=== PATIENT | male | born 1940 | race Caucasian/White ===

== ENCOUNTER 2017-10-18 08:52 | Inpatient (IN) | payer OTHER, SELFPAY ==
[2017-10-09 08:48] VITALS: BMI 21.1
[2017-10-18] VITALS (14 sets, daily range): BP systolic 97–129; BP diastolic 59–78; PULSE 69–97; RESP 14–18; TEMP 36.3–37.7; O2SAT 95–99; BMI 19.1
--- NOTE | 2017-10-18 | DI.RAD.S_ITS ---
PROCEDURE: XR PELVIS 1-2V INDICATIONS: POST OPERATIVE RIGHT HIP TECHNIQUE: 1 view of the lower pelvis acquired. COMPARISON: [facility] [place], CR, XR PELVIS WITH LATERAL HIP RIGHT, 10/09/2017, 15:13. FINDINGS: Bones: Patient is status post right hip arthroplasty, with hardware components in expected positions. The hip joint appears congruent. The visualized bony structures appear intact. Soft tissues: Overlying postoperative changes are noted. No suspicious soft tissue densities. IMPRESSION: Right hip prosthesis in anatomic alignment. Dictated by: Jc Vázquez M.D. on 10/18/2017 at 12:37 Approved by: Jc Vázquez M.D. on 10/18/2017 at 12:38
--- NOTE | 2017-10-18 09:28 | SUR.PREOP ---
IV start by Joel milligan RN
[2017-10-18] MEDS: LACTATED RINGERS 1,000 ML 42 ML IV (09:39)
--- NOTE | 2017-10-18 10:00 | PM.PREOP ---
Pre-operative Note Interval Note Pre-op Check: History & Physical Reviewed by Physician and Changes
[2017-10-18] MEDS: CEFAZOLIN 1 GM/50 ML FROZ.PIGGY IV (10:19)
[2017-10-18] MEDS: CEFAZOLIN 1 GM VIAL IV (10:23)
--- NOTE | 2017-10-18 11:00 | SUR.OPER ---
Lateral on padded OR bed. Gel axillary roll. Arms secured on padded armboard with pillow supporting top arm. Padded hip positioner braces x4 - anterior and posterior chest and pelvis. Additional gel pad used anterior pelvis. Gel pad under bottom leg from knee to foot and secured with tape over sheet.
[2017-10-18] MEDS: BUPIVACAINE 0.25% W/ EPI 50 ML VIAL INJ (11:14)
[2017-10-18] MEDS: BUPIVACAINE LIPOSOME 266 MG/20 ML VIAL SUBCUT (11:15)
--- NOTE | 2017-10-18 12:02 | P.OP_ITS ---
Operative Date/Time/Diagnoses - Date of procedure: 10/18/17 Time of procedure: 11:57 Pre-op diagnosis: Right hip osteoarthritis Post-op diagnosis: same Procedure & Clinicians Procedure: Right total hip arthroplasty (CPT code 98774 with speech correction assistant) Same procedure as scheduled: Yes Indications: Patient is an 77-year-old male with severe right hip DJD. The patient has pain with activities and at rest, limited ambulation and activity tolerance, difficulties with ADLs, and failure of conservative treatment. We have discussed the nature of condition, treatment options, risks and benefits, and patient elects to proceed with total hip arthroplasty and gives informed consent. Surgeon: Giovanny Henderson Link Wire Fabric Machine Tender: Sulma Humphries Anesthesia Type: General and Spinal Operative Notes Closure Type: primary Implants & Drains: Acetabulum: Victor [employer]hew R3 acetabular component size 52 mm Femoral component: Victor [employer]hew Synergy stem size 16 with standard offset Femoral head: 36 mm + 0 cobalt chrome Estimated Blood Loss (mL): 100 Blood products transfused: none Procedure in detail: After satisfaction induction of anesthetic, and administration of IV antibiotics, the patient was positioned in the lateral decubitus position with all bony prominences well padded and pelvic position secured using a hip gps navigation installer positioning device. Right hip and lower extremity prepped and draped in the usual sterile fashion, 1st dose of intravenous tranexamic acid was administered, then a longitudinal incision was created centered over the greater trochanter and carried sharply through the skin and subcutaneous tissues down to the fascia adelina which was divided longitudinally and retracted with a Charnley retractor. External rotators visualize, cut, tagged, and retracted posteriorly, then the capsule was cut in a T-type fashion with the corners tagged and retracted. Hip was dislocated and femoral neck cut made according to preoperative templating. Acetabular retractors then placed, and the acetabular labrum and osteophytes were excised. The acetabulum was then sequentially reamed to 51 mm with an excellent circumferential ream and fit with the trial. The trial component was removed and a permanent size 52 mm Victor and Nephew R3 acetabular component was selected, positioned, and impacted with satisfactory position and fixation achieved. Permanent liner was then inserted with the elevated lip directed posteriorly. Soft tissue then removed off the lateral femoral neck in the lateral neck was entered using a box osteotome. T-handled reamers placed down the canal followed by sequential broaching to 16 with the final broach left in place for trial reduction which demonstrated excellent leg length, range of motion, and stability characteristics with a 36 mm +0 trial ball. The trial and broach were removed, and a permanent size 16 Victor and Nephew Synergy stem was selected and inserted with excellent position and fixation achieved. Another trial reduction yielded the above characteristics so the trial ball was exchanged for a permanent 36 mm +0 cobalt chrome ball. The hip was irrigated and reduced and excellent leg length range of motion and stability characteristics were achieved and maintained. Periarticular tissues were infiltrated with Exparel. The hip was copiously irrigated, and the capsule repaired with #2 Ethibond, and the piriformis was repaired back to the greater trochanter with the same. Fascia adelina closed with interrupted #1 Ethibond sutures, and the subcutaneous tissues were closed in 2 layers of 0 Vicryl and 2 0 Vicryl. Skin was closed with lexi and sterile dressings applied. Second dose of tranexamic acid was administered intravenously, and the anesthetic was terminated. Complications: none Condition: stable Disposition: PACU Plan for aftercare: Patient will be admitted to the acute care foster, and anticipate discharge on postop day 2 or 3 with follow-up in office in 10-14 days. Outpatient physical therapy will be arranged and patient will continue to observe posterior hip precautions. Patient will continue use of postoperative Lovenox for 10 days postop.
[2017-10-18] MEDS: fentaNYL 100 MCG/2 ML INJ IV (12:08)
[2017-10-18] MEDS: HYDROMORPHONE 0.5 MG INJ IV (12:25)
[2017-10-18] MEDS: LACTATED RINGERS 1,000 ML 100 ML IV (15:59)
--- NOTE | 2017-10-18 16:04 | RT ---
PT SEEN POST-OP TOTAL HIP, PT ALSO USES MDI'S AT HOME, MDI ALBUTEROL X2 WHIFFS PRN @ HOME, DPI, ADVAIR X1 WHIFF Q-DAY DPI. c SPRIVIA X1 WHIFF Q-DAY. WILL LEAVE A NOTE FOR ORDER OF THESE INHALERS.
[2017-10-18] MEDS: HYDROCODONE/ACET 5/325 TABLET 2 TAB PO ×2 (16:58→21:34)
[2017-10-18] MEDS: FLUTICASONE/SALMETEROL 500/50 14 PUFF DISKUS INH (17:19)
[2017-10-18] MEDS: CEFAZOLIN 2 GM/100 ML FROZ.PIGGY IV (18:53)
[2017-10-18] MEDS: DOCUSATE 100 MG CAPSULE PO (20:18)
[2017-10-18] MEDS: HYDROMORPHONE 0.5 MG INJ 1 MG IV (21:35)
[2017-10-19] VITALS (11 sets, daily range): BP systolic 99–133; BP diastolic 58–76; PULSE 74–105; RESP 12–19; TEMP 36.6–38.2; O2SAT 93–97; BMI 19.1
[2017-10-19] MEDS: HYDROCODONE/ACET 5/325 TABLET 2 TAB PO ×2 (01:29→05:45)
--- NOTE | 2017-10-19 02:23 | PC.NURSE ---
C/O insomnia & anxiety, states I take Lorazepam 0.5 mg. as needed twice a day @ home. No order in his MAR. Dr. Victor notified via pager, awaiting call back.
[2017-10-19] MEDS: CEFAZOLIN 2 GM/100 ML FROZ.PIGGY IV (03:00)
[2017-10-19] MEDS: LACTATED RINGERS 1,000 ML 100 ML IV (03:00)
[2017-10-19] MEDS: LORazepam 0.5 MG TABLET PO (03:15)
[2017-10-19] MEDS: HYDROMORPHONE 0.5 MG INJ 1 MG IV ×2 (04:53→08:09)
[2017-10-19 06:17] LABS: Hematocrit 35.5 % (41-53); Hemoglobin 12.2 g/dL (13.5-17.5)
[2017-10-19] MEDS: hydrOXYzine pamoate 25 MG CAPSULE PO ×4 (06:34→20:20)
[2017-10-19] MEDS: DOCUSATE 100 MG CAPSULE PO ×2 (08:09→20:20)
[2017-10-19] MEDS: FLUTICASONE/SALMETEROL 500/50 14 PUFF DISKUS INH (08:32)
[2017-10-19] MEDS: TIOTROPIUM BROMIDE 18 MCG INHALER INH (08:32)
--- NOTE | 2017-10-19 09:31 | P.PN_ITS ---
Subjective Interval history: Patient was seen postop day 1 status post right posterior JEY. Patient is doing well however he has had difficulties with oxycodone in the past and has been in pain management previously. The only thing that has worked for him so far is IV Dilaudid. He is anxious to work with physical therapy. Date Patient Seen: 10/19/17 Time Patient Seen: 09:00 Exam Vital Signs (past 8 hours): Vital Signs - 8 hr 3 10/19/17 03:06 10/19/17 04:23 10/19/17 08:33 Temperature 99.0 F Pulse Rate 76 74 84 Respiratory Rate 18 12 Blood Pressure 113/58 L 108/64 Pulse Oximetry 96 94 Pulse Oximetry 94 Fraction of Inspired Oxygen 21 Oxygen Delivery Method Room Air Oxygen Flow Rate 0 Narrative Exam Narrative: Patient is well-developed well-nourished in no acute distress. Patient alert oriented x3. Examination of the right lower extremity shows that he is neurovascularly intact with no signs of erythema edema. Dressing is clean dry and intact over the incision. Patient has full range of motion at the ankle and is able to fire quadriceps muscles. Calf is soft and compressible. Objective Labs Result Diagrams: 10/19/17 05:55 Labs: Laboratory Results - last 24 hr 10/19/17 05:55 Hgb 12.2 L Hct 35.5 L Assessment & Plan Post-op (1) Osteoarthritis of right hip: Current Visit: Yes Status: Acute Postoperative Procedures Operation Date: 10/18/17 09:45 Actual Procedures Side Surgeon p Total Hip Arthroplasty Right Giovanny Henderson MD Patient's medications were changed from oxycodone to Dilaudid is he has not had good success with oxycodone in the past. He will require physical therapy and continue DVT prophylaxis. Discharge home possible tomorrow. Postoperative day: 1 Postoperative plan: routine post-op care, see orders and ambulate Time Spent With Patient less than 15 minutes Quality VTE Deep Vein Thrombosis/Pulmonary Embolism Present on Admission: No
[2017-10-19] MEDS: ENOXAPARIN 40 MG/0.4 ML SYRINGE SUBCUT (10:03)
[2017-10-19] MEDS: HYDROMORPHONE 2 MG TABLET PO ×3 (10:05→19:32)
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
--- NOTE | 2017-10-19 12:13 | CM.DPC ---
Addendum entered by Varsha Hernandez 10/19/17 12:38: SW requested OT eval for DCP and Auth needs. Original Note: Patient's discharge goals remain home with supportive family. Patient declines PT recommendation for SNF. Patient agreeable to allow SW to initiate SNF auth if patient decides to accept PT recommendation. SNF auth faxed to [place] this date. Patient eligible for SNF coverage effective Saturday 10/21.
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
--- NOTE | 2017-10-19 15:59 | OT.IP.TRT ---
Current Diagnoses Unilateral primary osteoarthritis, right hip (10/18/17) Surgery Performed Operation Date: 10/18/17 09:45 Actual Procedures p Total Hip Arthroplasty(Right) - Giovanny Henderson MD Occupational Therapy Treatment Note M2 OT-IP Current Condition Start: 10/19/17 15:49 Freq: Status: Active Protocol: Document 10/19/17 15:50 ADH (Rec: 10/19/17 15:59 ADH [id number]) Occupational Therapy Current Condition Current Condition Treatment Diagnosis RTHA Diagnosis Onset Date 10/18/17 Post Operative Precautions Posterior Hip Precautions No Hip Flexion > 90 degrees No Hip Internal Rotation No Hip Adduction Other Precautions falls Weight Bearing Status Weight Bearing Status Weight Bear as Tolerated M3 OT- IP Subjective and Pain Start: 10/19/17 15:49 Freq: Status: Active Protocol: Document 10/19/17 15:50 ADH (Rec: 10/19/17 15:59 ADH [email or web address]) OT- Subjective Occupational Therapy Visit Type Type Initial Evaluation Visit Start Time 03:02 Visit Stop Time 03:52 Total Visit Minutes 50 Notes Pt agreeable to OT eval, premedicated Occupational Therapy Visit Comments Patient/Caregiver Goals to d/c home OT Pain Assessment Pain When Pain Assessed During Mobility Pain Present Pain Present Pain Reported Location Bilateral Neck Pain Behaviors Calling Out Facial Grimacing Guarding Holding Area Moaning Wincing Management Techniques Apply Cold Distraction Elevation Modification of Treatment Re-positioning Timing of Activity with Medications M6 OT- IP Functional Cognition Start: 10/19/17 15:49 Freq: Status: Active Protocol: Document 10/19/17 15:50 ADH (Rec: 10/19/17 15:59 ADH [email or web address]) Cognitive Factors Limiting Selfcare Function Cognitive Ability Level of Alertness Drowsy Lethargic Patient Orientation Name Date Year Situation Attention Span Ability Unable to Focus Unable to Sustain Attention Ability to Follow Commands Able to Follow One Step Commands Safety Awareness Decreased Recall of Precautions Decreased Ability to Apply Precautions Problem Solving Ability Needs Assist to Identify Solutions Cognitive Comments Cognitive Assessment Comments Pt recalled 0/3 precautions, needed total A to adhere to precautions during transfers OT- Vision and Hearing OT- Vision Assessment Visual Acuity Glasses All The Time M7 OT- IP Mobility and Balance Start: 10/19/17 15:49 Freq: Status: Active Protocol: Document 10/19/17 15:50 ADH (Rec: 10/19/17 15:59 ADH [email or web address]) OT- Bed Mobility Assessment Rolling Level of Assistance Moderate Assistance Supine to Sit Supine to Sit Assist Maximum Assistance Sit to Supine Sit to Supine Assist Maximum Assistance Scooting Scooting to Edge of Bed Maximum Assistance OT-Transfer Assessment Sit to and From Stand Sit to and from Stand Moderate Assistance 2 Person Assistance Transfers Transfer Ability Maximum Assistance 2 Person Assistance Technique Transfer Destination Chair Transfer Technique Stand Step Pivot Devices Transfer Assistive Devices Gait Belt Front Wheeled Walker Comments Mobility Comments Pt with previous contracture of R ankle into plantar flexion, unable to weight bear on R leg d/t pain and fear OT- Gait Assessment Gait Gait Assistance Required: Maximum Assistance 2 Person Assist Distance (Feet) (feet) 10 Comments Gait Ability Comments Able to bear some weight onto R leg, not much OT- Balance Assessment Sitting Balance and Reactions Static Sitting Balance Ability Good Dynamic Sitting Balance Ability Fair Standing Balance and Reactions Static Standing Balance Ability Fair Dynamic Standing Balance Ability Fair M9 OT- IP Assessment and Plan Start: 10/19/17 15:49 Freq: Status: Active Protocol: Document 10/19/17 15:50 ADH (Rec: 10/19/17 15:59 ADH [email or web address]) OT Summary Assessment and Plan Potential Rehabilitation Potential Good Analytic Complexity at Evaluation Low Summary OT Impairments Pain Range of Motion Strength Balance Coordination Functional Cognition Functional Mobility Assessment Summary Pt with difficulty following 1 step cues despite tactile support. Pt with eyes closed throughout, needing cues to open 100% of time. Pt reports not drowsy, but 'eyes keep shutting on me'. Pt's decreased cognition and alertness likely d/t medication management. Despite premedication, pt cont to have low tolerance for any perceived movement or contact with RLE, often grimacing or wincing before contact is made . Pt was guarded throughout, which may have exacerbated his pain perception. Pt is far below baseline functional mobility, and below previous PT session. Pt is not appropriate to d/c home without increased support, which spouse is unable to provide. Pt will benefit from skilled OT services before d/c to SNF Goals Toileting Goal Contact Guard Assistance Toilet Transfer Goal Contact Guard Assistance Frequency of Treatment Frequency Of Treatment Once a Day Treatment Plan OT Treatment Plan ADL Training Functional Mobility Patient/Family Education Discharge Planning
[2017-10-19] MEDS: HYDROMORPHONE 4 MG TABLET PO ×2 (16:00→22:28)
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
[2017-10-20] VITALS (9 sets, daily range): BP systolic 106–158; BP diastolic 55–78; PULSE 76–107; RESP 15–18; TEMP 35.5–37.4; O2SAT 92–99
[2017-10-20] MEDS: LORazepam 0.5 MG TABLET PO (00:10)
--- NOTE | 2017-10-20 02:08 | PC.NURSE ---
Checked pt. to medicate him with 4 mg. Dilaudid PO, but he's sound asleep. Medicated with 0.5 mg. of PO Ativan @ 0010, will monitor.
[2017-10-20] MEDS: HYDROMORPHONE 2 MG TABLET PO ×6 (03:43→22:57)
[2017-10-20] MEDS: DOCUSATE 100 MG CAPSULE PO (08:13)
[2017-10-20] MEDS: ENOXAPARIN 40 MG/0.4 ML SYRINGE SUBCUT (09:08)
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
[2017-10-20] MEDS: FLUTICASONE/SALMETEROL 500/50 14 PUFF DISKUS INH ×2 (09:31→19:03)
[2017-10-20] MEDS: TIOTROPIUM BROMIDE 18 MCG INHALER INH (09:31)
--- NOTE | 2017-10-20 09:54 | PM.PNPO.1 ---
Subjective Date Patient Seen: 10/20/17 Time Patient Seen: 09:54 Interval history: Pt is status post right total hip arthroplasty by Dr. Henderson. Postop day 2. Patient had a lot of issues with pain control yesterday and was switched to Dilaudid 2 mg which is controlling his pain today. He is not mobilize much with physical therapy at all. He also has issues at home where his is sick and cannot take care of him but he refuses to go to a residential facility for further rehab and therapy. He will need to be in the hospital until probably Sunday before being discharged home. Exam Vital Signs (past 8 hours): Vital Signs - 8 hr 10/20/17 06:33 10/20/17 08:00 10/20/17 09:32 Temperature 98.6 F 97.3 F L Pulse Rate 89 94 H 88 Respiratory Rate 16 18 18 Blood Pressure 154/75 H 130/78 H Pulse Oximetry 99 97 94 Pulse Oximetry 94 Fraction of Inspired Oxygen 21 Oxygen Delivery Method Room Air Oxygen Flow Rate 0 Narrative Exam Narrative: Patient in bed. Appears comfortable. Alert and orient x3. Right hip dressing clean and dry. Bilateral calf soft and nontender. Good strength in right ankle. Neurovascular status intact. There is previous scarring from the right patella area all the way down to the right ankle. Objective Labs Result Diagrams: 10/19/17 05:55 Assessment & Plan Post-op (1) Osteoarthritis of right hip: Problem details: Patient is status post right total hip replacement. Postop day 2. Patient is slow to ambulate due to pain control issues postop day 1. Patient will mobilize with physical therapy today. DVT prophylaxis with Lovenox and SCDs. Anticipate discharge home with home health PT on Sunday. Current Visit: Yes Status: Acute Postoperative Procedures Operation Date: 10/18/17 09:45 Actual Procedures Side Surgeon p Total Hip Arthroplasty Right Giovanny Henderson MD Time Spent With Patient less than 15 minutes Quality VTE Deep Vein Thrombosis/Pulmonary Embolism Present on Admission: No
--- NOTE | 2017-10-20 10:02 | P.PN_ITS ---
Subjective Date Patient Seen: 10/20/17 Time Patient Seen: 09:54 Interval history: Pt is status post right total hip arthroplasty by Dr. Henderson. Postop day 2. Patient had a lot of issues with pain control yesterday and was switched to Dilaudid 2 mg which is controlling his pain today. He is not mobilize much with physical therapy at all. He also has issues at home where his is sick and cannot take care of him but he refuses to go to a retirement facility for further rehab and therapy. He will need to be in the hospital until probably Sunday before being discharged home. Exam Vital Signs (past 8 hours): Vital Signs - 8 hr 3 10/20/17 06:33 10/20/17 08:00 10/20/17 09:32 Temperature 98.6 F 97.3 F L Pulse Rate 89 94 H 88 Respiratory Rate 16 18 18 Blood Pressure 154/75 H 130/78 H Pulse Oximetry 99 97 94 Pulse Oximetry 94 Fraction of Inspired Oxygen 21 Oxygen Delivery Method Room Air Oxygen Flow Rate 0 Narrative Exam Narrative: Patient in bed. Appears comfortable. Alert and orient x3. Right hip dressing clean and dry. Bilateral calf soft and nontender. Good strength in right ankle. Neurovascular status intact. There is previous scarring from the right patella area all the way down to the right ankle. Objective Labs Result Diagrams: 10/19/17 05:55 Assessment & Plan Post-op (1) Osteoarthritis of right hip: Problem details: Patient is status post right total hip replacement. Postop day 2. Patient is slow to ambulate due to pain control issues postop day 1. Patient will mobilize with physical therapy today. DVT prophylaxis with Lovenox and SCDs. Anticipate discharge home with home health PT on Sunday. Current Visit: Yes Status: Acute Postoperative Procedures Operation Date: 10/18/17 09:45 Actual Procedures Side Surgeon p Total Hip Arthroplasty Right Giovanny Henderson MD Time Spent With Patient less than 15 minutes Quality VTE Deep Vein Thrombosis/Pulmonary Embolism Present on Admission: No
[2017-10-20] MEDS: MAGNESIUM HYDROXIDE 30 ML UDC PO (10:13)
--- NOTE | 2017-10-20 12:15 | PT.IPTN ---
Current Diagnoses Unilateral primary osteoarthritis, right hip (10/18/17) Surgery Performed Operation Date: 10/18/17 09:45 Actual Procedures p Total Hip Arthroplasty(Right) - Giovanny Henderson MD Physical Therapy Treatment Note M2 PT-IP Current Condition Start: 10/19/17 11:34 Freq: NEEDED Status: Active Protocol: Document 10/19/17 11:34 AB (Rec: 10/19/17 11:49 AB [id number]) Physical Therapy Current Condition Current Condition Evaluation Date 10/19/17 Treatment Diagnosis s/p R JEY; difficulty in walking Onset Date 10/18/17 Post Operative Precautions Posterior Hip Precautions No Hip Flexion > 90 degrees No Hip Internal Rotation No Hip Adduction Other Precautions falls Weight Bearing Status Weight Bearing Status Weight Bear as Tolerated M3 PT-IP Subjective Start: 10/19/17 11:34 Freq: NEEDED Status: Active Protocol: Document 10/20/17 12:03 AB (Rec: 10/20/17 12:15 AB [id number]) Subjective Physical Therapy Visit Type Type Treatment Note Visit Start Time 11:19 Visit Stop Time 12:04 Total Visit Minutes 35 Number of ENGINEERING SURVEYOR Visits 0 Physical Therapy Visit Comments Patient Comments pt requested to use the toilet Therapy Pain Assessment Pain When Pain Assessed At Rest Pain Present Pain Present Pain Reported Location Bilateral Neck Intensity 4 Scale Used Numeric (1 - 10) Pain Management Techniques Timing of Activity with Medications M4 PT-IP Mobility and Gait Start: 10/19/17 11:34 Freq: NEEDED Status: Active Protocol: Document 10/20/17 12:03 AB (Rec: 10/20/17 12:15 AB [id number]) PT-Bed Mobility Assessment Supine to Sit Supine to Sit Minimal Assistance Moderate Assistance Scooting Scooting to Edge of Bed Minimal Assistance PT-Transfer Assessment Sit to and From Stand Sit to and from Stand Maximum Assistance Equipment Transfer Assistive Device Gait Belt Front Wheeled Walker Orthotic/Prosthetic Devices or Brace: No Transfers Transfer Destination Chair Bedside Commode Transfer Technique Stand Step Pivot Transfer Ability Level of Assist Maximum Assistance Comments Mobility Comments pt required 3 attempts for sit to stand before being able to complete with max cues. required RLE stabilization as RLE tends to rotate inwards. pt transferred to bedside commode using fWW max A. came back to assist pt with NAC present. pt completed sit to stand from bedside commode max A and max cues and was able to maintain standing mod A using FWW while NAC assisted with hygiene care. pt transferred to chair from bedside commode taking ~ 4 steps using FWW max A and cues . assisted pt with descent to chair mod A and max cues. positioned pt on chair. left pt with NAC. M5 PT-IP Objective Assessments Start: 10/19/17 11:34 Freq: NEEDED Status: Active Protocol: Document 10/19/17 11:34 AB (Rec: 10/19/17 11:49 AB [id number]) Orientation Orientation/Cognition Level of Alertness Confusional State Orientation Name Situation Safety Awareness Decreased Safety Awareness Memory Description Short Term Impaired Nursing Home Impaired Strength Lower Extremity Strength Assessment Bilaterally Impaired M6 PT-IP Treatment Start: 10/19/17 11:34 Freq: NEEDED Status: Active Protocol: Document 10/20/17 12:03 AB (Rec: 10/20/17 12:15 AB [id number]) Physical Therapy Treatment Education Post-Op Education Precautions Weight Bearing Status Post-Op Packet Safety Other Treatments Other Treatment Performed reviewed R posterior hip precautions and pt continues to require cues to recall M7 PT-IP Assessment and Plan Start: 10/19/17 11:34 Freq: NEEDED Status: Active Protocol: Document 10/20/17 12:03 AB (Rec: 10/20/17 12:15 AB [id number]) PT Summary Assessment and Plan Potential Rehabilitation Potential Fair Summary Impairments Pain ROM Strength Balance Coordination Sensation Cognition Bed Mobility Transfers Gait Activity Tolerance Progress Towards Goals Slow Progress due to Medical Issues Assessment Summary pt progressing slowly but continues to require max A with mobility and max cues for all tasks. pt will require SNF rehab to improve function and mobility. Pt's spouse will not be able to assist pt at home. Goals Bed Mobility Goal Contact Guard Assistance Transfer Goal Contact Guard Assistance Gait Goal Contact Guard Assistance Gait Distance 100 Other Goals up/down 2 steps without rails Days to Meet Goals 3 Frequency of Treatment Frequency Of Treatment Twice a Day Treatment Plan Physical Therapy Treatment Plan Bed Mobility Training Transfer Training Gait Training Therapeutic Exercise Balance Retraining Post Op Education Discharge Planning Hot or Cold Pack Neuromuscular Re-ed Coordination Retraining Manual Therapy Recommendations To Nursing Amount of Assist Needed 1 Person Assist 2 Person Assist Discharge Recommendations PT Discharge Recommendations SNF Rehab Equipment Needed for Home Before FWW: pt will see if he can Discharge borrow/rent one
--- NOTE | 2017-10-20 14:13 | CM.DPC ---
Addendum entered by Leonor Perdomo LPN 10/20/17 15:39: clinical is faxed. Will need to send F/F paperwork, final HH orders and H&P tomorrow. Will follow up. Original Note: Addendum entered by Leoonr Perdomo LPN 10/20/17 15:11: [facility] had not called back so called [facility] and spoke with Belem. She confirms they can see pt on Sunday if he d/c's Sunday. Initial clinical faxed to [facility] per her request: [phone] Will follow with further paperwork tomorrow. Pt is updated. Original Note: DCP: case received, EMR reviewed and met this morning with pt and ortho SERENA Blackmon. Pt states firmly that he does not wish a snf rehab stay and does plan to go home. He would very much like HH PT/OT. Agency choice list: provided: [facility]: choice if can go out day after d/c. (d/c expected Sunday). referral to [facility]/. will await callback. Face/Face: started: Dr. Henderson. OT/PT orders will be obtained. SERENA Blackomn is very much in favor of this plan. Spoke with pt's Velma cell: [phone] at her request and after receiving pt's ok) and she , too, is very agreeable. She says her did go to snf rehab when had his L hip 4 years ago and was miserable. P: home, likely Sunday, OT/PT. PT's friend Esa will pick him up and he will arrange this.
--- NOTE | 2017-10-20 14:27 | OT.IP.TRT ---
Current Diagnoses Unilateral primary osteoarthritis, right hip (10/18/17) Surgery Performed Operation Date: 10/18/17 09:45 Actual Procedures p Total Hip Arthroplasty(Right) - Giovanny Henderson MD Occupational Therapy Treatment Note M2 OT-IP Current Condition Start: 10/19/17 15:49 Freq: Status: Active Protocol: Document 10/19/17 15:50 ADH (Rec: 10/19/17 15:59 ADH [email or web address]) Occupational Therapy Current Condition Current Condition Treatment Diagnosis RTHA Diagnosis Onset Date 10/18/17 Post Operative Precautions Posterior Hip Precautions No Hip Flexion > 90 degrees No Hip Internal Rotation No Hip Adduction Other Precautions falls Weight Bearing Status Weight Bearing Status Weight Bear as Tolerated M3 OT- IP Subjective and Pain Start: 10/19/17 15:49 Freq: Status: Active Protocol: Document 10/20/17 14:24 ADH (Rec: 10/20/17 14:27 ADH [email or web address]) OT- Subjective Occupational Therapy Visit Type Type Treatment Note Visit Start Time 01:58 Visit Stop Time 02:23 Total Visit Minutes 25 Notes Pt agreeable to OT services with encouragement OT Pain Assessment Pain When Pain Assessed At Rest Pain Present Pain Present Pain Reported Location Bilateral Neck Intensity 5 Scale Used Numeric (1 - 10) Management Techniques Distraction Elevation Modification of Treatment Re-positioning M4 OT- IP ADL's Start: 10/19/17 15:49 Freq: Status: Active Protocol: Document 10/20/17 14:24 ADH (Rec: 10/20/17 14:27 ADH [email or web address]) OT ADL-Dressing General Eval Lower Body Dressing Ability Standby Assistance Comments OT Dressing Comments Pt demo'd sock donning with sock aide on non operated leg, verbal cues only. M6 OT- IP Functional Cognition Start: 10/19/17 15:49 Freq: Status: Active Protocol: Document 10/19/17 15:50 ADH (Rec: 10/19/17 15:59 ADH [email or web address]) Cognitive Factors Limiting Selfcare Function Cognitive Ability Level of Alertness Drowsy Lethargic Patient Orientation Name Date Year Situation Attention Span Ability Unable to Focus Unable to Sustain Attention Ability to Follow Commands Able to Follow One Step Commands Safety Awareness Decreased Recall of Precautions Decreased Ability to Apply Precautions Problem Solving Ability Needs Assist to Identify Solutions Cognitive Comments Cognitive Assessment Comments Pt recalled 0/3 precautions, needed total A to adhere to precautions during transfers OT- Vision and Hearing OT- Vision Assessment Visual Acuity Glasses All The Time M7 OT- IP Mobility and Balance Start: 10/19/17 15:49 Freq: Status: Active Protocol: Document 10/20/17 14:24 ADH (Rec: 10/20/17 14:27 ADH [email or web address]) OT-Transfer Assessment Sit to and From Stand Sit to and from Stand Minimal Assistance Transfers Transfer Ability Minimal Assistance Technique Transfer Destination Bedside Commode Transfer Technique Stand Step Pivot Devices Transfer Assistive Devices Gait Belt Front Wheeled Walker Comments Mobility Comments Pt with improved sit/stand from chairs with arms x 2, incl BSC and FWW, min A only. Improved pain management this session. improved cognition and mobility and alertness. M9 OT- IP Assessment and Plan Start: 10/19/17 15:49 Freq: Status: Active Protocol: Document 10/20/17 14:24 ADH (Rec: 10/20/17 14:27 ADH [email or web address]) OT Summary Assessment and Plan Summary OT Impairments Pain Strength Balance Progress Towards Goals Progressing Toward Goals Assessment Summary Cont to make good progress toward goals. Frequency of Treatment Frequency Of Treatment Once a Day Treatment Plan OT Treatment Plan ADL Training Functional Mobility Discharge Recommendations OT Discharge Recommendations SNF Rehab Other Discharge Recommendations Cont to recc SNF d/t increased needs over baseline and slow progress.
--- NOTE | 2017-10-20 15:50 | PT.IPTN ---
Current Diagnoses Unilateral primary osteoarthritis, right hip (10/18/17) Surgery Performed Operation Date: 10/18/17 09:45 Actual Procedures p Total Hip Arthroplasty(Right) - Giovanny Henderson MD Physical Therapy Treatment Note M2 PT-IP Current Condition Start: 10/19/17 11:34 Freq: NEEDED Status: Active Protocol: Document 10/19/17 11:34 AB (Rec: 10/19/17 11:49 AB [id number]) Physical Therapy Current Condition Current Condition Evaluation Date 10/19/17 Treatment Diagnosis s/p R JEY; difficulty in walking Onset Date 10/18/17 Post Operative Precautions Posterior Hip Precautions No Hip Flexion > 90 degrees No Hip Internal Rotation No Hip Adduction Other Precautions falls Weight Bearing Status Weight Bearing Status Weight Bear as Tolerated M3 PT-IP Subjective Start: 10/19/17 11:34 Freq: NEEDED Status: Active Protocol: Document 10/20/17 15:44 AB (Rec: 10/20/17 15:49 AB [id number]) Subjective Physical Therapy Visit Type Type Treatment Note Visit Start Time 14:33 Visit Stop Time 14:54 Total Visit Minutes 21 Number of MANAGER POKER Visits 0 Physical Therapy Visit Comments Patient Comments pt requested to go back to bed Therapy Pain Assessment Pain When Pain Assessed At Rest Pain Present Pain Present Pain Reported Location Bilateral Neck Scale Used pain level not stated Pain Management Techniques Timing of Activity with Medications M4 PT-IP Mobility and Gait Start: 10/19/17 11:34 Freq: NEEDED Status: Active Protocol: Document 10/20/17 15:44 AB (Rec: 10/20/17 15:49 AB [id number]) PT-Bed Mobility Assessment Sit to Supine Sit to Supine Maximum Assistance PT-Transfer Assessment Sit to and From Stand Sit to and from Stand Maximum Assistance Equipment Transfer Assistive Device Gait Belt Front Wheeled Walker Transfers Transfer Destination Bed Comments Mobility Comments pt requires cues and stabilization of RLE for sit to stand. Gait Assessment Gait Gait Assistance Required: Maximum Assistance Distance (Feet) (feet) 12 Assistive Devices Assistive Device Gait Belt Front Wheeled Walker Orthotic/Prosthetic Devices or Brace: No Gait Deviations General Gait Pattern Antalgic Decreased Stride Length Decreased Feet Clearance Step-to Gait Factors Limiting Gait Function Factors Limiting Gait Function Decreased Activity Tolerance Decreased Strength Limited Range of Motion Pain Poor Balance Poor Safety Awareness Comments Gait Comments pt with R foot drop affecting ambulation. M5 PT-IP Objective Assessments Start: 10/19/17 11:34 Freq: NEEDED Status: Active Protocol: Document 10/19/17 11:34 AB (Rec: 10/19/17 11:49 AB [id number]) Orientation Orientation/Cognition Level of Alertness Confusional State Orientation Name Situation Safety Awareness Decreased Safety Awareness Memory Description Short Term Impaired Hall Cleaner Impaired Strength Lower Extremity Strength Assessment Bilaterally Impaired M6 PT-IP Treatment Start: 10/19/17 11:34 Freq: NEEDED Status: Active Protocol: Document 10/20/17 12:03 AB (Rec: 10/20/17 12:15 AB [id number]) Physical Therapy Treatment Education Post-Op Education Precautions Weight Bearing Status Post-Op Packet Safety Other Treatments Other Treatment Performed reviewed R posterior hip precautions and pt continues to require cues to recall M7 PT-IP Assessment and Plan Start: 10/19/17 11:34 Freq: NEEDED Status: Active Protocol: Document 10/20/17 15:44 AB (Rec: 10/20/17 15:49 AB [id number]) PT Summary Assessment and Plan Potential Rehabilitation Potential Fair Summary Impairments Pain ROM Strength Balance Sensation Cognition Bed Mobility Transfers Gait Activity Tolerance Progress Towards Goals Slow Progress due to Medical Issues Assessment Summary pt continues to require max A with mobility and presents with unsteady gait requiring max A and max cues for all tasks for techniques and hip precautions. pt will require SNF rehab to improve strength and function prior to d/c home . Goals Bed Mobility Goal Contact Guard Assistance Transfer Goal Contact Guard Assistance Gait Goal Contact Guard Assistance Gait Distance 100 Other Goals up/down 2 steps without rails Days to Meet Goals 3 Frequency of Treatment Frequency Of Treatment Twice a Day Treatment Plan Physical Therapy Treatment Plan Bed Mobility Training Transfer Training Gait Training Therapeutic Exercise Balance Retraining Post Op Education Discharge Planning Hot or Cold Pack Neuromuscular Re-ed Coordination Retraining Manual Therapy Recommendations To Nursing Amount of Assist Needed 1 Person Assist 2 Person Assist Discharge Recommendations PT Discharge Recommendations SNF Rehab Equipment Needed for Home Before FWW: pt will see if he can Discharge borrow/rent one
[2017-10-21] VITALS (7 sets, daily range): BP systolic 108–131; BP diastolic 61–71; PULSE 68–93; RESP 12–18; TEMP 36.9–37.4; O2SAT 93–96
[2017-10-21] MEDS: HYDROMORPHONE 2 MG TABLET PO ×5 (01:57→19:32)
[2017-10-21] MEDS: LORazepam 0.5 MG TABLET PO ×2 (03:10→22:14)
[2017-10-21] MEDS: ALBUTEROL HFA 60 PUFF/8 GM INH INH ×2 (03:15→18:26)
--- NOTE | 2017-10-21 03:23 | PC.NURSE ---
Woke up to used the urinal & not able to go back to sleep. Requested & administered 0.5 mg. of Lorazepam PO. Will monitor.
[2017-10-21] MEDS: TIOTROPIUM BROMIDE 18 MCG INHALER INH (07:14)
[2017-10-21] MEDS: FLUTICASONE/SALMETEROL 500/50 14 PUFF DISKUS INH ×2 (07:14→18:35)
[2017-10-21] MEDS: ENOXAPARIN 40 MG/0.4 ML SYRINGE SUBCUT (08:14)
[2017-10-21] MEDS: HYDROCODONE/ACET 5/325 TABLET 2 TAB PO ×2 (08:21→15:51)
--- NOTE | 2017-10-21 09:41 | PC.NURSE ---
Pt alert and oriented, sitting up in bed, reports pain severe enough to require another dose of dilaudid which was given just 2 hours ago (Q3h prn). Given one vicodin and then dilaudid 2mg PO given after 3.5 hours after first dose of dilaudid. Reports good pain control at this time. Re discharge plans, states does not feel ready to go today because of mobility and pain and spouse is unable to care for pt at home. Thinks Sunday will be good for him, however.
--- NOTE | 2017-10-21 11:49 | CM.DPC ---
DCP: continued: Conferred with PT Juan C in [facility] team rounds re d/c dispo options and then met with pt and Juan C just after he completed his morning PT tx. Both pt and Aniceto gave glowing reports of his progress since yesterday.Pt walked length of the cm and back and his plan for home with support of home health is looking very appropriate. Pt will continue to work with therapists and plans home tomorrow. [facility] is faxed Face/Face and HH orders ([facility] via [facility]). Pt says either his friend Esa or his son in law will pick him up. He is arranging this. DCP team will update [facility] with d/c summary etc at d/c.
--- NOTE | 2017-10-21 12:07 | PT.IPTN ---
Current Diagnoses Unilateral primary osteoarthritis, right hip (10/18/17) Surgery Performed Operation Date: 10/18/17 09:45 Actual Procedures p Total Hip Arthroplasty(Right) - Giovanny Henderson MD Physical Therapy Treatment Note M2 PT-IP Current Condition Start: 10/19/17 11:34 Freq: NEEDED Status: Active Protocol: Document 10/21/17 10:55 RCC (Rec: 10/21/17 12:07 RCC [id number]) Physical Therapy Current Condition Current Condition Evaluation Date 10/19/17 Treatment Diagnosis s/p R JEY; difficulty in walking Onset Date 10/18/17 Post Operative Precautions Posterior Hip Precautions No Hip Flexion > 90 degrees No Hip Internal Rotation No Hip Adduction Other Precautions falls Weight Bearing Status Weight Bearing Status Weight Bear as Tolerated M3 PT-IP Subjective Start: 10/19/17 11:34 Freq: NEEDED Status: Active Protocol: Document 10/21/17 10:55 RCC (Rec: 10/21/17 12:07 RCC [id number]) Subjective Physical Therapy Visit Type Type Treatment Note Visit Start Time 10:25 Visit Stop Time 10:55 Total Visit Minutes 30 Number of DIGITAL MUSIC INSTRUCTOR Visits 0 Physical Therapy Visit Comments Patient Comments Pt reports he had a fairly good night, he wants to be able to d/c tomorrow home. Therapy Pain Assessment Pain Present Pain Present Denied Pain M4 PT-IP Mobility and Gait Start: 10/19/17 11:34 Freq: NEEDED Status: Active Protocol: Document 10/21/17 10:55 RCC (Rec: 10/21/17 12:07 RCC [id number]) PT-Bed Mobility Assessment Supine to Sit Supine to Sit Minimal Assistance 1 Person Assistance Scooting Scooting to Edge of Bed Independent PT-Transfer Assessment Sit to and From Stand Sit to and from Stand Minimal Assistance 1 Person Assistance Equipment Transfer Assistive Device Gait Belt Front Wheeled Walker Transfers Transfer Destination Chair Transfer Technique Stand Step Pivot Transfer Ability Level of Assist Contact Guard Assistance 1 Person Assistance Comments Mobility Comments Increased hip and knee flexion , ankle PF with toes/forefoot @ IC and throughout WB d/t prior injuries to RLE. Gait Assessment Gait Gait Assistance Required: Contact Guard Assist Distance (Feet) (feet) 75 Able to Maintain Weight Bearing Status Yes During Gait Assistive Devices Assistive Device Gait Belt Front Wheeled Walker Gait Deviations General Gait Pattern Decreased Stride Length Decreased Feet Clearance Step-to Gait Factors Limiting Gait Function Factors Limiting Gait Function Decreased Activity Tolerance Decreased Strength Incoordination Limited Range of Motion Poor Balance Comments Gait Comments Increased hip and knee flexion , ankle PF with toes/forefoot @ IC and throughout WB d/t prior injuries to RLE. PT-Balance Assessment Sitting Balance and Reactions Static Sitting Balance Ability Good Dynamic Sitting Balance Ability Good Standing Balance and Reactions Static Standing Balance Ability Fair Dynamic Standing Balance Ability Fair Device Used FWW M5 PT-IP Objective Assessments Start: 10/19/17 11:34 Freq: NEEDED Status: Active Protocol: Document 10/19/17 11:34 AB (Rec: 10/19/17 11:49 AB [id number]) Orientation Orientation/Cognition Level of Alertness Confusional State Orientation Name Situation Safety Awareness Decreased Safety Awareness Memory Description Short Term Impaired Fdc Impaired Strength Lower Extremity Strength Assessment Bilaterally Impaired M6 PT-IP Treatment Start: 10/19/17 11:34 Freq: NEEDED Status: Active Protocol: Document 10/21/17 10:55 RCC (Rec: 10/21/17 12:07 RCC [id number]) Physical Therapy Treatment Exercises Exercises Short Arc Quads Education Post-Op Education Precautions Weight Bearing Status Post-Op Packet Safety Other Treatments Other Treatment Performed SAQ 90-45 deg seated in chair M7 PT-IP Assessment and Plan Start: 10/19/17 11:34 Freq: NEEDED Status: Active Protocol: Document 10/21/17 10:55 RCC (Rec: 10/21/17 12:07 RCC [id number]) PT Summary Assessment and Plan Summary Impairments ROM Strength Balance Bed Mobility Transfers Gait Activity Tolerance Progress Towards Goals Progressing Toward Goals Assessment Summary POD #3 R JEY. Pt able to improve gait to 75 ft with FWW and only requiring CGA for gait. Pt does require RLE management to get OOB and with sit to stand, but is demonstrating improvements with activity tolerance. Pt is not yet cleared to d/c this date, and likely a better candidate for at least one more night stay to continue to progress and promote a safe d /c home. Goals Bed Mobility Goal Contact Guard Assistance Transfer Goal Contact Guard Assistance Gait Goal Contact Guard Assistance Gait Distance 100 Other Goals up/down 2 steps without rails Days to Meet Goals 3 Frequency of Treatment Frequency Of Treatment Twice a Day Treatment Plan Physical Therapy Treatment Plan Bed Mobility Training Transfer Training Gait Training Therapeutic Exercise Balance Retraining Post Op Education Discharge Planning Hot or Cold Pack Neuromuscular Re-ed Coordination Retraining Manual Therapy Other Recommendations and Next Treatment gait, trial stairs Focus Recommendations To Nursing Amount of Assist Needed 1 Person Assist 2 Person Assist Discharge Recommendations PT Discharge Recommendations Home with Assistance Home Health Equipment Needed for Home Before FWW: pt will see if he can Discharge borrow/rent one
--- NOTE | 2017-10-21 12:12 | P.PN_ITS ---
Exam Vital Signs (past 8 hours): Vital Signs - 8 hr 3 10/21/17 06:53 10/21/17 07:15 10/21/17 08:15 Temperature 98.5 F 99.0 F Pulse Rate 85 68 88 Respiratory Rate 16 12 18 Blood Pressure 115/66 114/71 Pulse Oximetry 93 96 93 Pulse Oximetry 93 Fraction of Inspired Oxygen 21 Oxygen Delivery Method Room Air Oxygen Flow Rate 0 Objective Labs Result Diagrams: 10/19/17 05:55 Assessment & Plan Plan: Plan: Patient is admitted after surgery. Patient has been stable and progressing with physical therapy. Patient is neurovascularly intact on exam. Patient has no signs or symptoms of DVT. Patient's dressing is clean dry and intact. He may need SNF placement due to difficulty with PT and mobility training. Will re-assess tomorrow. Quality VTE Deep Vein Thrombosis/Pulmonary Embolism Present on Admission: No
--- NOTE | 2017-10-21 13:53 | PT.IPTN ---
Current Diagnoses Unilateral primary osteoarthritis, right hip (10/18/17) Surgery Performed Operation Date: 10/18/17 09:45 Actual Procedures p Total Hip Arthroplasty(Right) - Giovanny Henderson MD Physical Therapy Treatment Note M2 PT-IP Current Condition Start: 10/19/17 11:34 Freq: NEEDED Status: Active Protocol: Document 10/21/17 13:24 RCC (Rec: 10/21/17 13:53 [facility] [id number]) Physical Therapy Current Condition Current Condition Evaluation Date 10/19/17 Treatment Diagnosis s/p R JEY; difficulty in walking Onset Date 10/18/17 Post Operative Precautions Posterior Hip Precautions No Hip Flexion > 90 degrees No Hip Internal Rotation No Hip Adduction Other Precautions falls Weight Bearing Status Weight Bearing Status Weight Bear as Tolerated M3 PT-IP Subjective Start: 10/19/17 11:34 Freq: NEEDED Status: Active Protocol: Document 10/21/17 13:24 [facility] (Rec: 10/21/17 13:53 [facility] [id number]) Subjective Physical Therapy Visit Type Type Treatment Note Visit Start Time 13:00 Visit Stop Time 13:24 Total Visit Minutes 24 Number of BUSINESS FUNCTIONAL ANALYST Visits 0 Physical Therapy Visit Comments Patient Comments Pt reports he would rather attempt stairs tomorrow, but willing to walk. Therapy Pain Assessment Pain Present Pain Present Pain Reported Location Bilateral Neck Intensity 3 Scale Used Numeric (1 - 10) Description Aching Pain Management Techniques Modification of Treatment M4 PT-IP Mobility and Gait Start: 10/19/17 11:34 Freq: NEEDED Status: Active Protocol: Document 10/21/17 13:24 [facility] (Rec: 10/21/17 13:53 [facility] [id number]) PT-Transfer Assessment Sit to and From Stand Sit to and from Stand Contact Guard Assistance Equipment Transfer Assistive Device Gait Belt Front Wheeled Walker Transfers Transfer Destination Chair Transfer Technique Stand Step Pivot Transfer Ability Level of Assist Contact Guard Assistance Comments Mobility Comments Increased hip and knee flexion , ankle PF with toes/forefoot @ IC and throughout WB d/t prior injuries to RLE. Gait Assessment Gait Gait Assistance Required: Contact Guard Assist Distance (Feet) (feet) 120 Assistive Devices Assistive Device Gait Belt Front Wheeled Walker Gait Deviations General Gait Pattern Antalgic Decreased Stride Length Decreased Feet Clearance Factors Limiting Gait Function Factors Limiting Gait Function Decreased Activity Tolerance Decreased Strength Pain Poor Balance Comments Gait Comments Increased hip and knee flexion , ankle PF with toes/forefoot @ IC and throughout WB d/t prior injuries to RLE. Final 15 ft of gait increasing in antalgic intensity. Stair Climbing Assessment Comments Stair Climbing Comments pt respectfully declined stair training this date. PT-Balance Assessment Sitting Balance and Reactions Static Sitting Balance Ability Normal Dynamic Sitting Balance Ability Normal Standing Balance and Reactions Static Standing Balance Ability Good Dynamic Standing Balance Ability Fair Device Used FWW M5 PT-IP Objective Assessments Start: 10/19/17 11:34 Freq: NEEDED Status: Active Protocol: Document 10/19/17 11:34 AB (Rec: 10/19/17 11:49 AB [id number]) Orientation Orientation/Cognition Level of Alertness Confusional State Orientation Name Situation Safety Awareness Decreased Safety Awareness Memory Description Short Term Impaired Sales Contractor Impaired Strength Lower Extremity Strength Assessment Bilaterally Impaired M6 PT-IP Treatment Start: 10/19/17 11:34 Freq: NEEDED Status: Active Protocol: Document 10/21/17 13:24 RCC (Rec: 10/21/17 13:53 RCC [id number]) Physical Therapy Treatment Education Post-Op Education Precautions Safety M7 PT-IP Assessment and Plan Start: 10/19/17 11:34 Freq: NEEDED Status: Active Protocol: Document 10/21/17 13:24 RCC (Rec: 10/21/17 13:53 [facility] [id number]) PT Summary Assessment and Plan Summary Progress Towards Goals Progressing Toward Goals Assessment Summary POD #3 R JEY. Pt able to increase his gait distance, with increased pain on final 15 ft of gait. He demonstrates knee and hip flexion to advance his R foot due to foot drop. He is at risk for falls , but is improving with his mobility, and potentially could d/c home if he is able to manage stairs safely. Goals Bed Mobility Goal Contact Guard Assistance Transfer Goal Contact Guard Assistance Gait Goal Contact Guard Assistance Gait Distance 100 Other Goals up/down 2 steps without rails Days to Meet Goals 3 Frequency of Treatment Frequency Of Treatment Twice a Day Treatment Plan Physical Therapy Treatment Plan Bed Mobility Training Transfer Training Gait Training Therapeutic Exercise Balance Retraining Post Op Education Discharge Planning Hot or Cold Pack Neuromuscular Re-ed Coordination Retraining Manual Therapy Other Recommendations and Next Treatment gait, trial stairs Focus Recommendations To Nursing Amount of Assist Needed 1 Person Assist Discharge Recommendations PT Discharge Recommendations Home with Assistance Home Health Equipment Needed for Home Before FWW: pt will see if he can Discharge borrow/rent one
[2017-10-22] MEDS: HYDROMORPHONE 2 MG TABLET PO ×2 (00:39→06:40)
[2017-10-22 03:03] VITALS: TEMP 37.1
[2017-10-22] MEDS: ACETAMINOPHEN 325 MG TABLET 650 MG PO (03:20)
[2017-10-22 04:54] VITALS: BP 104/61; PULSE 74; RESP 17; TEMP 36.3; O2SAT 95
[2017-10-22] MEDS: TIOTROPIUM BROMIDE 18 MCG INHALER INH (07:39)
[2017-10-22] MEDS: FLUTICASONE/SALMETEROL 500/50 14 PUFF DISKUS INH (07:39)
[2017-10-22 07:40] VITALS: PULSE 82; RESP 14; O2SAT 94
[2017-10-22 07:54] VITALS: PULSE 82; RESP 14; O2SAT 94
[2017-10-22 08:00] VITALS: BP 107/71; PULSE 79; RESP 16; TEMP 36.7; O2SAT 93
[2017-10-22] MEDS: HYDROCODONE/ACET 5/325 TABLET 2 TAB PO ×2 (08:35→12:32)
[2017-10-22] MEDS: ENOXAPARIN 40 MG/0.4 ML SYRINGE SUBCUT (08:35)
--- NOTE | 2017-10-22 09:43 | OT.IP.TRT ---
Current Diagnoses Unilateral primary osteoarthritis, right hip (10/18/17) Surgery Performed Operation Date: 10/18/17 09:45 Actual Procedures p Total Hip Arthroplasty(Right) - Giovanny Henderson MD Occupational Therapy Treatment Note M2 OT-IP Current Condition Start: 10/19/17 15:49 Freq: Status: Active Protocol: Document 10/19/17 15:50 [facility] (Rec: 10/19/17 15:59 [facility] [id number]) Occupational Therapy Current Condition Current Condition Treatment Diagnosis RTHA Diagnosis Onset Date 10/18/17 Post Operative Precautions Posterior Hip Precautions No Hip Flexion > 90 degrees No Hip Internal Rotation No Hip Adduction Other Precautions falls Weight Bearing Status Weight Bearing Status Weight Bear as Tolerated M3 OT- IP Subjective and Pain Start: 10/19/17 15:49 Freq: Status: Active Protocol: Document 10/22/17 09:35 [facility] (Rec: 10/22/17 09:43 [facility] [id number]) OT- Subjective Occupational Therapy Visit Type Type Treatment Note Visit Start Time 09:15 Visit Stop Time 09:35 Total Visit Minutes 20 Notes Pt agreeable to see OT, but not wanting to shower at this time. OT Pain Assessment Pain When Pain Assessed At Rest Pain Present Pain Present Denied Pain M4 OT- IP ADL's Start: 10/19/17 15:49 Freq: Status: Active Protocol: Document 10/22/17 09:35 [facility] (Rec: 10/22/17 09:43 [facility] [id number]) OT ADL-Dressing General Eval Upper Body Dressing Ability Standby Assistance Lower Body Dressing Ability Minimal Assistance Areas Needing Assistance Socks Assistive Devices Dressing Assistive Devices Varnish Melter Sock Aid Comments OT Dressing Comments Pt needing assist to straighten sock out after donning with sock aid. OT ADL-Toileting Comments OT Toileting Comments Educated to use urinal at home if needed and to stand for pericare needs, otherwise pt's able to assist. M6 OT- IP Functional Cognition Start: 10/19/17 15:49 Freq: Status: Active Protocol: Document 10/22/17 09:35 [facility] (Rec: 10/22/17 09:43 [facility] [id number]) Cognitive Factors Limiting Selfcare Function Cognitive Ability Level of Alertness Alert Patient Orientation Name Date Year Situation Attention Span Ability Capable of Focused Attention Capable of Sustained Attention Ability to Follow Commands Able to Follow Multi-Step Commands Safety Awareness Decreased Recall of Precautions Decreased Ability to Apply Precautions Problem Solving Ability Needs Assist to Identify Solutions M7 OT- IP Mobility and Balance Start: 10/19/17 15:49 Freq: Status: Active Protocol: Document 10/22/17 09:35 [facility] (Rec: 10/22/17 09:43 [facility] [id number]) OT- Bed Mobility Assessment Supine to Sit Supine to Sit Assist Standby Assistance Scooting Scooting to Edge of Bed Standby Assistance OT-Transfer Assessment Sit to and From Stand Sit to and from Stand Standby Assistance Transfers Transfer Ability Standby Assistance Technique Transfer Destination Chair Devices Transfer Assistive Devices Gait Belt Front Wheeled Walker Comments Mobility Comments Overall much improved and now sba and VC for safety especially to incorporate hip precautions during needs. OT- Gait Assessment Comments Gait Ability Comments Pt tends to abducted right leg out and not put too much wieght through right leg. OT- Balance Assessment Sitting Balance and Reactions Static Sitting Balance Ability Good Dynamic Sitting Balance Ability Good Standing Balance and Reactions Static Standing Balance Ability Fair Dynamic Standing Balance Ability Poor M9 OT- IP Assessment and Plan Start: 10/19/17 15:49 Freq: Status: Active Protocol: Document 10/22/17 09:35 [facility] (Rec: 10/22/17 09:43 [facility] [id number]) OT Summary Assessment and Plan Summary Progress Towards Goals Progressing Toward Goals Safe For Discharge Assessment Summary Pt will need assist home and especially reminders for hip precautions. Frequency of Treatment Frequency Of Treatment Once a Day Treatment Plan OT Treatment Plan ADL Training Functional Mobility Discharge Recommendations OT Discharge Recommendations Home with Assistance Home Health
--- NOTE | 2017-10-22 10:30 | CM.DPC ---
Discharge Plan cont'd, and D/C today: Met with patient who was working w/P.T. on stairs. States he is doing well and looking forward to going home today. He said amaury and ETELVINA are coming to pick him up at 11am, and he hopes all will be in order for his d/c at that time. Assured him that attending floor RN will go over d/c paperwork and Rx with him prior to leaving. Confirmed with him that [facility] will be providing PT and OT services after d/c and that this appears to be all set up. Then called his spouse Velma Rodriguez at home to review plan for pt to d/c home and have HH. She verified that HH is to start tomorrow, they have made an appt to come out, but Velma was unable to reach [facility] to ensure that HH is covered by them. She stated they cannot be reached over the holiday, and SN stated that likely if HH has already set up appt with them, they have verified insurance coverage prior to accepting pt; she can re-check with them. She requested [facility] phone #, and went to get paper/pen, and had a fall doing this. She stated, ???I fall all the time, but this time I hit my head really hard.??? This RN strongly encouraged her to call 911, but she declined. Assured her I would leave [facility] phone # with her spouse to take home. Then quickly informed the patient that his had fallen at home, and strongly suggested he call for help for her, 911 would be best. He had cell phone in hand and was quickly mobilizing to call for assistance for her, stating she is ???very stubborn??? about not wanting intervention, but he would try. Contacted: [place] at [facility]. She is not at office today, but will check on appts for this patient first thing in the morning on , stating that if they have already received appt and SOC call, that all is likely ready to go, but she will check. (F2F and HH order faxed to them previously; will be faxed again as f/u, along with discharge summary today). Plan: Home today at 11am with family, with HH to start tomorrow. Shana Puente RN
--- NOTE | 2017-10-22 10:56 | PC.NURSE ---
Dressing to right hip CDI
--- NOTE | 2017-10-22 11:00 | PC.NURSE ---
Addendum entered by Malgorzata Sterling R.N. 10/22/17 12:52: Pt has been taken by wheelchair to ER entrance with family. All paperwork and scripts given to pt. Original Note: Pt is preparing for dc home today. Was able to demonstrate excellent ability to give himself the lovenox shot. Waiting for surgeon to complete dc process. Family member will come in to take pt home.
--- NOTE | 2017-10-22 11:27 | PT.IPTN ---
Current Diagnoses Unilateral primary osteoarthritis, right hip (10/18/17) Surgery Performed Operation Date: 10/18/17 09:45 Actual Procedures p Total Hip Arthroplasty(Right) - Giovanny Henderson MD Physical Therapy Treatment Note M2 PT-IP Current Condition Start: 10/19/17 11:34 Freq: NEEDED Status: Active Protocol: Document 10/21/17 13:24 RCC (Rec: 10/21/17 13:53 RCC [id number]) Physical Therapy Current Condition Current Condition Evaluation Date 10/19/17 Treatment Diagnosis s/p R JEY; difficulty in walking Onset Date 10/18/17 Post Operative Precautions Posterior Hip Precautions No Hip Flexion > 90 degrees No Hip Internal Rotation No Hip Adduction Other Precautions falls Weight Bearing Status Weight Bearing Status Weight Bear as Tolerated M3 PT-IP Subjective Start: 10/19/17 11:34 Freq: NEEDED Status: Active Protocol: Document 10/22/17 09:40 CLB (Rec: 10/22/17 11:26 CLB [email or web address]) Subjective Physical Therapy Visit Type Type Treatment Note Visit Start Time 09:40 Visit Stop Time 10:20 Total Visit Minutes 40 Number of MILLER SUPERVISOR Visits 1 Physical Therapy Visit Comments Patient Comments Pt feeling ready to go home, he wants to go for a walk and is ready for stair training. Therapy Pain Assessment Pain Present Pain Present Denied Pain M4 PT-IP Mobility and Gait Start: 10/19/17 11:34 Freq: NEEDED Status: Active Protocol: Document 10/22/17 09:40 CLB (Rec: 10/22/17 11:26 CLB [email or web address]) PT-Transfer Assessment Sit to and From Stand Sit to and from Stand Contact Guard Assistance Equipment Transfer Assistive Device Gait Belt Front Wheeled Walker Transfers Transfer Destination Chair Transfer Technique after walk Transfer Ability Level of Assist Contact Guard Assistance Comments Mobility Comments Increased hip and knee flexion , ankle PF with toes/forefoot @ IC and throughout WB d/t prior injuries to RLE. Gait Assessment Gait Gait Assistance Required: Contact Guard Assist Distance (Feet) (feet) 120 Able to Maintain Weight Bearing Status Yes During Gait Assistive Devices Assistive Device Gait Belt Front Wheeled Walker Gait Deviations General Gait Pattern Antalgic Decreased Stride Length Decreased Feet Clearance Factors Limiting Gait Function Factors Limiting Gait Function Decreased Activity Tolerance Decreased Strength Poor Balance Comments Gait Comments Pt ambulated well with shoes on using UE strength on walker . Pt needed cues as to not walk to close to front of walker but overall has good safety awareness. He was able to put more weight on LE after a few ft. Stair Climbing Assessment Evaluation Level of Assist On Stairs Contact Guard Assistance Devices Stair Climbing Assistive Devices Front Wheel Walker Technique/Endurance Stair Climbing Direction Ascend and Descend Stair Climbing Technique Step to Step Number of Steps Climbed 3 Query Text: Stair Climbing Set # Repetitions (reps) 3 Comments Stair Climbing Comments Pt trialed three step stairs as well as platform step forward and backwards due to two steps entering hallway inside home w/o rails. 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 M7 PT-IP Assessment and Plan Start: 10/19/17 11:34 Freq: NEEDED Status: Active Protocol: Document 10/22/17 09:40 CLB (Rec: 10/22/17 11:26 CLB [email or web address]) PT Summary Assessment and Plan Summary Impairments ROM Strength Balance Bed Mobility Transfers Gait Activity Tolerance Progress Towards Goals Progressing Toward Goals Assessment Summary Pt ambulating with good safety awareness, CGA for sit-stand and successfully trialed stairs. Goals Bed Mobility Goal Contact Guard Assistance Transfer Goal Contact Guard Assistance Gait Goal Contact Guard Assistance Gait Distance 100 Other Goals up/down 2 steps without rails Frequency of Treatment Frequency Of Treatment Twice a Day Treatment Plan Physical Therapy Treatment Plan Bed Mobility Training Transfer Training Gait Training Therapeutic Exercise Balance Retraining Post Op Education Discharge Planning Hot or Cold Pack Neuromuscular Re-ed Coordination Retraining Manual Therapy Other Recommendations and Next Treatment Pt to d/c home with assist as Focus well at OT and PT Recommendations To Nursing Amount of Assist Needed 1 Person Assist Discharge Recommendations PT Discharge Recommendations Home with Assistance Home Health Equipment Needed for Home Before Pt stated his has one he Discharge can use and he has his mothers FWW also
--- NOTE | 2017-10-22 12:01 | P.PN_ITS ---
Exam Vital Signs (past 8 hours): Vital Signs - 8 hr 3 10/22/17 04:54 10/22/17 07:40 10/22/17 07:54 Temperature 97.3 F L Pulse Rate 74 82 82 Respiratory Rate 17 14 14 Blood Pressure 104/61 Pulse Oximetry 95 94 94 3 10/22/17 08:00 Temperature 98.1 F Pulse Rate 79 Respiratory Rate 16 Blood Pressure 107/71 Pulse Oximetry 93 Pulse Oximetry 93 Fraction of Inspired Oxygen 21 Oxygen Delivery Method Room Air Oxygen Flow Rate 0 Objective Labs Result Diagrams: 10/19/17 05:55 Assessment & Plan Plan: Plan: Patient is admitted after surgery. Patient has been stable and progressing with physical therapy. Patient is neurovascularly intact on exam. Patient has no signs or symptoms of DVT. Patient's dressing is clean dry and intact. Patient will be discharged today with home health. Quality VTE Deep Vein Thrombosis/Pulmonary Embolism Present on Admission: No
--- NOTE | 2017-11-01 14:21 | PM.DS.1 ---
History of Present Illness Chief complaint: [place] [id number] Discharge Providers Date of admission: 10/18/17 08:52 Consults: 10/17/17 14:56 Consult to Discharge Planning Routine Comment: 10/18/17 13:33 Consult to Respiratory Therapy Evaluate & Treat Comment: COPD pt has questions regarding inhaler use Physician Instructions: Evaluate and treat 10/18/17 14:32 Consult to Discharge Planning Routine Comment: Consult to Physical Therapy Evaluate & Treat Comment: Physician Instructions: victor m protocol 10/19/17 12:38 Consult to Occupational Therapy Evaluate & Treat Comment: Physician Instructions: Evaluate and treat 10/20/17 14:27 Consult to Home Health Routine Comment: Reason For Exam: home health 0T/PT at d/c. ok'd by Dr. Henderson Discharge provider: Fabrizio Rock PA-C Summary Discharge Diagnosis: Status post right total hip arthroplasty Hospital Course: Patient admitted to the hospital for right total hip arthroplasty. Patient consented to the same. Patient taken to the operating room underwent right total hip arthroplasty. Patient back in the room recovering well and are in stable condition. Patient general spinal anesthesia. Hospital stay was uneventful and was discharged home. Exam Vital Signs (past 8 hours): Pulse Oximetry 93 Fraction of Inspired Oxygen 21 Oxygen Delivery Method Room Air Oxygen Flow Rate 0 Objective Labs Result Diagrams: 10/19/17 05:55 Discharge Plan Discharge Plan Patient Disposition: Home Health Service Discharge comment: Keep dressing clean dry intact Hip precaution Follow up in 2 weeks Discharge Med Rec/Prescriptions Prescriptions: New hydrocodone-acetaminophen 5-325 mg tablet 2 tab PO Q4-6H PRN (Reason: pain) Qty: 60 RF: 0 Continue prednisone 20 mg Tablet 20 mg PO DAILY RF: 0 calcium carbonate [Calcium 600] 600 mg calcium (1,500 mg) Tablet 1,200 mg PO BID RF: 0 lorazepam 0.5 mg Tablet 0.5 mg PO BID PRN (Reason: Anxiety/depression) RF: 0 montelukast 10 mg Tablet 10 mg PO BEDTIME RF: 0 fluticasone 50 mcg/actuation [place],Suspension 1 - 2 spray INTRANASAL DAILY PRN (Reason: Nasal Congestion) RF: 0 cholecalciferol (vitamin D3) [Vitamin D3] 5,000 unit Tablet 5,000 unit PO BID RF: 0 venlafaxine 150 mg Capsule,Extended Release 24hr 150 mg PO DAILY RF: 0 tamsulosin 0.4 mg Capsule,Extended Release 24hr 0.4 mg PO BEDTIME RF: 0 albuterol sulfate [Ventolin HFA] 90 mcg/actuation Hfa Aerosol Inhaler 2 puff INHALATION Q4-6H PRN (Reason: copd) RF: 0 fluticasone-salmeterol [Advair Diskus] 500-50 mcg/dose Blister With Device 1 inh INHALATION BID RF: 0 oxycodone 15 mg PO Q4H RF: 0 Spiriva with HandiHaler 2 puff Inhalation QAM RF: 0 Provider Discharge Instructions Diet: Regular Wound Care Report to your healthcare provider any signs of infection, such as:: chills, fever, night sweats, increased pain and unusual drainage Visit Report/Discharge Packet Instructions: DI for Hip Replacement, How to Prevent Falls, Hydrocodone Combination Products, Enoxaparin Injection Visit Report Forms: Stroke Signs & Symptoms Discharge Data Attending Provider: Giovanny Henderson Admit Date/Time: 10/18/17 08:52 Discharges patient from system. Discharge Date/Time: 10/22/17 12:53 Quality VTE Deep Vein Thrombosis/Pulmonary Embolism Present on Admission: No
== END 2017-10-22 12:53 | disposition home health service (06) | DRG 470 ==
PROVIDERS: Admitting Provider Orthopaedic Surgery; Visit Provider Orthopaedic Surgery
PROC: 0SR90JZ Replacement of Right Hip Joint with Synthetic Substitute, Open Approach (ICD-10-PCS; CPT 27130; principal; 2017-10-18 09:45)
DX: M16.11 Unilateral primary osteoarthritis, right hip (principal); Z96.642 Presence of left artificial hip joint; Z87.891 Personal history of nicotine dependence
CPT/HCPCS: 36415; 72170; 85014; 85018; 94640; 94760; 94762; 97110; 97116; 97162; 97165; 97530; 97535; C1776; C9290; J0690; J1170; J1650; J2250; J2274; J2405; J2704; J3010

== ENCOUNTER → 2021-02-12 09:38 | Outpatient (CLI) | payer OTHER, SELFPAY ==
[2017-10-18 11:07] VITALS: BMI 19.1
--- NOTE | 2021-02-12 09:41 | DI.MRI.S_ITS ---
PROCEDURE: MR LUMBAR SPINE WO CON INDICATIONS: Chronic progressive low back pain TECHNIQUE: Noncontrast sagittal T1 spin echo and T2 fast echo, sagittal STIR, axial T1 and T2 fast spin echo through the lumbar spine. In cases with scoliosis, additional coronal T2 fast spin echo may be performed. COMPARISON: [facility], MR, MR LUMBAR SPINE WO CON, 04/27/2016, 17:10. [facility], CR, XR LUMBAR SPINE WITH FLEXION EXTENSION 5 VIEWS, 12/14/2020, 14:47. FINDINGS: Image quality: Excellent. Alignment and Curvature: There is trace retrolisthesis. Bone Marrow: Marrow is of normal overall signal. No acute vertebral body compression fractures. Spinal Cord: Conus medullaris terminates at the T12 level. Visualized cord demonstrates normal signal and size. Paraspinous Soft Tissues: No paravertebral masses. There is a focus increased T2 signal within the right iliac bone seen on the last axial image, series 5, image 37. It is not included within the field of view on sagittal images. Discs: Pyxz-[id number]-[id number] desiccation is present throughout the lumbar spine. L1-L2: No disc bulge or spinal stenosis. Minimal left foraminal narrowing, slightly progressive. Facet and ligamentum flavum hypertrophy are present. L2-L3: Minimal disc bulge without spinal stenosis or foraminal narrowing. Facet and ligamentum flavum hypertrophy are present. Minimal epidural lipomatosis. Minimal interval progression. L3-L4: Minimal disc bulge without spinal stenosis. Minimal left and moderate right foraminal narrowing with facet and ligamentum flavum hypertrophy. No interval change. L4-L5: Mild disc bulge with mild spinal stenosis. Moderate to severe left and moderate right foraminal narrowing with facet and ligamentum flavum hypertrophy. Mild interval progression of facet and ligamentum flavum hypertrophy. As previously noted, there is prominent degenerative signal change in cystic formation involving the L4 and L5 spinous processes. L5-S1: Minimal disc bulge without spinal stenosis. [id number]-bk-[id number] bilateral foraminal narrowing, slightly progressive compared to prior exam. IMPRESSION: 1. Multilevel degenerative changes with areas of minimal interval progression as above. 2. 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 Dictated by: Milly Kowalski M.D. on 02/14/2021 at 9:14 Approved by: Milly Kowalski M.D. on 02/14/2021 at 9:23
== END ==
PROVIDERS: PCP Nurse Practitioner Family; Referring Provider Physical Medicine & Rehabilitation; Visit Provider Physical Medicine & Rehabilitation
DX: M47.816 Spondylosis without myelopathy or radiculopathy, lumbar region (principal); M43.16 Spondylolisthesis, lumbar region
CPT/HCPCS: 72148

== ENCOUNTER 2021-03-03 13:58 | Outpatient (CLI) | payer OTHER, SELFPAY ==
[2021-02-23 13:55] VITALS: BMI 19.1
[2021-03-03] VITALS (9 sets, daily range): BP systolic 147–184; BP diastolic 78–105; PULSE 71–79; RESP 15–20; TEMP 36.2; O2SAT 94–97
--- NOTE | 2021-03-03 14:00 | DI.RAD.S_ITS ---
PROCEDURE: PAIN L/S FACET INJ/BLK 1ST VANESA COMPARISON: [facility], CR, XR LUMBAR SPINE WITH FLEXION EXTENSION 5 VIEWS, 12/14/2020, 14:47. INDICATIONS: SPONDYLOSIS FINDINGS: Fluoroscopic spot filming was performed to verify placement of spinal needles on both sides at the L4, L5, and S1 levels, as labeled on the films. Appropriate location of the needle tips was confirmed by injection of iodinated contrast. IMPRESSION: Intraprocedural examination within normal limits. Dictated by: Esteban Langley M.D. on 03/03/2021 at 16:40 Approved by: Esteban Langley M.D. on 03/03/2021 at 16:40
[2021-03-03] MEDS: MIDAZOLAM 5 MG/5 ML VIAL IV (15:05)
[2021-03-03] MEDS: fentaNYL 100 MCG/2 ML INJ 50 MCG IV (15:05)
[2021-03-03] MEDS: BUPIVACAINE 0.5% (PF) VIAL 5 ML INJ (15:11)
[2021-03-03] MEDS: IOPAMIDOL 15 ML VIAL 3 ML INJ (15:11)
[2021-03-03] MEDS: LIDOCAINE 1% 20 ML 10 ML INJ (15:12)
--- NOTE | 2021-03-03 15:30 | PM.PROC.IR.1 ---
Date/Time/Diagnoses Date of procedure: 03/03/21 Time of procedure: 15:30 Pre-procedure diagnosis: 1. FACET ARTHROPATHY Post-procedure diagnosis: same Procedure Notes Procedure: 1. BILATERAL- L4, L5 and S1 DIAGNOSTIC MB BLOCKS with LA Anesthetic Indications: Tima is referred by ONEIL Milan for treatment of Bilateral Axial LBP. Physician: Nomi Arcos Total Fluoroscopy time (seconds): 9 Total sedation minutes: 18 Complications: none Procedure in detail & Post-procedure care: DESCRIPTION OF PROCEDURE Fluoroscopically guided, contrast-controlled bilateral L4, L5 and S1 medial branch blocks with 0.5cc of 0.5% Marcaine. Following review of allergy and review of potential side effects and complications, including, but not necessarily limited to, infection, allergic reaction, local tissue breakdown, nerve injury, paralysis, stroke and possible , the patient indicated that the patient understood and agreed to proceed. An informed consent document was signed by the patient, witnessed by a nurse, and placed in the patient's chart. After review of previous anaesthesic history and IV conscious sedation the patient was deemed safe to proceed with today's procedure with IV conscious sedation as ASA class II designation. Safety time-out was performed to confirm patient ID, procedure to be performed and site of procedure. IV sedation was accomplished with a combination of 2mg of Versed and 50mcg of Fentanyl was administered by the RN after DO order, titrated to patient comfort during the course of the procedure while the patient remained responsive to all verbal commands In the prone position, following sterile prep and drape of the lumbar region, the right L4, L5 and S1 anatomical location of the medial branch of the dorsal ramus was identified fluoroscopically. Subsequently an anesthetic skin wheal using 1% lidocaine solution was initiated at each of the anatomical spots. Subsequently then a 22-gauge 3.5-inch spinal needle was atraumatically introduced and advanced under fluoroscopic guidance at each of the corresponding sites at the right L4, L5 and S1 MB. After negative aspiration, 0.2cc of Isovue 200 was injected, confirming placement without vascular or intrathecal uptake. Subsequently then 0.5cc of 0.5% Marcaine solution was injected at each of the corresponding sites at the right L4, L5 and S1 medial branch locations. The identical procedure was replicated on the left. The patient tolerated the procedure well without signs or symptoms of complications prior to transfer to the recovery area continued monitoring without incident. Post-procedure, the patient was monitored initiating provocative activities to measure the amount of relief from block of the facetogenic pain. The patient reported a VAS of 7 prior to the procedure and a post-procedure VAS of 1. It has been a pleasure to assist in the diagnostic and therapeutic care of your patient. POST OP INSTRUCTIONS The patient was provided with a Pain Log to complete over the next several hours and subsequent days prior to the patient's follow up with the ordering physician. If the patient has show design supervisor relief to the solution applied, then they may be a candidate for medial branch rhizotomy. The patient is aware, was provided, once again, with a Pain Log and will follow up with the referring physician for review and clinical correlation
== END 2021-03-03 15:44 | disposition home or self-care (01) ==
PROVIDERS: PCP Nurse Practitioner Family; Referring Provider Physical Medicine & Rehabilitation; Visit Provider Physical Medicine & Rehabilitation
DX: M47.816 Spondylosis without myelopathy or radiculopathy, lumbar region (principal); M47.817 Spondylosis without myelopathy or radiculopathy, lumbosacral region; M54.59 Other low back pain
CPT/HCPCS: 64493; 64494; 99152; J2250; J3010

== ENCOUNTER → 2021-04-04 11:46 | Outpatient (CLI) | payer OTHER, SELFPAY ==
[2021-02-23 13:55] VITALS: BMI 19.1
[2021-04-04 13:16] LABS: COVID19 -Nasal RAPID Negative (Negative)
== END ==
PROVIDERS: PCP Nurse Practitioner Family; Referring Provider Physical Medicine & Rehabilitation; Visit Provider Physical Medicine & Rehabilitation
DX: Z20.822 Contact with and (suspected) exposure to COVID-19 (principal)
CPT/HCPCS: 87635; C9803

== ENCOUNTER 2021-04-05 12:21 | Outpatient (CLI) | payer OTHER, SELFPAY ==
[2021-02-23 13:55] VITALS: BMI 19.1
[2021-04-05] VITALS (8 sets, daily range): BP systolic 120–158; BP diastolic 75–98; PULSE 75–83; RESP 14–22; TEMP 36.1; O2SAT 94–97
--- NOTE | 2021-04-05 12:22 | DI.RAD.S_ITS ---
PROCEDURE: PAIN L/S FACET INJ/BLK 1ST VANESA COMPARISON: [facility], , PAIN L/S FACET INJ/BLK 1ST VANESA, 03/03/2021, 15:11. INDICATIONS: SPONDYLOSIS FINDINGS: Fluoroscopic spot filming was performed to verify placement of spinal needles on both sides at the L4, L5, and S1 levels, as labeled on the films. Appropriate location of the needle tips was confirmed by injection of iodinated contrast. IMPRESSION: Intraprocedural examination within normal limits. Dictated by: Esteban Langley M.D. on 04/05/2021 at 13:37 Approved by: Esteban Langley M.D. on 04/05/2021 at 13:38
[2021-04-05] MEDS: MIDAZOLAM 5 MG/5 ML VIAL IV (13:46)
[2021-04-05] MEDS: fentaNYL 100 MCG/2 ML INJ 50 MCG IV (13:46)
[2021-04-05] MEDS: IOPAMIDOL 15 ML VIAL 3 ML INJ (13:53)
[2021-04-05] MEDS: LIDOCAINE 1% 20 ML 10 ML INJ (13:54)
[2021-04-05] MEDS: BUPIVACAINE 0.5% (PF) VIAL 5 ML INJ (13:54)
--- NOTE | 2021-04-05 14:07 | PM.PROC.IR.1 ---
Date/Time/Diagnoses Date of procedure: 04/05/21 Time of procedure: 14:07 Pre-procedure diagnosis: 1. FACET ARTHROPATHY Post-procedure diagnosis: same Procedure Notes Procedure: 1. BILATERAL- L4, L5 and S1 DIAGNOSTIC MB BLOCKS with LA Anesthetic Indications: Tima is referred by ONEIL Milan for treatment of Bilateral Axial LBP. Physician: Nomi Arcos Total Fluoroscopy time (seconds): 17 Total sedation minutes: 16 Complications: none Procedure in detail & Post-procedure care: DESCRIPTION OF PROCEDURE Fluoroscopically guided, contrast-controlled bilateral L4, L5 and S1 medial branch blocks with 0.5cc of 0.5% Marcaine. Following review of allergy and review of potential side effects and complications, including, but not necessarily limited to, infection, allergic reaction, local tissue breakdown, nerve injury, paralysis, stroke and possible , the patient indicated that the patient understood and agreed to proceed. An informed consent document was signed by the patient, witnessed by a nurse, and placed in the patient's chart. After review of previous anaesthesic history and IV conscious sedation the patient was deemed safe to proceed with today's procedure with IV conscious sedation as ASA class II designation. Safety time-out was performed to confirm patient ID, procedure to be performed and site of procedure. IV sedation was accomplished with a combination of 2mg of Versed and 50mcg of Fentanyl was administered by the RN after DO order, titrated to patient comfort during the course of the procedure while the patient remained responsive to all verbal commands In the prone position, following sterile prep and drape of the lumbar region, the right L4, L5 and S1 anatomical location of the medial branch of the dorsal ramus was identified fluoroscopically. Subsequently an anesthetic skin wheal using 1% lidocaine solution was initiated at each of the anatomical spots. Subsequently then a 25-gauge 3.5-inch spinal needle was atraumatically introduced and advanced under fluoroscopic guidance at each of the corresponding sites at the right L4, L5 and S1 MB. After negative aspiration, 0.2cc of Isovue 200 was injected, confirming placement without vascular or intrathecal uptake. Subsequently then 0.5cc of 0.5% Marcaine solution was injected at each of the corresponding sites at the right L4, L5 and S1 medial branch locations. The identical procedure was replicated on the left. The patient tolerated the procedure well without signs or symptoms of complications prior to transfer to the recovery area continued monitoring without incident. Post-procedure, the patient was monitored initiating provocative activities to measure the amount of relief from block of the facetogenic pain. The patient reported a VAS of 7 prior to the procedure and a post-procedure VAS of 1. It has been a pleasure to assist in the diagnostic and therapeutic care of your patient. POST OP INSTRUCTIONS The patient was provided with a Pain Log to complete over the next several hours and subsequent days prior to the patient's follow up with the ordering physician. If the patient has sales donor recruitment representative relief to the solution applied, then they may be a candidate for medial branch rhizotomy. The patient is aware, was provided, once again, with a Pain Log and will follow up with the referring physician for review and clinical correlation
== END 2021-04-05 14:23 | disposition home or self-care (01) ==
LOC: RAD 12:21
PROVIDERS: PCP Nurse Practitioner Family; Referring Provider Physical Medicine & Rehabilitation; Visit Provider Physical Medicine & Rehabilitation
DX: M47.816 Spondylosis without myelopathy or radiculopathy, lumbar region (principal); M54.59 Other low back pain; M47.817 Spondylosis without myelopathy or radiculopathy, lumbosacral region
CPT/HCPCS: 64493; 64494; 99152; J2250; J3010

== ENCOUNTER 2021-06-09 10:26 | Outpatient (CLI) | payer OTHER, SELFPAY ==
[2021-02-23 13:55] VITALS: BMI 19.1
[2021-06-09] VITALS (13 sets, daily range): BP systolic 119–186; BP diastolic 71–94; PULSE 71–80; RESP 12–20; TEMP 36.1; O2SAT 95–97
--- NOTE | 2021-06-09 10:30 | DI.RAD.S_ITS ---
PROCEDURE: PAIN L/S MED/LAT N RFA BILAT INDICATIONS: SPONDYLOSIS COMPARISON: [facility], , PAIN L/S FACET INJ/BLK 1ST VANESA, 04/05/2021, 14:48. FINDINGS: Fluoroscopic spot filming was performed to verify placement of spinal needles on both sides at the L4, L5, and S1 levels, as labeled on the films. IMPRESSION: Intraprocedural examination within normal limits. Dictated by: Esteban Langley M.D. on 06/09/2021 at 11:19 Approved by: Esteban Langley M.D. on 06/09/2021 at 11:20
[2021-06-09] MEDS: fentaNYL 100 MCG/2 ML INJ 50 MCG IV (11:08)
[2021-06-09] MEDS: LIDOCAINE 1% 20 ML INJ (11:13)
[2021-06-09] MEDS: BUPIVACAINE 0.5% (PF) VIAL 5 ML INJ (11:13)
[2021-06-09] MEDS: MIDAZOLAM 5 MG/5 ML VIAL IV (11:23)
--- NOTE | 2021-06-09 11:52 | P.PCN_ITS ---
Date/Time/Diagnoses Date of procedure: 06/09/21 Time of procedure: 11:52 Pre-procedure diagnosis: 1. RECALCITRANT FACET ARTHROPATHY Post-procedure diagnosis: same Procedure Notes Procedure: 1. BILATERAL L4 AND L5 MEDIAL BRANCH RADIOFREQUENCY NEUROTOMY AND S1 DORSAL RAMUS BRANCH RADIOFREQUENCY NEUROTOMY Indications: Tima is referred by ONEIL Milan for treatment of facet arthropathy. Physician: Nomi Arcos Total Fluoroscopy time (seconds): 19 Total sedation minutes: 34 Complications: none Procedure in detail & Post-procedure care: DESCRIPTION OF PROCEDURE Bilateral L4 and L5 medial branch radiofrequency neurotomy and bilateral S1 dorsal ramus radiofrequency neurotomy under fluoroscopy with conscious sedation. The patient is well known to this clinic having undergone previous facet injections with good but temporary relief. The patient has experienced appropriate, concordant relief with previous facet and median branch blocks but the patient's pain has been recalcitrant to further conservative measures. Therefore, based upon the patient's relief and persistent symptoms, the patient is considered an appropriate candidate for facet rhizotomy. All of the patient's questions regarding the risks versus benefits of the procedure, including, but not limited to, bleeding, infection, temporary as well as lasting nerve injury, paralysis, stroke, and , as well treatment alternatives were answered to satisfaction. After obtaining informed consent, denial of pertinent drug allergies, as well as being made aware of the potential risks of bleeding, infection, spinal cord trauma, paralysis, temporary and permanent nerve damage, seizure, stroke, and possible , the patient was brought to the fluoroscopy suite and positioned prone on the fluoroscopy table. The lumbar region was prepped with Betadine and covered with a fenestrated drape in the usual sterile fashion. Appropriate monitors applied including pulse oximeter, pulse, and blood pressure for regular monitoring throughout the procedure. After review of previous anaesthesic history and IV conscious sedation the patient was deemed safe to proceed with today's procedure with IV conscious sedation as ASA class II designation. Safety time-out was performed to confirm patient ID, procedure to be performed and site of procedure. IV sedation was accomplished with a combination of 3mg of Versed and 50mcg of Fentanyl administered by the RN after DO order, titrated to patient comfort during the course of the procedure while the patient remained responsive to all verbal commands. After local infiltration using 1% lidocaine, under fluoroscopic guidance, a 10- cm RF insulated needle with a 10-mm active tip was positioned parallel to the junction of the right sacral ala and the superior articulating process where the S1 dorsal ramus resides. Needle placement was confirmed with motor stimulation of .5v on the right which produced local stimulation without radicular component. The stimulation was then increased to 2v with, once again, only local multifidus stimulation without radicular component. The needle was then removed and the identical procedure was performed along the length of the right L5 medial branch with motor stimulation at .7v on the right. The identical procedure was once again performed along the length of the right L4 medial branch with motor stimulation of .5v on the right. The medial branches were then anesthetised with 0.5% Marcaine. This was then followed by two discreet lesions performed at 80 degrees Celsius for 90 seconds each. The identical procedure was repeated on the left. The patient tolerated the procedure well without signs or symptoms of complications prior to transfer to the recovery area continued monitoring without incident. The patient was then transferred to the recovery area where they were observed for an appropriate period of time after the injection. The patient reported a VAS score of 9 prior to the procedure and a post-procedure VAS of 0. POST OP INSTRUCTIONS The patient was provided a Pain Log to continue to record the patient's response to the target-specific procedure prior to the patient's follow-up visit with the referring physician. Additionally, specific post-injection care instructions and a contact number to our office were provided if concerns arise regarding possible complications associated with the procedure are suspected.
== END 2021-06-09 12:09 | disposition home or self-care (01) ==
LOC: RAD 10:29
PROVIDERS: PCP Nurse Practitioner Family; Referring Provider Physical Medicine & Rehabilitation; Visit Provider Physical Medicine & Rehabilitation
DX: M47.816 Spondylosis without myelopathy or radiculopathy, lumbar region (principal); M47.817 Spondylosis without myelopathy or radiculopathy, lumbosacral region
CPT/HCPCS: 64635; 64636; 99152; 99153; J2250; J3010

== ENCOUNTER → 2021-08-29 14:26 | Outpatient (CLI) | payer OTHER, SELFPAY ==
[2021-02-23 13:55] VITALS: BMI 19.1
[2021-08-29 16:03] LABS: COVID19 -Nasal RAPID Negative (Negative)
== END ==
PROVIDERS: PCP Nurse Practitioner Family; Visit Provider Physical Medicine & Rehabilitation
DX: Z20.822 Contact with and (suspected) exposure to COVID-19 (principal)
CPT/HCPCS: 87635; C9803

== ENCOUNTER 2021-09-01 07:40 | Outpatient (CLI) | payer OTHER, SELFPAY ==
[2021-02-23 13:55] VITALS: BMI 19.1
[2021-09-01] VITALS (8 sets, daily range): BP systolic 106–148; BP diastolic 53–124; PULSE 85–99; RESP 14–26; TEMP 36.3; O2SAT 93–98
--- NOTE | 2021-09-01 07:45 | DI.RAD.S_ITS ---
PROCEDURE: PAIN L/S TRANSFORAM INJECT VANESA COMPARISON: [facility], XA, PAIN L/S FACET INJ/BLK 1ST VANESA, 04/05/2021, 14:48. [facility], XA, PAIN L/S MED/LAT N RFA BILAT, 06/09/2021, 12:13. INDICATIONS: SPONDYLOSIS FINDINGS: Fluoroscopic spot filming was performed to verify placement of spinal needles on both sides at the L4-L5 level, as labeled on the films. Appropriate location of the needle tips was confirmed by injection of iodinated contrast. IMPRESSION: Intraprocedural examination demonstrating appropriate positions of the needles. Dictated by: Esteban Langley M.D. on 09/01/2021 at 8:48 Approved by: Esteban Langley M.D. on 09/01/2021 at 8:49
[2021-09-01] MEDS: MIDAZOLAM 2 MG/2 ML VIAL (08:20)
[2021-09-01] MEDS: BUPIVACAINE 0.25% (PF) VIAL 30 ML (08:27)
[2021-09-01] MEDS: BETAMETHASONE 30 MG/5 ML MDV (08:28)
[2021-09-01] MEDS: IOPAMIDOL 15 ML VIAL 3 ML INJ (08:28)
[2021-09-01] MEDS: DEXAMETHASONE 10 MG/ML VIAL 20 MG INJ (08:29)
--- NOTE | 2021-09-01 08:44 | PM.PROC.IR.1 ---
Date/Time/Diagnoses Date of procedure: 09/01/21 Time of procedure: 08:44 Pre-procedure diagnosis: 1. FORAMINAL STENOSIS WITH LE SYMPTOMS Procedure Notes Procedure: 1. FLUOROSCOPICALLY GUIDED CONTRAST CONTROLLED TRANSFORAMINAL EPIDURAL STEROID INJECTION - BILATERAL L4/5 TFESI Indications: Tima is referred by Kayli RIGGS for treatment of Foraminal Stenosis with bilateral LE Symptoms Physician: Nomi Arcos Total Fluoroscopy time (seconds): 17 Total sedation minutes: 18 Complications: none Procedure in detail & Post-procedure care: FINDINGS Foraminal Nerve Root Compression secondary to disc disease and facet hypertrophy DESCRIPTION OF PROCEDURE Following review of allergy and review of potential side effects and complications, including, but not necessarily limited to, infection, allergic reaction, local tissue breakdown, stroke, temporary or permanent nerve injury, paralysis, and possible , the patient indicated that the patient understood and agreed to proceed. An informed consent document was signed by the patient, witnessed by a nurse, and placed in the patient's chart. Additionally, other treatment options including medications, modalities, and physical therapy were reviewed with the patient. After review of previous anaesthesic history and IV conscious sedation the patient was deemed safe to proceed with today?s procedure with IV conscious sedation as ASA class II designation. Safety time-out was performed to confirm patient ID, procedure to be performed and site of procedure. IV sedation was accomplished with a combination of 2mg of Versed was administered by the RN after DO order, titrated to patient comfort during the course of the procedure while the patient remained responsive to all verbal commands In the prone position following sterile prep and drape of the lumbar region, the right L4/5 posterior neuroforamen was identified fluoroscopically. The skin was anesthetized via a 25-gauge 1.5-inch needle with 1% lidocaine solution. At this point, a 25-gauge 3.5-inch spinal needle was atraumatically introduced and advanced under fluoroscopic guidance through the posterior right L4/5 neuroforamen to approximately the anterior aspect of the canal. Depth was confirmed on lateral view. Following negative aspiration, injection of approximately 1.5cc of Isovue 200 under live fluoroscopy in the AP view confirmed excellent flow along the nerve root, into the epidural space without vascular or intrathecal uptake observed Radiological data, including multiple fluoroscopic views of the lumbosacral spine, reveal a spinal needle at the right L4/5 posterior neuroforamen. Subsequent views show flow of contrast material flowing superiorly and inferiorly along the nerve root confirming epidural flow. Subsequently, a test dose of 1.5cc of 1% lidocaine solution was administered and patient was observed for two minutes for signs or symptoms of complications, including abdominal pain, shortness of breath, bilateral upper or lower extremity weakness, nausea and vomiting, prior to steroid injection. At this point, a total of 3cc or 20mg of dexamethasone and 6mg betamethasone was injected without incident. Attention was then refocused to the left L4/5 level where the identical procedure was replicated. The procedure tolerated the procedure well without signs or symptoms of complications prior to transfer to the recovery area continued monitoring without incident. The patient was then transferred to the recovery area where they were observed for an appropriate time after the injection. The patient reported a VAS score of 7 prior to the procedure and a post-procedure VAS of 0. POST OP INSTRUCTIONS The patient was provided a Pain Log to continue to record their response to the target-specific procedure prior to follow-up visit with their referring physician. Additionally, specific post-injection care instructions and a contact number to our office were provided if concerns arise regarding possible complications associated with the procedure are suspected.
== END 2021-09-01 09:10 | disposition home or self-care (01) ==
LOC: RAD 07:42
PROVIDERS: PCP Nurse Practitioner Family; Referring Provider Physical Medicine & Rehabilitation; Visit Provider Physical Medicine & Rehabilitation
DX: M48.061 Spinal stenosis, lumbar region without neurogenic claudication (principal); M51.16 Intervertebral disc disorders with radiculopathy, lumbar region
CPT/HCPCS: 64483; 99152; J0702; J1100; J2250; J3010

== ENCOUNTER 2022-07-17 10:47 | Inpatient (IN) | payer OTHER, SELFPAY ==
[2021-02-23 13:55] VITALS: BMI 19.1
[2022-07-13 10:47] VITALS: BMI 27.1
[2022-07-17] VITALS (10 sets, daily range): BP systolic 90–166; BP diastolic 59–97; PULSE 84–97; RESP 15–20; TEMP 36.1–36.8; O2SAT 91–97; BMI 26.1
[2022-07-17 11:34] LABS: COVID19 -Nasal RAPID Negative (Negative)
[2022-07-17] MEDS: ONDANSETRON 4 MG/2 ML INJ IV (11:44)
[2022-07-17] MEDS: LACTATED RINGERS 1,000 ML 42 ML IV ×2 (11:45→13:18)
--- NOTE | 2022-07-17 12:32 | PM.PREOP ---
Pre-operative Note COVID-19 COVID-19 status: Negative Result date/Date tested (Pos, Neg/Pending): 07/16/22 Criteria for continued procedure: Expected advancement of disease process, Possibility delay results in more complex future surgery or treatment, Increased loss of function, Continuing or worsening of significant or severe pain, Deterioration of the patient's condition or overall health and Delay expected to result in less-positive ultimate med/surg outcome Interval Note History & Physical reviewed/Exam performed by Physician: Yes Changes to H&P: No
[2022-07-17] MEDS: CEFAZOLIN 2 GM/100 ML PREMIX 100 ML IV ×2 (12:50→20:29)
--- NOTE | 2022-07-17 13:06 | SUR.OPER ---
Prone on spine table, head in foam head support, padded chest and pelvic supports, gel pad at knees, lower legs supported by pillows; nipples, genitalia and toes free of pressure, arms secured on foam padded arm boards at <90 degrees abduction. Tape over blanket at thigh secured to table. Pt positioned per direction and supervision of Dr Day.
[2022-07-17] MEDS: BUPIVACAINE LIPOSOME 266 MG/20 ML VIAL INJ (13:11)
[2022-07-17] MEDS: BUPIVACAINE 0.5% W/ EPI (PF) 30 ML VIAL INJ (13:11)
--- NOTE | 2022-07-17 14:51 | DI.RAD.S_ITS ---
PROCEDURE: XR LUMBAR SPINE 2-3V INDICATIONS: L4-5 TLIF TECHNIQUE: 2 views of the lumbar spine were acquired. COMPARISON: None. FINDINGS: Bones: Posterior and interbody surgical fusion at L4-5, without hardware complication. Soft tissues: Overlying bowel gas pattern is normal. IMPRESSION: Posterior and interbody surgical fusion at L4-5, without hardware complication. Dictated by: Bhanu Bradley M.D. on 07/17/2022 at 15:23 Approved by: Bhanu Bradley M.D. on 07/17/2022 at 15:24
--- NOTE | 2022-07-17 15:01 | P.OP_ITS ---
Operative Date/Time/Diagnoses Date of procedure: 07/17/22 Time of procedure: 12:45 Pre-op diagnosis: 1. L4-5 spinal stenosis 2. L4-5 spondylosis with radiculopathy Post-op diagnosis: same Procedure & Clinicians Procedure: 1. L4-5 Postero-lateral and posterior interbody fusion 2. L4-5 interbody cage placement. 3. L4-5 decompressive laminectomy with bilateral facetecomies 4. L4-5 Posterior non-segmental instrumentation 5. [place] of bone marrow from iliac crest 6. Utilization of microsurgical technique and operating microscope Same procedure as scheduled: Yes Indications: Patient has been having chronic back pain and worsening lumbar radiculopathy. Patient failed multiple conservative management with worsening pain weakness and numbness in his lower extremity. Patient has been having difficulty performing activity of daily living. After discussing risks benefits of treatment options, patient elected proceed with surgery. Surgeon: Jaden Day Director Of Event Management: Pamela Collazo Click Yes if Unassisted: No Anesthesia Type: General Operative Notes Closure Type: primary Specimen(s): none sent Prosthetic devices, grafts, tissues, transplants, or devices: Globus revolve screws, Rise cage Estimated Blood Loss (mL): 50 Blood products transfused: none Procedure in detail: Patient was seen in the preoperative area. Risks and benefits of the surgery was discussed with the patient. Informed consent was obtained from the patient and placed in the chart. Surgical site was marked. Patient was taken to the operative room. General anesthesia was administered. Prophylactic antibiotic was given to the patient less than 30 min before the incision was made. Patient was placed into a prone position on the Patrick table. Patient's back was then prepped and draped in the sterile fashion. Time-out was performed at this time. Using AP and lateral C-arm imaging the interval between L4-5 was identified and marked on patient's back. A 2 inch incision 2 in from midline was made on the left side first. The fascia was incised in line with skin incision. Globus MARS retractors was placed inside the incision and docked onto the L4-5 lamina. Using microsurgical technique and operating microscope, a L4 laminectomy and L4- 5 facetectomy was performed using a Kerrison rongeur. The disc space at L4-5 was identified. And a total diskectomy was performed at L4-5 level. The endplates were decorticated using a rasp and shaver. The total diskectomy and decortication was performed at L4-5 level in order to to accomplish a L4-5 fusion. The local bone from the laminectomy and facetectomy was saved for local bone grafting. After the total diskectomy and decortication was completed, Trifecta bone graft material was combined with local bone that was harvested earlier. At this time, a separate skin is incision was made over the iliac crest. A Jamshidi needle was inserted into the iliac crest through a separate skin incision. 5 cc of bone marrow aspiration was obtained through the separate skin incision using a Jamshidi needle from the iliac crest. The bone marrow aspiration was combined with local bone and the Trifecta bone grafting material. The bone grafting material was placed into the L4-5 interbody space along with a expandable cage. The cage was expanded to its maximum height using the torque limiting screwdriver. At this time a mirror image incision was made on the right side. The fascia was incised in line with the skin incision. Globus MARS retractor was inserted and docked onto the L4-5 posterolateral gutter. Using the power drill, posterior- lateral decortication was performed at L4-5 level until bleeding cortical bone was identified. The remaining bone grafting material was placed into the L4-5 posterior lateral gutter he order to accomplish posterolateral fusion at the L4- 5 level. Using the double C-arm technique, pedicle screws were placed into the L4-5 pedicles bilaterally. This was done by placing the Jamshidi needle into the pedicles, then placing the guidewires over the Jamshidi needle, and finally placing the cannulated screws over the guidewires bilaterally. After the pedicle screws were placed, 2 titanium rods was locked into the heads of the pedicle screws using locking caps and torque limiting screwdriver. After all the hardware was placed, and confirmed with AP and lateral C-arm imaging, the wound was then irrigated with sterile normal saline and packed with Ray-Mello gauze for 3 min to accomplish hemostasis. After the gauze was removed the deep fascia was closed with #1 Vicryl suture. The subcutaneous layer was closed with 2-0 Vicryl. The skin was closed with skin lexi. Patient tolerated the procedure well. There were no complications. Complications: none Post-operative Condition: stable Disposition: PACU Plan for aftercare: Admit to inpatient hospital
[2022-07-17] MEDS: OXYCODONE IR 5 MG TABLET PO (15:26)
[2022-07-17] MEDS: ACETAMINOPHEN 325 MG TABLET PO (15:26)
[2022-07-17] MEDS: SODIUM CHLORIDE 0.9% 1,000 ML 100 ML IV (16:40)
[2022-07-17] MEDS: HYDROMORPHONE 0.5 MG INJ IV ×3 (16:41→23:20)
[2022-07-17] MEDS: hydrOXYzine pamoate 25 MG CAPSULE PO ×2 (18:01→23:20)
[2022-07-17] MEDS: OXYCODONE IR 10 MG TABLET PO (18:02)
--- NOTE | 2022-07-17 19:30 | PC.NURSE ---
Pt arrived from PACU at 1555 this afternoon, A&OX4, 1 LNC. Productive cough, coughing up thick sputum. He reports pain to back 6-7/10 this evening. SBP slightly elevated this evening. Pt denies n/v but declined to eat dinner this evening. IVF, NS running at 100ml/hr. Pt is able to void this evenin 500cc clear yellow urine. Educated on log rolling. SCD's on, bed alarm on, call light in reach, continuous monitoring.
[2022-07-17] MEDS: ATORVASTATIN 20 MG TABLET PO (20:29)
[2022-07-17] MEDS: TAMSULOSIN 0.4 MG CAPSULE 0.8 MG PO (20:29)
[2022-07-17] MEDS: DOCUSATE 100 MG CAPSULE PO (20:29)
[2022-07-17] MEDS: SENNOSIDES 8.6 MG TABLET 17.2 MG PO (20:30)
[2022-07-17] MEDS: MONTELUKAST 10 MG TABLET PO (20:30)
[2022-07-18] VITALS (8 sets, daily range): BP systolic 110–161; BP diastolic 73–87; PULSE 67–94; RESP 15–18; TEMP 36.5–37.3; O2SAT 93–97
[2022-07-18] MEDS: SODIUM CHLORIDE 0.9% 1,000 ML 100 ML IV (03:06)
[2022-07-18] MEDS: OXYCODONE IR 10 MG TABLET PO ×4 (03:06→18:12)
[2022-07-18] MEDS: hydrOXYzine pamoate 25 MG CAPSULE PO ×3 (03:06→17:20)
[2022-07-18 04:55] LABS: Hematocrit 36.3 % (41-53); Hemoglobin 12.3 g/dL (13.5-17.5)
[2022-07-18] MEDS: CEFAZOLIN 2 GM/100 ML PREMIX 100 ML IV (05:13)
[2022-07-18] MEDS: HYDROMORPHONE 0.5 MG INJ IV ×4 (05:26→17:20)
--- NOTE | 2022-07-18 07:45 | PM.PNPO.1 ---
Subjective Subjective Date Patient Seen: 07/18/22 Time Patient Seen: 07:45 Interval history: Pain is been moderate to severe. Denies fever or chills. No nausea or vomiting. Exam Vital Signs (past 8 hours): - 07/18/22 00:27 07/18/22 04:00 Temperature 97.7 F 97.9 F Pulse Rate 82 82 Respiratory Rate 17 16 Blood Pressure 161/86 H 157/85 H Pulse Oximetry 96 97 Oxygen Flow Rate 2.5 2.5 Oxygen Delivery Method Nasal Cannula Oxygen Flow Rate 2.5 Narrative Exam Narrative: 82-year-old male resting comfortably in bed in no apparent distress. Patient is on 2.5 L oxygen per nasal cannula Const General: cooperative and comfortable Nutritional Appearance: average body habitus Orientation: alert Resp Effort & Inspection: normal respiratory effort and able to speak in complete sentences Objective Labs 07/18/22 04:37 Labs: Laboratory Results - last 24 hr 07/17/22 07/18/22 11:04 04:37 Hgb 12.3 L Hct 36.3 L SARS-CoV-2 (PCR) Negative [facility] Medical History Allergic rhinosinusitis Anxiety Arthritis Asbestos exposure Burn Centrilobular emphysema Chronic pain syndrome COPD (chronic obstructive pulmonary disease) Depression Easy bruisability Facet arthropathy, lumbar Hyperlipidemia Lower urinary tract symptoms (LUTS) Lumbar radiculopathy Persistent asthma Rhinosinusitis Spondylolisthesis at L4-L5 level Surgical History History of carpal tunnel surgery of left wrist History of carpal tunnel surgery of right wrist History of tonsillectomy and adenoidectomy History 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 History of vasectomy Hx of nasal sinusotomy Social History household members: spouse Smoking Status: Former smoker alcohol intake: never Assessment & Plan Post-op Postoperative Procedures: Procedures Operation Date: 04/26/22 12:45 <No data on this case meets the specified criteria> Operation Date: 07/17/22 12:45 Actual Procedure Side Surgeon p L4-5 TLIF Not Applicable Jaden Day MD Postoperative day: 1 Postoperative status: doing well and marginal pain control Postoperative status narrative: Stable status post lumbar fusion Postoperative plan: routine post-op care Postoperative plan narrative: Weightbearing as tolerated, limit bending, lifting, twisting Multimodal pain management Discontinue Avina catheter Disposition likely home today or tomorrow depending on his ability to ambulate with physical therapy and when he safe for home environment. Quality VTE Deep Vein Thrombosis/Pulmonary Embolism Present on Admission: No
[2022-07-18] MEDS: FLUoxetine 20 MG CAPSULE PO (09:10)
[2022-07-18] MEDS: DOCUSATE 100 MG CAPSULE PO ×2 (09:10→20:48)
--- NOTE | 2022-07-18 09:10 | PT.IIE ---
Current Diagnoses Spondylolisthesis, lumbar region (07/17/22) Spinal stenosis, lumbar region with neurogenic claudication (07/17/22) Surgery Performed Operation Date: 04/26/22 12:45 <No data on this case meets the specified criteria> Operation Date: 07/17/22 12:45 Actual Procedures p L4-5 TLIF(Not Applicable) - Jaden Day MD Surgical History (Last Reviewed 07/18/22 @ 07:46 by Fabrizio Rock PA-C) History of carpal tunnel surgery of left wrist History of carpal tunnel surgery of right wrist History of tonsillectomy and adenoidectomy History 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 History of vasectomy Hx of nasal sinusotomy Medical History (Last Reviewed 07/18/22 @ 07:46 by Fabrizio Rock PA-C) Allergic rhinosinusitis Anxiety Arthritis Asbestos exposure Burn Centrilobular emphysema Chronic pain syndrome COPD (chronic obstructive pulmonary disease) Depression Easy bruisability Facet arthropathy, lumbar Hyperlipidemia Lower urinary tract symptoms (LUTS) Lumbar radiculopathy Persistent asthma Rhinosinusitis Spondylolisthesis at L4-L5 level Physical Therapy Inpatient Evaluation/Re-Eval M1 PT/OT-IP Prior Functional Status Start: 07/18/22 12:30 Freq: NEEDED Status: Active Protocol: Document 07/18/22 09:10 AB (Rec: 07/18/22 12:45 AB [id number]) Medical Review Prior Functional Status Medical History Reviewed Yes Communication able to make needs known Mobility and Gait pt stated that he is modified independent with all mobilities and ambulation without AD but tends to furniture cruise Social History Household Members spouse Living Arrangements House Number of Floors (Floors) One Floor Number of Stairs To Enter/Railing? not steps to enter but has 2 steps without rails to get to the living room and 2 steps without rails to the kithen Home Environment Standard Height Toilet,Walk in Shower Home Equipment Front Wheel Walker,Four Wheel Walker,Power Wheelchair/ Scooter Additional Social History Comment spouse has medicall issues and will not be able to assist pt pt has an adjustable bed and usually has his be up to ~ 30 deg M2 PT-IP Current Condition Start: 07/18/22 12:30 Freq: NEEDED Status: Active Protocol: Document 07/18/22 09:10 AB (Rec: 07/18/22 12:45 AB [id number]) Physical Therapy Current Condition Current Condition Evaluation Date 07/18/22 Treatment Diagnosis s/p L4-5 TLIF; difficulty in walking Onset Date 07/17/22 M3 PT-IP Subjective Start: 07/18/22 12:30 Freq: NEEDED Status: Active Protocol: Document 07/18/22 09:10 AB (Rec: 07/18/22 12:45 AB [id number]) Subjective Physical Therapy Visit Type Type Initial Evaluation Visit Start Time 09:10 Visit Stop Time 09:52 Total Visit Minutes 42 Number of BOARDING KENNEL OR CATTERY OPERATOR Visits 0 Therapy Pain Assessment Pain When Pain Assessed At Rest Pain Present Pain Present Pain Reported Location low back, right leg Intensity 8 Scale Used Numeric (0 - 10) Pain Management Techniques Distraction,Modification of Treatment,Re-positioning, Timing of Activity with Medications M4 PT-IP Mobility and Gait Start: 07/18/22 12:30 Freq: NEEDED Status: Active Protocol: Document 07/18/22 09:10 AB (Rec: 07/18/22 12:45 AB [id number]) PT-Bed Mobility Assessment Rolling Type of Rolling Log Rolling Supine to Sit Supine to Sit Minimal Assistance,Moderate Assistance,Head of Bed Elevated PT-Transfer Assessment Sit to and From Stand Sit to and from Stand Moderate Assistance,Maximum Assistance,1 Person Assistance ,Use of Upper Extremities Equipment Transfer Assistive Device Gait Belt,Front Wheeled Walker Orthotic/Prosthetic Devices or Brace: No Transfers Transfer Destination Chair Transfer Technique ambulated Transfer Ability Level of Assist Moderate Assistance,Maximum Assistance,1 Person Assistance ,Use of Upper Extremities Comments Mobility Comments educated on back precautions and log roll bed mobility. pt unable to recall back precautions. completed log rol supine to sit min to mod A and max cues. able to sit on EOB CGA. completed sit to stand mod to max A and max cues. needed 2 attempts to complete. ambulated in room using FWW ~ 20 ft mod to max A and max cues. presents with unsteady gait with decrease LE elevation and heavy UE use on FWW. pt agreed to sit on the chair. positioned on the chair. call light and table placed within reach. Gait Assessment Gait Gait Assistance Required: Moderate Assistance Distance (Feet) 20 Able to Maintain Weight Bearing Status Yes During Gait Assistive Devices Assistive Device Gait Belt,Front Wheeled Walker Orthotic/Prosthetic Devices or Brace: No Gait Deviations General Gait Pattern Decreased Stride Length, Decreased Feet Clearance,Step- to Gait Factors Limiting Gait Function Factors Limiting Gait Function Decreased Activity Tolerance, Decreased Strength,Limited Range of Motion,Pain,Poor Balance,Poor Safety Awareness PT-Balance Assessment Sitting Balance and Reactions Static Sitting Balance Ability Good Dynamic Sitting Balance Ability Fair Standing Balance and Reactions Static Standing Balance Ability Poor Dynamic Standing Balance Ability Poor Device Used FWW M5 PT-IP Objective Assessments Start: 07/18/22 12:30 Freq: NEEDED Status: Active Protocol: Document 07/18/22 09:10 AB (Rec: 07/18/22 12:45 AB [id number]) Orientation Orientation/Cognition Level of Alertness Alert Orientation Name,Place,Situation Language Function Ability Hard of Hearing Safety Awareness Decreased Safety Awareness Memory Description Short Term Impaired Gross Range of Motion Lower Extremity ROM Assessment Within Functional Limits Strength Lower Extremity Strength Hip 4-/5 Knee 4-/5 Sensation Assessment Sensation Gross Sensation WNL Muscle Tone Muscle Tone WNL Yes M6 PT-IP Treatment Start: 07/18/22 12:30 Freq: NEEDED Status: Active Protocol: Document 07/18/22 09:10 AB (Rec: 07/18/22 12:45 AB [id number]) Physical Therapy Treatment Education Education Provided Precautions,Weight Bearing Status,Post-Op Packet,Safety M7 PT-IP Assessment and Plan Start: 07/18/22 12:30 Freq: NEEDED Status: Active Protocol: Document 07/18/22 09:10 AB (Rec: 07/18/22 12:45 AB [id number]) PT Summary Assessment and Plan Potential Rehabilitation Potential Fair Status of Condition at Evaluation Evolving Summary Impairments Pain,ROM,Strength,Balance, Coordination,Sensation,Tone, Cognition,Bed Mobility, Transfers,Gait,Activity Tolerance Assessment Summary pt requiring mod to max A with mobility using FWW and will need 24/7 assist availability at home. spouse will not be able to assist pt. informed pt regarding SNF rehab but pt refuses. educated pt on SNF rehab recommendation and is aware. will continue to assess progress. pt also has 2 steps without rails to get to the kitchen and living area and at this time is not appropriate to do stair climbign. Goals Bed Mobility Goal Standby Assistance Transfer Goal Standby Assistance,Front Wheeled Walker Gait Goal Standby Assistance,Front Wheel Walker Gait Distance 75 Other Goals up/down 2 steps without AD/ least restrictive AD SBA Days to Meet Goals 10 Frequency of Treatment Frequency Of Treatment Twice a Day Treatment Plan Physical Therapy Treatment Plan Bed Mobility Training,Transfer Training,Gait Training, Therapeutic Exercise,Balance Retraining,Post Op Education, Discharge Planning,Hot or Cold Pack,Neuromuscular Re-ed, Coordination Retraining,Manual Therapy Precautions Lumbar Precautions Log Roll,No Twisting,Limit Bending,Lifting Restriction of 10 lbs,Gait Belt above Incisional Area Recommendations To Nursing Amount of Assist Needed 1 Person Assist Discharge Recommendations PT Discharge Recommendations Home with 18/12 Assist Available,Home Health,SNF Rehab,Home vs SNF Transportation Needs at Discharge Private Vehicle,Wheelchair/ Cabulance
--- NOTE | 2022-07-18 09:12 | CM.DANOTE ---
Addendum entered by Anne-Marie Brock R.N. 07/18/22 15:38: There are discharge orders, but patient is still max assist. Went ahead and called Hari at [facility] and updated him, sent DC Summary, orders, therapy notes. Let Hari know that patient may possibly not discharge today, and will update him tomorrow if this is the case. Addendum entered by Anne-Marie Brock R.N. 07/18/22 14:18: Went ahead and faxed over P.T notes over to [facility], just to review, and updated Sara Bocanegra, [facility] family preservation caseworker. She will have their provider review once they receive the notes. Will go ahead and complete a face to face for [facility], since patient may not get authorized for nursing home. Addendum entered by Anne-Marie Brock R.N. 07/18/22 11:11: Discussed patient during team rounds. P.T. had mentioned the possibility of patient needing nursing home. Barrier is that this is elective surgery, and most likely will not get authorized. Checked in with patient, he is adamant that he wants to go home with home health, not skilled rehab. Checked with Sara at [facility], and confirmed, may be hard to get him authorized with elective surgery, would have to go through their provider. Patient will work again with P.T. this afternoon. Addendum entered by Anne-Marie Brock R.N. 07/18/22 09:32: Called [facility], spoke to Hari, confirmed that Ritz is one of their O.T. personel. Hari recognizes this patient, not sure if he is still under services with them, but can check on this. This DC Service Tech will go ahead and send referral to them. Original Note: DCP: Case received, EMR reviewed and met with patient. Introduced self and role. Was able to obtain information regarding patient's baseline activity at home prior to surgery. DCP assessment completed with information currently available. Patient is an 82 year old male who admitted yesterday morning to the care of the orthopedic team. PCP: Dr. Milan. Payer: confirmed: [facility]. Patient came to the hospital via private vehicle for a surgical procedure. Patient had L4-5 postero-lateral and posterior interbody fusion. Patient has history of spinal stenosis. Met with patient in his room. He was sitting up in bed, coughing. Patient was on oxygen. His history of COPD, according to nurse. He is alert and oriented, he has not yet worked with P.T. Patient resides in [facility] with spouse, Melanie. At his baseline, he indicated, it has been hard getting around, but has a walker with the seat on it for home use. He has a couple of stairs to get in to the home. Asked him if his spouse would be able to assist him at home, he stated, it's kind of hard for her to get around as well. Confirmed that his other family members work. he is interested in home health, stated that he recently had it, can't remember the name, but worked with someone named Rocky. Patent has not yet worked with P.T. P: DCP to continue to follow. Patient is [facility], had an elective surgery, most likely will not cover rehab, but will see how he does with therapy, and can go over home health options. Anne-Marie Brock RN/Entry Analyst Discharge Planning/Care Management CM Discharge Assessment Start: 07/18/22 09:08 Freq: Status: Active Protocol: Document 07/18/22 09:08 (Rec: 07/18/22 09:12 [id number]) Discharge Planning Assessment Assigned Truck Hop Anne-Marie Brock RN/Entry Analyst Advance Directives? No History Provided By Patient,Medical Record Prior Living Arrangements House Household Members spouse Type of transporation used prior to Drives own vehicle admit Independent with ADL's Yes Is patient alert and oriented? Yes Caregiver for Another No DME Already Rented / Owned Other Comment Patient has four wheel walker that he has been using at home . Patient/Family Preference Home with Home Health Comment Discussed briefly with patient . Barriers to Discharge Yes Comment Patient's spouse is also having problems getting around according to patient. They have no other local family. Discharge Plan Home with Home Health Transportation Arrangement Spouse? Referrals Initiated Other Additional Comment Patient is interested in home health, has recently had it, can't remember the name. If patient plan is SNF: Has PASSR been Yes completed? SNF/HH Preference Have not yet gone over with patient. Has Agency SNF been contacted No Whiteboard Updated in Patient Room with Yes name and ext. # of Truck Hop Review Status In Process Next Review Type Continued Stay Review Pre-Anesthesia Assessment Start: 07/13/22 10:47 Freq: Status: Complete Protocol: Document 07/13/22 10:47 [facility] (Rec: 07/13/22 11:36 CAB [id number]) Pre-Anesthesia Assessment Preferred Name [facility] Patient Information Reviewed Via Phone Assessment Assessment Completed With Patient Comment Outside labs/EKG scanned Primary Care Provider Felicita Milan Medical Clearance Received Yes Seen Specialist in Last 12 Months Yes Specialist Seen Acid Purifier,Orthopedist, Studio Technician Video Operator Comment PCP clearance and Pulmonary visit w/clearance scanned Primary Language Bermudian Preferred Language Bermudian Pit Inspector Required No Height 5 ft 10 in Weight 189 lb Body Mass Index (BMI) 27.1 Hearing Ability Normal Visual Assist Glasses Dentition Type Teeth, Natural Present,Full- Upper & Lower Barriers to Learning Age related,Memory Hx Anesthesia Reactions No Hx Family Anesthesia Reaction No Hx Malignant Hyperthermia No Hx Blood Transfusions No Anesthesia Review Requested Yes: Two prior reviews completed, scanned into chart & in folder for dos Neck Band Operator No alcohol intake never Smoking Status Former smoker how long ago did patient quit smoking Quit 1990 Substance Use Type does not use Pain Present Pain Reported Musculoskeletal Symptoms Abnormal Gait,Back Pain, Difficulty Walking,Joint Pain, Radiating Pain into Limb History of Falling (Recent or History of Yes ) Patient is completely paralyzed or No completely immobile Prosthesis or Orthotic Device Front Wheel Walker Mental Status Oriented to own ability Is patient on oxygen? No Does patient have LIMON/SOB Yes: Controlled Hx Sleep Apnea No CPAP/BIPAP use not prescribed Currently Taking a Beta Barrera No Can You Climb a Flight of Stairs Without Yes SOB Hx Chest Pain No Hx SOB Yes: Controlled Hx Syncope or Dizziness No Anti-Coagulant Therapy No Has a Acid Purifier Yes: Pre-op clearance 06/14/[address] Nicole Cardiac Testing No Hx Pacemaker/ICD No Cardiac Clearance Received Yes Comment Cardiac records scanned Diet Type At Home Regular Dysphagia No Gastrointestinal Symptoms None Chronic UTI No Urinary Catheter Present No Hx Urinary Self Catheterization No Diabetes No Hx Drug Resistant Organism No Presence of External or Internal Medical Yes: Bilat hip prosthesis Devices Have you had any close contact with No someone diagnosed with COVID-19? Received a COVID vaccine? Yes Received all doses? Yes Marital Status Lives With spouse Current Living Arrangements House Support System Child/Children,Spouse Does the Patient Have Assistance After Yes: Daughter is also Surgery available to assist with care @ [facility] Patient Discharge Plan Description Return Home Comment Pt advised 1-2 day length of stay per surgeon Feels Safe in Current Environment Yes Been Physically Hurt or Threatened By a No Person in Current Environment Do you have thoughts of harming yourself None or others? Are you currently considering suicide? No Do you have a plan to hurt yourself or No Plan others? Do You Have Any Spiritual Beliefs That No May Affect Your HC Choices? Do You Have Any Cultural Practices That No May Affect Your HC Choices? Comment Tray Who Can We Speak to About Patient's Care Family, friends Identifying Code for Release of Patient Declines to issue Information Health Care Proxy/Next of Kin Melanie () Health Care Proxy Phone Number Home:[phone] or cell:[phone] Emergency Contact Name Melanie Barrow () Brigid (Daughter) Emergency Contact Phone Number Home:[phone] or cell:[phone] Brigid: Advance Directives? No: Declines further information Power of Retail Event Assistant Yes Power of Retail Event Assistant Name Melanie Barrow () Power of Retail Event Assistant Phone Number Home:[phone] or cell: PAC Instructions Durable medical equipment, Medications to take/avoid, Nasal antibiotic,No ETOH/ petroleum product on skin DOS, NPO,Post-op transportation,Pre -surgical wash,Sturdy shoes/ comfortable clothes,Do not bring valuables and remove jewelry
[2022-07-18] MEDS: IPRATROPIUM 0.5 MG/2.5 ML NEB INH ×3 (10:11→19:58)
[2022-07-18] MEDS: BUDESONIDE 0.5 MG/2 ML NEB INH ×2 (10:11→19:56)
--- NOTE | 2022-07-18 11:11 | OT.IP.EVAL ---
Current Diagnoses Spondylolisthesis, lumbar region (07/17/22) Spinal stenosis, lumbar region with neurogenic claudication (07/17/22) Surgery Performed Operation Date: 04/26/22 12:45 <No data on this case meets the specified criteria> Operation Date: 07/17/22 12:45 Actual Procedures p L4-5 TLIF(Not Applicable) - Jaden Day MD Past Medical History (Last Reviewed 07/18/22 @ 07:46 by Fabrizio Rock PA-C) Allergic rhinosinusitis Anxiety Arthritis Asbestos exposure Burn Centrilobular emphysema Chronic pain syndrome COPD (chronic obstructive pulmonary disease) Depression Easy bruisability Facet arthropathy, lumbar Hyperlipidemia Lower urinary tract symptoms (LUTS) Lumbar radiculopathy Persistent asthma Rhinosinusitis Spondylolisthesis at L4-L5 level Surgical History (Last Reviewed 07/18/22 @ 07:46 by Fabrizio Rock PA-C) History of carpal tunnel surgery of left wrist History of carpal tunnel surgery of right wrist History of tonsillectomy and adenoidectomy History 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 History of vasectomy Hx of nasal sinusotomy Occupational Therapy Inpatient Evaluation/Re-Eval M1 PT/OT-IP Prior Functional Status Start: 07/18/22 12:30 Freq: NEEDED Status: Active Protocol: Document 07/18/22 12:49 [facility] (Rec: 07/18/22 13:19 [facility] [id number]) Medical Review Prior Functional Status Medical History Reviewed Yes Communication able to make needs known Mobility and Gait pt stated that he is modified independent with all mobilities and ambulation without AD but tends to furniture cruise Activities of Daily Living and IADL's Pt states has pain but able to manage his ADl needs. Social History Household Members spouse Living Arrangements House Number of Floors (Floors) One Floor Number of Stairs To Enter/Railing? not steps to enter but has 2 steps without rails to get to the living room and 2 steps without rails to the kitchen Home Environment Standard Height Toilet,Walk in Shower Home Equipment Front Wheel Walker,Four Wheel Walker,Power Wheelchair/ Scooter Additional Social History Comment spouse has medical issues and will not be able to assist pt pt has an adjustable bed and usually has his be up to ~ 30 deg M2 OT-IP Current Condition Start: 07/18/22 12:49 Freq: Status: Active Protocol: Document 07/18/22 12:49 [facility] (Rec: 07/18/22 13:19 [facility] [id number]) Occupational Therapy Current Condition Current Condition Evaluation Date 07/18/22 Treatment Diagnosis S/P L4-5 TLIF Diagnosis Onset Date 07/17/22 M3 OT- IP Subjective and Pain Start: 07/18/22 12:49 Freq: Status: Active Protocol: Document 07/18/22 12:49 [facility] (Rec: 07/18/22 13:19 [facility] [id number]) OT- Subjective Occupational Therapy Visit Type Type Initial Evaluation Visit Start Time 10:41 Visit Stop Time 11:11 Total Visit Minutes 30 Occupational Therapy Visit Comments Patient Comments Pt agreed to get up and wanting to get back to bed due to back pain. Nursing called for pain medication. Patient/Caregiver Goals To go home, but realizes may have to go to skilled rehab as his unable to physically assist him. OT Pain Assessment Pain When Pain Assessed During Mobility Pain Present Pain Present Pain Reported Location low back, right leg Intensity 6 Scale Used Numeric (0 - 10) M4 OT- IP ADL's Start: 07/18/22 12:49 Freq: Status: Active Protocol: Document 07/18/22 12:49 [facility] (Rec: 07/18/22 13:19 [facility] [id number]) OT ADL-Grooming Comments OT Grooming Comments Pt states already did so earlier. OT ADL-Oral Care Comments Oral Care Comments Pt states did so earlier. OT ADL-Dressing General Eval Lower Body Dressing Ability Maximum Assistance Comments OT Dressing Comments Pt able to practice use of sock aid and operations consultant for LB dressing needs. Pt states has compression stocking and that his will have to assist him. Suggested for pt and to be mindful of body mechanics and positioning when trying to mayi/doff compression stocking, otherwise to get assist. OT ADL-Toileting Comments OT Toileting Comments Not having to go at this time. OT ADL-Bathing Comments OT Bathing Comments Sponge bath more appropriate at this time. M5 OT- IP IADL's Start: 07/18/22 12:49 Freq: Status: Active Protocol: Document 07/18/22 12:49 [facility] (Rec: 07/18/22 13:19 [facility] [id number]) OT-Instrumental Activities of Daily Living Deficits IADL Deficits Identified Deficits Home Safety Awareness Awareness of Need for Assistance at Home Good Awareness Ability to Problem Solve Emergency Able to Problem Solve Situations M6 OT- IP Functional Cognition Start: 07/18/22 12:49 Freq: Status: Active Protocol: Document 07/18/22 12:49 [facility] (Rec: 07/18/22 13:19 [facility] [id number]) Cognitive Factors Limiting Selfcare Function Cognitive Ability Level of Alertness Alert Patient Orientation Name,Place,Situation Attention Span Ability Capable of Focused Attention, Capable of Sustained Attention Ability to Follow Commands Able to Follow One Step Commands Cognitive Comments Cognitive Assessment Comments Pt able to follow commands for ADL and mobility needs. Pt able to recall his back precautions well and only needing minimal cues to incorporate during bed mobility and ADl needs. OT- Vision and Hearing OT- Vision Assessment Visual Acuity Glasses All The Time Visual Attentiveness WFL Occular Pursuits WFL M7 OT- IP Mobility and Balance Start: 07/18/22 12:49 Freq: Status: Active Protocol: Document 07/18/22 12:49 [facility] (Rec: 07/18/22 13:19 [facility] [id number]) OT- Bed Mobility Assessment Sit to Supine Sit to Supine Assist Moderate Assistance OT-Transfer Assessment Sit to and From Stand Sit to and from Stand Moderate Assistance,Maximum Assistance Transfers Transfer Ability Moderate Assistance Technique Transfer Destination Bed,Chair Transfer Technique Stand Step Pivot Devices Transfer Assistive Devices Gait Belt,Front Wheeled Walker Comments Mobility Comments MODA to help get his legs back into bed. MOD/MAX A to stand to the FWW. MODA for balance while walking to the sink and then bed. OT- Balance Assessment Sitting Balance and Reactions Static Sitting Balance Ability Good Dynamic Sitting Balance Ability Fair Standing Balance and Reactions Static Standing Balance Ability Poor Dynamic Standing Balance Ability Poor M9 OT- IP Assessment and Plan Start: 07/18/22 12:49 Freq: Status: Active Protocol: Document 07/18/22 12:49 [facility] (Rec: 07/18/22 13:19 [facility] [id number]) OT Summary Assessment and Plan Potential Rehabilitation Potential Good Analytic Complexity at Evaluation Low Summary OT Impairments Pain,Balance,Functional Mobility,Dressing,Toileting, Bathing,Toilet Transfers, Shower Transfers,Activity Tolerance Progress Towards Goals Progressing Toward Goals Assessment Summary Pt low complexity and main barrier are steps, pain, and needing MAXA to help to stand , MODA to help get his legs back into bed. Pt would benefit from short skilled rehab to continue to work on transitions especially from sit to stand and bed mobility needs. Pt is very pleasant and cooperative. Goals Grooming Goal Independent Dressing Goal Minimal Assistance Toileting Goal Minimal Assistance Bathing Goal Minimal Assistance Toilet Transfer Goal Contact Guard Assistance Shower Transfer Goal Minimal Assistance Days to Meet Goals 10 Frequency of Treatment Frequency Of Treatment Once a Day Treatment Plan OT Treatment Plan ADL Training,Functional Mobility,Patient/Family Education,Discharge Planning Other Treatment Recommendations and Next temperature control inspector front of the sink for Treatment Focus grooming needs with FWW. Discharge Recommendations OT Discharge Recommendations SNF Rehab Other Discharge Recommendations pending progress possibly home with 24/7 assist, however pt' s unable to do any lifting. Transportation Needs at Discharge Wheelchair/Cabulance
--- NOTE | 2022-07-18 13:22 | P.DS_ITS ---
History of Present Illness History of Present Illness Date Patient Seen: 07/18/22 Time Patient Seen: 07:45 Chief complaint: back pain Narrative: See progress note Discharge Providers Provider Date of admission: 07/17/22 10:47 Discharge Date: 07/18/22 Primary care physician: ONEIL Clayton Consults: 07/17/22 16:16 Consult to Occupational Therapy Evaluate & Treat Comment: Physician Instructions: Evaluate and treat Consult to Physical Therapy Evaluate & Treat Comment: Physician Instructions: Evaluate and Treat Discharge provider: Fabrizio Rock PA-C Summary Hospital Course Discharge Diagnosis: ?1. L4-5 spinal stenosis 2. L4-5 spondylosis with radiculopathy Hospital Course: 1. L4-5 Postero-lateral and posterior interbody fusion 2. L4-5 interbody cage placement. 3. L4-5 decompressive laminectomy with bilateral facetecomies 4. L4-5 Posterior non-segmental instrumentation 5. [place] of bone marrow from iliac crest 6. Utilization of microsurgical technique and operating microscope Same procedure as scheduled: Yes Indications: Patient has been having chronic back pain and worsening lumbar radiculopathy. Patient failed multiple conservative management with worsening pain weakness and numbness in his lower extremity.? Patient has been having difficulty performing activity of daily living.? After discussing risks benefits of treatment options, patient elected proceed with surgery. Surgeon: Jaden Day Reimbursement Specialist: Pamela Collazo Click Yes if Unassisted: No Anesthesia Type: General Operative Notes Closure Type: primary Specimen(s): none sent Prosthetic devices, grafts, tissues, transplants, or devices: Globus revolve screws, Rise cage Estimated Blood Loss (mL): 50 Blood products transfused: none Patient admitted to the hospital for the above-mentioned procedure. Patient consented to the same. Patient taken operating room on July 17, 2022. Patient back in the room recovering well as in stable condition. Patient will mobilize with physical therapy. Limit bending, twisting, lifting. Multimodal pain management. Likely discharge home today after physical therapy if safe for home environment. Exam Vital Signs (past 8 hours): - 07/18/22 07:45 07/18/22 10:26 07/18/22 11:00 Temperature 98.1 F 98.0 F Pulse Rate 67 78 77 Respiratory Rate 18 16 18 Blood Pressure 137/73 110/76 Pulse Oximetry 95 93 94 Oxygen Flow Rate 2.5 1 2.5 Oxygen Delivery Method Nasal Cannula Oxygen Flow Rate 2.5 Narrative Exam Narrative: See progress note Objective Labs 07/18/22 04:37 Labs: Laboratory Results - last 24 hr 07/18/22 04:37 Hgb 12.3 L Hct 36.3 L PFSH Medical History Allergic rhinosinusitis Anxiety Arthritis Asbestos exposure Burn Centrilobular emphysema Chronic pain syndrome COPD (chronic obstructive pulmonary disease) Depression Easy bruisability Facet arthropathy, lumbar Hyperlipidemia Lower urinary tract symptoms (LUTS) Lumbar radiculopathy Persistent asthma Rhinosinusitis Spondylolisthesis at L4-L5 level Surgical History History of carpal tunnel surgery of left wrist History of carpal tunnel surgery of right wrist History of tonsillectomy and adenoidectomy History 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 History of vasectomy Hx of nasal sinusotomy Social History household members: spouse Smoking Status: Former smoker alcohol intake: never Discharge Assessment & Plan Assessment and Plan Assessment: Patient progressing as expected status post lumbar fusion Plan of Treatment: Multimodal pain management Mobilize with physical therapy, weight-bearing as tolerated, limit bending, twisting, lifting Keep dressing clean and dry Discharge home today after physical therapy if safe for home environment Discharge Plan Discharge Plan Patient Disposition: Home Discharge orders & Medications Prescriptions: New acetaminophen 325 mg Tablet 650 mg PO Q6HR PRN (Reason: Pain, Mild (1-3)) Qty: 60 0RF docusate sodium 100 mg Capsule 100 mg PO BID Qty: 10 0RF hydroxyzine pamoate 25 mg Capsule 25 mg PO Q4HR PRN (Reason: Nausea And Vomiting) Qty: 20 0RF oxycodone 10 mg Tablet 5 mg PO Q3HR PRN (Reason: Pain, Severe (7-10)) Qty: 60 0RF Continued montelukast 10 mg Tablet 10 mg PO BEDTIME fluticasone propionate 50 mcg/actuation [place],Suspension 1 - 2 spray INTRANASAL DAILY PRN (Reason: Nasal Congestion) Label Comments: Unsure if patient takes this cholecalciferol (vitamin D3) [Vitamin D3] 5,000 unit Tablet 500,000 unit PO QWEEK tamsulosin 0.4 mg Capsule,Extended Release 24hr 0.8 mg PO BEDTIME albuterol sulfate [Ventolin HFA] 90 mcg/actuation Hfa Aerosol Inhaler 2 puff INHALATION Q4-6H PRN (Reason: copd) Spiriva with HandiHaler 18 mcg Capsule, W/Inhalation Device 2 cap INHALATION DAILY Qty: 0 Rx Instructions: puncture 1 cap using device; one dose = 2 inhalations buprenorphine-naloxone 8-2 mg Tablet, Sublingual 2.5 tab SUBLINGUAL DAILY Rx Instructions: takes 18mg daily atorvastatin 20 mg Tablet 20 mg PO DAILY albuterol sulfate 2.5 mg /3 mL (0.083 %) Solution For Nebulization 2.5 mg INHALATION Q4-6H PRN (Reason: Shortness Of Breath) aspirin 325 mg Tablet 325 mg PO Q OTHER DAY fluticasone propion-salmeterol [Wixela Inhub] 500-50 mcg/dose Blister With Device 1 inh INHALATION BID azithromycin 250 mg capsule 250 mg PO QMWF fluoxetine 20 mg capsule 20 mg PO DAILY Discontinued acetaminophen 500 mg Capsule 1,000 mg PO Q6H PRN (Reason: Pain) Follow up/Referrals: Jaden Day MD [Physician] - As previously scheduled Felicita Milan ARNP [Primary Care Provider] - Diet/Activity/Treatments Diet: Diet as Tolerated Activity: Up and walking as tolerated, limit bending, twisting, lifting Skin/Wound/Dressing Care Report to your healthcare provider any signs of infection, such as:: chills, fever, night sweats, unusual drainage and unusual redness Dressing: May shower. Keep dressing clean, dry, and intact until your 2 week po stoperative follow up with orthopedics. If it becomes wet please call our office for dressing change. Visit Report/Discharge Packet Instructions: DI for Prescription Opioid Use, DI for Transforaminal Lumbar Interbody Fusion Stand Alone Forms: Patient Portal/API, Stroke Signs & Symptoms, Surgery Discharge Discharge Data Primary Care Provider: Felicita Milan Quality VTE Deep Vein Thrombosis/Pulmonary Embolism Present on Admission: No
[2022-07-18] MEDS: ALBUTEROL 2.5 MG/3 ML NEB (ADULT) INH (13:40)
[2022-07-18] MEDS: SENNOSIDES 8.6 MG TABLET 17.2 MG PO (20:48)
[2022-07-18] MEDS: ATORVASTATIN 20 MG TABLET PO (20:48)
[2022-07-18] MEDS: MONTELUKAST 10 MG TABLET PO (20:48)
[2022-07-18] MEDS: TAMSULOSIN 0.4 MG CAPSULE 0.8 MG PO (20:48)
[2022-07-19] VITALS (12 sets, daily range): BP systolic 147–183; BP diastolic 80–94; PULSE 81–93; RESP 15–26; TEMP 36.3–38.7; O2SAT 91–97
[2022-07-19] MEDS: ACETAMINOPHEN 325 MG TABLET 650 MG PO (03:06)
[2022-07-19] MEDS: ALBUTEROL 2.5 MG/3 ML NEB (ADULT) INH ×4 (03:20→17:27)
--- NOTE | 2022-07-19 04:00 | DI.RAD.S_ITS ---
PROCEDURE: XR CHEST 1V INDICATIONS: poss asp/Upper Gi Bleed TECHNIQUE: One view of the chest was acquired. COMPARISON: None. FINDINGS: Surgical changes and devices: None. Lungs and pleura: Patchy left basilar opacities. Mediastinum: Mediastinal contours appear normal. Heart size is normal. Bones and chest wall: No suspicious bony lesions. Overlying soft tissues appear unremarkable. IMPRESSION: Patchy left basilar airspace opacities. Findings could represent infection or atelectasis. Agree with preliminary interpretation. Dictated by: Bhanu Bradley M.D. on 07/19/2022 at 7:37 Approved by: Bhanu Bradley M.D. on 07/19/2022 at 7:41
[2022-07-19] MEDS: ONDANSETRON 4 MG/2 ML INJ IV ×4 (04:03→22:40)
--- NOTE | 2022-07-19 04:10 | PM.CN ---
History of Present Illness Consult details Date Patient Seen: 07/19/22 Time Patient Seen: 04:10 Chief complaint: back pain Reason for consult: Hematemesis Narrative: Tima Barrow is an 82-year-old male with a medical history of COPD, BPH with obstruction, depression with anxiety, chronic pain syndrome secondary to spondylolisthesis and spinal stenosis of the lumbar. Patient was admitted and is postop day 2 for a lumbar spinal fusion by Dr. Eckert, Dr. Michelle graciously requested that we consult regarding 2 episodes of hematemesis that have just occurred, that were guaiac positive. Subsequently per the nurse's report the patient's O2 saturation decreased, blood pressure elevated and respiratory rate elevated, he was placed on a oxygen mask. At the time of consult patient is resting comfortably and has not vomited further, febrile 101.7 BP 160/84, 84, 22, 94% on 2L/Mask. No baseline labs or imaging are in the patient's chart only in H&H which was 12.3/36.3. Ordered stat CBC, CMP, procalcitonin, lactate, CRP, ESR, blood cultures, wound culture if there is any drainage coming from the incision, and chest x-ray. Consultation for hematemesis postop spinal lumbar fusion day two. Meds Home Medications and Allergies Home Medications Medication Instructions Recorded Confirmed Type albuterol sulfate 90 mcg/actuation 2 puff inhalation Q4-6H PRN copd 10/09/17 07/17/22 History aerosol inhaler (Ventolin HFA) cholecalciferol (vitamin D3) 125 500,000 unit PO QWEEK 10/09/17 07/17/22 History mcg (5,000 unit) tablet (Vitamin D3) fluticasone propionate 50 1 - 2 spray intranasal DAILY PRN 10/09/17 07/13/22 History mcg/actuation nasal Nasal Congestion spray,suspension montelukast 10 mg tablet 10 mg PO BEDTIME 10/09/17 07/17/22 History tamsulosin 0.4 mg capsule 0.8 mg PO BEDTIME 10/09/17 07/17/22 History tiotropium bromide 18 mcg capsule 2 cap inhalation DAILY ##0 10/18/17 07/17/22 History with inhalation device (Spiriva with HandiHaler) azithromycin 250 mg capsule 250 mg PO QMWF 01/05/21 07/17/22 History fluoxetine 20 mg capsule 20 mg PO DAILY 01/05/21 07/17/22 History buprenorphine 8 mg-naloxone 2 mg 2.5 tab sublingual DAILY 06/09/21 07/17/22 History sublingual tablet albuterol sulfate 2.5 mg/3 mL 2.5 mg inhalation Q4-6H PRN 07/13/22 07/17/22 History (0.083 %) solution for nebulization Shortness Of Breath aspirin 325 mg tablet 325 mg PO Q OTHER DAY 07/13/22 07/17/22 History atorvastatin 20 mg tablet 20 mg PO DAILY 07/13/22 07/17/22 History fluticasone 500 mcg-salmeterol 50 1 inh inhalation BID 07/13/22 07/17/22 History mcg/dose blistr powdr for inhalation (Wixela Inhub) acetaminophen 325 mg tablet 650 mg PO Q6HR PRN Pain, Mild 07/18/22 Rx (1-3) #60 tabs docusate sodium 100 mg capsule 100 mg PO BID #10 caps 07/18/22 Rx hydroxyzine pamoate 25 mg capsule 25 mg PO Q4HR PRN Nausea And 07/18/22 Rx Vomiting #20 caps oxycodone 10 mg tablet 5 mg PO Q3HR PRN Pain, Severe 07/18/22 Rx (7-10) #60 tabs Allergies Allergy/AdvReac Type Severity Reaction Status Date / Time No Known Drug Allergies Allergy Verified 07/17/22 11:08 Review of Systems Review of Systems Narrative: All 12 point systems reviewed with the patient and are negative except otherwise documented. Exam Vital Signs (past 8 hours): - 07/18/22 22:26 07/19/22 00:00 07/19/22 03:06 Temperature 99.6 F 101.7 F H Pulse Rate 93 H Respiratory Rate 15 Blood Pressure 147/80 H Pulse Oximetry 92 Oxygen Delivery Method Room Air Oxygen Flow Rate 2 07/19/22 03:11 Temperature 101.7 F H Pulse Rate 91 H Respiratory Rate 26 H Blood Pressure 172/82 H Pulse Oximetry 92 Oxygen Delivery Method Oxygen Flow Rate 2 Oxygen Delivery Method Room Air Oxygen Flow Rate 2 Narrative Exam Narrative: General: Patient is a well-developed, well-nourished in no acute distress at this time. HEENT: Normocephalic, atraumatic, extraocular muscles intact, oral pharynx is clear and mucous membranes are moist. Neck is supple and symmetric, trachea is midline, no adenopathy, no thyroid enlargement, nontender, no masses palpated. Negative for JVD Chest: Mildly labored tachypneic breathing at this time without nasal flaring or accessory muscles. Lungs: Auscultation of all lung culver are clear without adventitious sounds, wheezes, rhonchi, or rales. Cardio: regular rate and rhythm Abdomen: Slightly distended nontender negative for organomegaly, or masses. Bowel sounds are present in all 4 quadrants without guarding or rebound, no CVA tenderness. Musculoskeletal: Muscle strength and tone are equal within normal limits, no deformity, crepitus, effusions, cyanosis, clubbing or edema present. Full range of motion intact radial and pedal pulses are normal. Skin: Warm dry and intact without rashes, ulcerations or petechiae. Neuro: Alert and orientated x3, strength is +5/5 in all extremities, sensation to touch intact, no gross deficits noted of cranial nerves. Psych: Patient has a well-kept appearance, appropriate affect, mental status attitude thought context and judgment are appropriate for age. Objective Labs 07/18/22 04:37 Labs: Laboratory Results - last 24 hr 07/18/22 04:37 Hgb 12.3 L Hct 36.3 L PFSH Medical History Allergic rhinosinusitis Anxiety Arthritis Asbestos exposure Burn Centrilobular emphysema Chronic pain syndrome COPD (chronic obstructive pulmonary disease) Depression Easy bruisability Facet arthropathy, lumbar Hyperlipidemia Lower urinary tract symptoms (LUTS) Lumbar radiculopathy Persistent asthma Rhinosinusitis Spondylolisthesis at L4-L5 level Surgical History History of carpal tunnel surgery of left wrist History of carpal tunnel surgery of right wrist History of tonsillectomy and adenoidectomy History 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 History of vasectomy Hx of nasal sinusotomy Family History Father No problems noted. Grandfather No problems noted. Social History household members: spouse Tobacco & Substance Use Smoking Status: Former smoker alcohol intake: never Assessment & Plan Assessment & Plan narrative: Tima Barrow is an 82-year-old male with a medical history of COPD, BPH with obstruction, depression with anxiety, chronic pain syndrome secondary to spondylolisthesis and spinal stenosis of the lumbar. Patient was admitted and is postop day 2 for a lumbar spinal fusion by Dr. Eckert, Dr. Michelle graciously requested that we consult regarding 2 episodes of hematemesis that have just occurred, that were guaiac positive. Patient has had no further episodes of hematemesis, H&H has actually increased, little sign of postop infection though the patient continues to run a fever recommend monitoring for an additional 24 hours, likely will be able to sign tomorrow. 1. Hematemesis, x2, acute, s/p 2nd day postop lumbar fusion, present on admission -guaiac-positive, no history of GI bleed patient is not on any anticoagulation. -resting comfortably and has not vomited further, -101.7 BP 160/84, 84, 22, 94% on 2L/Mask. No baseline labs or imaging are in the patient's chart only in -Initial H&H which was 12.3/36.3. Repeat 13.1/39 -WBC is normal does have a mild left shift neut 7100, lactate and procalcitonin are WNL. 2. CHER, acute, present on Consult -based on review of what was in the medical records though I have no labs to compare to see the following: -sodium 134, chloride 97, BUN 33, creatinine 1.33, GFR 54, glucose 158 -CRP and ESR blood cultures ordered 3. Chronic pain syndrome, secondary to spondylolisthesis and spinal stenosis of lumbar, acute on chronic, present on admission -continue patient's Suboxone film tramadol, prednisone -managed by Dr. Arcos's pain management 4. COPD, chronic, present on admission -continue albuterol, Spiriva 5. Depression with anxiety, chronic, present on admission -continue fluoxetine 6. BPH with obstruction LUTS, chronic, present on admission -continue tamsulosin Code status:Full Surrogate decision maker: Melanie COVID PCR:Negative Disposition:Consult I have utilized all available immediate resources to obtain, update, or review the patient's current medications. I confirmed that the patient's advanced care plan is present, Code status is documented and/or surrogate decision maker is listed in the patient's medical record. I have personally reviewed patient's chart notes from PCP, specialists, diagnostic imaging, and laboratory results. Time Spent With Patient Critical Care time: I spent a total of [] minutes of critical care time on this patient's care today; this time is exclusive of procedural time.
[2022-07-19 04:22] LABS: Add Manual Diff / Slide Review NO; Basophils Absolute Auto 0 /uL (0-100); Basophils Percent Auto 0.3 % (0-2); Eosinophils Absolute Auto 0 /uL (0-450); Hemoglobin 13.1 g/dL (13.5-17.5); Lymphocytes Absolute Auto 500 /uL (1100-4500); Lymphocytes Percent Auto 6.2 % (25-40); Mean Corpuscular HGB Conc 33.5 % (30-36); Mean Corpuscular Hemoglobin 30.7 PG (26-34); Mean Corpuscular Volume 91.8 fL (80-100); Monocytes Absolute Auto 700 /uL (0-900); Monocytes Percent Auto 8.7 % (3-14); Neutrophils Absolute Auto 7100 /uL (1500-7000); Neutrophils Percent Auto 84.8 % (50-75); Platelet Count 152 X10^3/uL (150-400); Red Blood Cell Count 4.25 X10^6/uL (4.5-5.9); Red Cell Distribution Width 14.6 % (11.6-14.8); White Blood Cell Count 8.3 X10^3/uL (4.5-11.0)
[2022-07-19 04:32] LABS: INR 1.2 (0.9-1.3); Prothrombin Time 14.2 SECONDS (10.1-12.7)
[2022-07-19 04:38] LABS: Alanine Aminotransferase 26 IU/L (<50); Albumin 3.7 g/dL (3.5-5.0); Albumin Globulin Ratio 1.2 (1.0-2.8); Alkaline Phosphatase 84 U/L (38-126); Aspartate Aminotransferase 49 IU/L (17-59); BUN Creatinine Ratio 24.8 (6-22); Bilirubin Total 0.6 mg/dL (0.2-1.3); Blood Urea Nitrogen 33 mg/dL (9-20); Calcium 8.6 mg/dL (8.4-10.2); Carbon Dioxide 28 mmol/L (22-32); Chloride 97 mmol/L (98-107); Estimated Glomerular Filt Rate 54 mL/min (>60); Glucose 158 mg/dL (80-110); HEMOLYSIS < 15 (0-50); Lactate (Lactic Acid) 1.3 mmol/L (0.7-2.1); Potassium 3.7 mmol/L (3.4-5.1); Sodium 134 mmol/L (137-145); Total Protein 6.7 g/dL (6.3-8.2)
[2022-07-19] MEDS: PANTOPRAZOLE 40 MG VIAL IV (04:43)
[2022-07-19 04:54] LABS: Procalcitonin 0.14 ng/mL (<0.5)
[2022-07-19 07:51] LABS: Hematocrit 38.9 % (41-53)
--- NOTE | 2022-07-19 09:05 | DI.CT.S_ITS ---
PROCEDURE: CT ANGIO CHEST PE PROTOCOL INDICATIONS: post op lumbar surgery, shortness of breath TECHNIQUE: After the administration of intravenous contrast, 2 mm thick sections acquired from the pulmonary apices to the posterior costophrenic angles. 3-dimensional maximum intensity projection (MIP) coronal and sagittal reformats were then acquired through the thorax. For radiation dose reduction, the following was used: automated exposure control, adjustment of mA and/or kV according to patient size. COMPARISON: None. FINDINGS: Image quality: Excellent. Pulmonary arteries: Pulmonary arteries are normal in size, and demonstrate no intraluminal filling defects to suggest central pulmonary embolism. Lungs and pleura: Confluent centrilobular emphysema. Diffuse bronchial thickening. There is dependent mucous plugging within the lower lobes. Bibasilar atelectasis. Mediastinum: Heart size is normal, without pericardial effusion. No mediastinal or hilar adenopathy. Thoracic aorta is normal in caliber and enhancement. Circumferential thickening of the mid to distal esophagus appearance suspected small hiatal hernia. Moderate coronary artery calcifications. Bones and chest wall: No suspicious bony lesions. Ribs and thoracic spine appear intact throughout. Thyroid gland is unremarkable. No axillary or supraclavicular adenopathy. Osteoporosis by the Hounsfield units criteria. L1 hemangioma. Abdomen: Visualized upper abdominal solid organs appear normal in the early arterial phase of enhancement. IMPRESSION: 1. No pulmonary embolus. 2. Dependent mucous plugging within the lower lobes, with associated bronchial thickening. Findings could represent COPD exacerbation, aspiration or respiratory bronchiolitis. 3. Circumferential thickening of the mid to lower esophagus. Findings suggestive of esophagitis, less likely malignancy. Dictated by: Bhanu Bradley M.D. on 07/19/2022 at 9:32 Approved by: Bhanu Bradley M.D. on 07/19/2022 at 9:39
--- NOTE | 2022-07-19 09:06 | CM.DPC ---
DCP Cont: Spoke to nurse, Elvira, had mentioned that patient had some vomiting last night, was seen by LIVESTOCK INSPECTOR. Also, had chest x-ray. Went ahead and sent consultation by L[facility]STOCK INSPECTOR, as well as CXR over to [place], mentioning that patient may need alf. Had already spoke to Sara Bocanegra at [place] yesterday, when P.T. note was sent, prior to this episode. Patient still has been hopeful for home, but will need to see today how he does with P.T, or if he is able to work with them. Have not yet seen spouse at bedside. P: DCP to continue to work on plan. Plan is for home with [facility], but will have to see how he does with P.T. today. Anne-Marie Brock RN/Boning Room Worker
--- NOTE | 2022-07-19 09:21 | P.PN_ITS ---
Subjective Subjective Date Patient Seen: 07/19/22 Time Patient Seen: 09:21 Interval history: Pt just got back to room from CT angio when I saw him today. C/o nausea, vomited during our visit, also reported vomiting in radiology. Appreciate hospitalist help. C/o pain in low back. Does not want guevara catheter to be removed as he is unable to use hand-held urinal and is too ill at this time to get to bedside commode. Exam Vital Signs (past 8 hours): - 07/19/22 03:06 07/19/22 03:11 07/19/22 04:18 Temperature 101.7 F H 101.7 F H Pulse Rate 91 H Respiratory Rate 26 H Blood Pressure 172/82 H Pulse Oximetry 92 Oxygen Delivery Method Oximask Oxygen Flow Rate 2 07/19/22 04:00 07/19/22 08:05 Temperature 98.5 F Pulse Rate 84 81 Respiratory Rate 22 20 Blood Pressure 160/84 H 168/92 H Pulse Oximetry 94 96 Oxygen Delivery Method Oxygen Flow Rate 2 2 Oxygen Delivery Method Oximask Oxygen Flow Rate 2 Narrative Exam Narrative: 5/5 strength in hip flexors, quadriceps, hamstrings, DF, PF, EHL bilaterally. Sensation to light touch intact throughout BLE. Calves soft, compressible, nontender and without palpable cords or masses. Low back dressing CDI. Objective Labs 07/19/22 07:30 07/19/22 04:00 Labs: Laboratory Results - last 24 hr 07/19/22 07/19/22 07/19/22 04:00 04:00 04:00 WBC 8.3 RBC 4.25 L Hgb 13.1 L Hct 39.0 L MCV 91.8 MCH 30.7 MCHC 33.5 RDW 14.6 Plt Count 152 Neut % (Auto) 84.8 H Lymph % (Auto) 6.2 L [place] % (Auto) 8.7 Eos % (Auto) 0.0 L Baso % (Auto) 0.3 Neut # (Auto) 7100 H Lymph # (Auto) 500 L [place] # (Auto) 700 Eos # (Auto) 0 Baso # (Auto) 0 PT 14.2 H INR 1.2 Sodium 134 L Potassium 3.7 Chloride 97 L Carbon Dioxide 28 BUN 33 H Creatinine 1.33 H Estimated GFR 54 L BUN/Creatinine Ratio 24.8 H Glucose 158 H Lactate Calcium 8.6 Total Bilirubin 0.6 AST 49 ALT 26 Alkaline Phosphatase 84 Total Protein 6.7 Albumin 3.7 Globulin 3.0 Albumin/Globulin Ratio 1.2 Procalcitonin 0.14 07/19/22 07/19/22 04:00 07:30 WBC RBC Hgb 13.0 L Hct 38.9 L MCV MCH MCHC RDW Plt Count Neut % (Auto) Lymph % (Auto) [place] % (Auto) Eos % (Auto) Baso % (Auto) Neut # (Auto) Lymph # (Auto) [place] # (Auto) Eos # (Auto) Baso # (Auto) PT INR Sodium Potassium Chloride Carbon Dioxide BUN Creatinine Estimated GFR BUN/Creatinine Ratio Glucose Lactate 1.3 Calcium Total Bilirubin AST ALT Alkaline Phosphatase Total Protein Albumin Globulin Albumin/Globulin Ratio Procalcitonin [facility] Medical History Allergic rhinosinusitis Anxiety Arthritis Asbestos exposure Burn Centrilobular emphysema Chronic pain syndrome COPD (chronic obstructive pulmonary disease) Depression Easy bruisability Facet arthropathy, lumbar Hyperlipidemia Lower urinary tract symptoms (LUTS) Lumbar radiculopathy Persistent asthma Rhinosinusitis Spondylolisthesis at L4-L5 level Surgical History History of carpal tunnel surgery of left wrist History of carpal tunnel surgery of right wrist History of tonsillectomy and adenoidectomy History 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 History of vasectomy Hx of nasal sinusotomy Family History (Updated 07/19/22 @ 06:58 by RICCARDO Arrieta) Father No problems noted. Grandfather No problems noted. Social History household members: spouse Smoking Status: Former smoker alcohol intake: never Assessment & Plan Post-op Assessment and plan (1) S/P lumbar fusion: Assessment and Plan narrative: Slow progress w/ PT, will likely need SNF. (2) COPD (chronic obstructive pulmonary disease): Assessment and Plan narrative: CTA negative for PE. (3) Emesis: Assessment and Plan narrative: Appreciate hospitalist help with this patient. Discharge pending medical clearance, PT recommendations, CM placement. Postoperative Procedures: Procedures Operation Date: 04/26/22 12:45 <No data on this case meets the specified criteria> Operation Date: 07/17/22 12:45 Actual Procedure Side Surgeon p L4-5 TLIF Not Applicable Jaden Day MD Postoperative day: 2 Quality VTE Deep Vein Thrombosis/Pulmonary Embolism Present on Admission: No
--- NOTE | 2022-07-19 09:40 | OT.IPNOTE ---
Pt not feeling well when check on in AM and has had emesis, hold OT treatment at this time.
[2022-07-19] MEDS: IPRATROPIUM 0.5 MG/2.5 ML NEB INH ×4 (10:10→19:22)
[2022-07-19] MEDS: BUDESONIDE 0.5 MG/2 ML NEB INH ×2 (10:10→19:22)
[2022-07-19] MEDS: cefTRIAXone 2,000 MG in SODIUM CHLORIDE 0.9% 100 ML 200 MG IV (10:32)
[2022-07-19] MEDS: DOCUSATE 100 MG CAPSULE PO ×2 (10:33→21:13)
[2022-07-19] MEDS: CHOLECALCIFEROL (VITAMIN D3) 5,000 UNIT TABLET 5000 UNIT PO (10:33)
[2022-07-19] MEDS: AZITHROMYCIN 250 MG TABLET PO (10:33)
[2022-07-19] MEDS: FLUoxetine 20 MG CAPSULE PO (10:33)
--- NOTE | 2022-07-19 10:36 | PT-IP ANOTE ---
Pt on hold per nursing. Vomiting blood and lethargic. Will continue to assess pt's situation and appropriateness for PT.
--- NOTE | 2022-07-19 11:38 | PC.NURSE ---
Addendum entered by Elvira Solano R.N. 07/19/22 16:56: Patient asked for oxycodone earlier, 10mg given and he has been more comfortable. He had an emesis down in the ct procedure. Patient has not had any emesis up here today. Original Note: Assess- Patient is alert and oriented x3 but sleepy. His incision and dressing to lower back is cdi. Patient has not been out of bed with therapy today. He has not had any emesis but he does have some thick sputum that he coughed up. This was a brownish color. Patient is to groggy to give narcotics to at this time, will give him some tylenol when he wakes up more. CMS wnl, patients breath sounds with wheezes in the upper lobes, he is on 1l and satting 94%
--- NOTE | 2022-07-19 12:09 | CM.DPC ---
Addendum entered by Anne-Marie Brock R.N. 07/19/22 15:00: Met with patient's spouse, Melanie, in the room. Introduced self and role. She is hoping that her can go to one of the residential facilities in [facility], for she lives there. Let her know that the barrier is a planned back surgery, and [facility] may not auth. Did, however, let her know that since patient has had some clinical complication, have been in touch with [facility] telephonic case manager, who is having their provider look at. Spouse indicted, she has her own health problems, just got over pneumonia, has back problems. Went over the Medicare.[employer] websites, her first choice is [facility], second, [facility], and [facility] as third choice. She stated, if [facility] does not cover, will appeal. TIARRA Martinez employment legal assistant, faxed over referrals to [facility], and both [facility]. This DC Radio Frequency Technician left message with Fatmata at [employer] about possible referral, spoke to Doretha at [facility] and updated her, and left message with [facility]. Rubina [facility] telephonic case manager is having their provider review. Original Note: DCP Cont: It is noted that patient had hematemesis last night. Hospitalist indicated during team rounds that patient could possibly have aspiration pneumonia. Yesterday, had sent clinical notes to [facility], before this episode occurred, and Sara Bocanegra, [facility] telephonic case manager sent it to the provider to review. Went ahead and faxed over today's consultation with ASSISTANT MERCHANDISE MANAGER, and chest x-ray. Called over at [facility]. Sara Bocanegra is out on medical leave until July, but was able to speak to Rubina Baez. She stated that she will look for the notes faxed today, and will review for possiblity of patient needing residential. At this time, patient is weak, uncertain how much he can work with P.T. today. Rubina also indicated that Hollie Kaba is in for Sara Bocanegra today. P: DCP to continue to follow. Patient may need residential. If he does get authorized, will need to discuss further with patient, and with his permission, with spouse, as well. Anne-Marie Brock RN/Telephonic Case Manager
[2022-07-19] MEDS: OXYCODONE IR 10 MG TABLET PO (13:51)
--- NOTE | 2022-07-19 14:13 | OT.IPNOTE ---
Pt refusing to have OT this PM as states has been vomiting and not feeling well. To check on the pt tomorrow.
[2022-07-19 14:27] LABS: Influenza A - CEPHEID Flu A NEGATIVE (NEGATIVE); Influenza B - CEPHEID Flu B NEGATIVE (NEGATIVE); Respiratory Syncytial Virus Negative (Negative)
[2022-07-19 14:28] LABS: COVID-19 CEPHEID 4-PLEX PCR Negative (Negative)
--- NOTE | 2022-07-19 15:06 | PT-IP ANOTE ---
Pt refused in afternoon stating he felt too sick and was vomiting up blood. Will check back in the morning.
[2022-07-19] MEDS: SENNOSIDES 8.6 MG TABLET 17.2 MG PO (21:13)
[2022-07-19] MEDS: ATORVASTATIN 20 MG TABLET PO (21:13)
[2022-07-19] MEDS: guaiFENesin ER 600 MG TAB PO (21:13)
[2022-07-19] MEDS: TAMSULOSIN 0.4 MG CAPSULE 0.8 MG PO (21:14)
[2022-07-19] MEDS: MONTELUKAST 10 MG TABLET PO (21:14)
[2022-07-19] MEDS: hydrOXYzine pamoate 25 MG CAPSULE PO (21:26)
[2022-07-20] VITALS (10 sets, daily range): BP systolic 121–172; BP diastolic 70–93; PULSE 70–85; RESP 16–20; TEMP 36.3–37; O2SAT 89–96
[2022-07-20] MEDS: BUDESONIDE 0.5 MG/2 ML NEB INH ×2 (07:58→21:09)
[2022-07-20] MEDS: IPRATROPIUM 0.5 MG/2.5 ML NEB INH ×2 (07:58→21:09)
[2022-07-20] MEDS: DOCUSATE 100 MG CAPSULE PO ×2 (08:19→21:29)
[2022-07-20] MEDS: FLUoxetine 20 MG CAPSULE PO (08:19)
[2022-07-20] MEDS: cefTRIAXone 2,000 MG in SODIUM CHLORIDE 0.9% 100 ML 200 MG IV (08:19)
[2022-07-20] MEDS: guaiFENesin ER 600 MG TAB PO ×2 (08:19→21:30)
[2022-07-20] MEDS: ONDANSETRON 4 MG/2 ML INJ IV (09:05)
[2022-07-20 09:14] LABS: Add Manual Diff / Slide Review NO; Basophils Absolute Auto 0 /uL (0-100); Basophils Percent Auto 0.2 % (0-2); Eosinophils Absolute Auto 0 /uL (0-450); Hematocrit 37.6 % (41-53); Hemoglobin 12.5 g/dL (13.5-17.5); Lymphocytes Absolute Auto 800 /uL (1100-4500); Lymphocytes Percent Auto 8.4 % (25-40); Mean Corpuscular HGB Conc 33.3 % (30-36); Mean Corpuscular Hemoglobin 30.7 PG (26-34); Mean Corpuscular Volume 92.2 fL (80-100); Monocytes Absolute Auto 1100 /uL (0-900); Monocytes Percent Auto 11.1 % (3-14); Neutrophils Absolute Auto 7700 /uL (1500-7000); Neutrophils Percent Auto 80.3 % (50-75); Platelet Count 147 X10^3/uL (150-400); Red Blood Cell Count 4.07 X10^6/uL (4.5-5.9); Red Cell Distribution Width 14.5 % (11.6-14.8); White Blood Cell Count 9.7 X10^3/uL (4.5-11.0)
[2022-07-20 09:34] LABS: Blood Urea Nitrogen 28 mg/dL (9-20); Calcium 8.4 mg/dL (8.4-10.2); Carbon Dioxide 29 mmol/L (22-32); Chloride 97 mmol/L (98-107); Estimated Glomerular Filt Rate 57 mL/min (>60); Glucose 115 mg/dL (80-110); HEMOLYSIS < 15 (0-50); Magnesium 2.1 mg/dL (1.6-2.3); Sodium 134 mmol/L (137-145)
--- NOTE | 2022-07-20 10:34 | PM.PNPO.1 ---
Subjective Subjective Date Patient Seen: 07/20/22 Time Patient Seen: 10:35 Interval history: Patient denies back pain. No fever chills. No shortness of breath or chest pain. Patient states he is nauseous. Otherwise without complaints. Exam Vital Signs (past 8 hours): - 07/20/22 05:42 07/20/22 07:58 07/20/22 08:05 Temperature 97.7 F Pulse Rate 82 74 78 Respiratory Rate 16 18 18 Blood Pressure 172/87 H Pulse Oximetry 95 93 Oxygen Delivery Method Nasal Cannula Oxygen Flow Rate 2 1 07/20/22 08:32 Temperature 98.3 F Pulse Rate 82 Respiratory Rate 16 Blood Pressure 160/85 H Pulse Oximetry 95 Oxygen Delivery Method Oxygen Flow Rate 2 Oxygen Delivery Method Nasal Cannula Oxygen Flow Rate 2 Narrative Exam Narrative: 82-year-old male resting comfortably in bed in no apparent distress. Patient receiving 2 L oxygen per nasal cannula. Motor functions intact bilateral lower extremities. Sensation grossly intact to light touch bilateral lower extremities. Const General: cooperative and comfortable Nutritional Appearance: average body habitus Orientation: alert Resp Effort & Inspection: normal respiratory effort and able to speak in complete sentences Objective Imaging CT angio chest PE protocol July 19, 2022: Radiologist's impression: IMPRESSION:? 1. No pulmonary embolus. 2. Dependent mucous plugging within the lower lobes, with associated bronchial thickening.? Findings could represent COPD exacerbation, aspiration or respiratory bronchiolitis. 3. Circumferential thickening of the mid to lower esophagus.? Findings suggestive of esophagitis, less likely malignancy.? Labs 07/20/22 08:55 07/20/22 08:55 Labs: Laboratory Results - last 24 hr 07/19/22 07/20/22 07/20/22 13:40 08:55 08:55 WBC 9.7 RBC 4.07 L Hgb 12.5 L Hct 37.6 L MCV 92.2 MCH 30.7 MCHC 33.3 RDW 14.5 Plt Count 147 L Neut % (Auto) 80.3 H Lymph % (Auto) 8.4 L [place] % (Auto) 11.1 Eos % (Auto) 0.0 L Baso % (Auto) 0.2 Neut # (Auto) 7700 H Lymph # (Auto) 800 L [place] # (Auto) 1100 H Eos # (Auto) 0 Baso # (Auto) 0 Sodium 134 L Potassium 4.0 Chloride 97 L Carbon Dioxide 29 BUN 28 H Creatinine 1.27 H Estimated GFR 57 L BUN/Creatinine Ratio 22.0 Glucose 115 H Calcium 8.4 Magnesium 2.1 SARS-CoV-2 (PCR) Negative Influenza A (RT-PCR) Flu a negative Influenza B (RT-PCR) Flu b negative RSV (PCR) Negative PFSH Medical History Allergic rhinosinusitis Anxiety Arthritis Asbestos exposure Burn Centrilobular emphysema Chronic pain syndrome COPD (chronic obstructive pulmonary disease) Depression Easy bruisability Facet arthropathy, lumbar Hyperlipidemia Lower urinary tract symptoms (LUTS) Lumbar radiculopathy Persistent asthma Rhinosinusitis Spondylolisthesis at L4-L5 level Surgical History History of carpal tunnel surgery of left wrist History of carpal tunnel surgery of right wrist History of tonsillectomy and adenoidectomy History 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 History of vasectomy Hx of nasal sinusotomy Family History Father No problems noted. Grandfather No problems noted. Social History household members: spouse Smoking Status: Former smoker alcohol intake: never Assessment & Plan Post-op Postoperative Procedures: Procedures Operation Date: 04/26/22 12:45 <No data on this case meets the specified criteria> Operation Date: 07/17/22 12:45 Actual Procedure Side Surgeon p L4-5 TLIF Not Applicable Jaden Day MD Postoperative day: 3 Postoperative status narrative: Stable Hospitalist consulted July 19, 2022 for hematemesis. Postoperative plan narrative: Mobilize with physical therapy, limit bending, twisting, lifting. Unable to participate in physical therapy yesterday due to nausea and vomiting Multimodal pain management Hospitalist following for hematemesis, CHER, acute, present on consult, COPD, chronic present on admission Discharge to [facility] facility when stable per hospitalist. Quality VTE Deep Vein Thrombosis/Pulmonary Embolism Present on Admission: No
--- NOTE | 2022-07-20 12:04 | OT.IP.TRT ---
Current Diagnoses Chronic obstructive pulmonary disease, unspecified (07/17/22) Spondylolisthesis, lumbar region (07/17/22) Spinal stenosis, lumbar region with neurogenic claudication (07/17/22) Vomiting, unspecified (07/17/22) Arthrodesis status (07/17/22) Surgery Performed Operation Date: 04/26/22 12:45 <No data on this case meets the specified criteria> Operation Date: 07/17/22 12:45 Actual Procedures p L4-5 TLIF(Not Applicable) - Jaden Day MD Occupational Therapy Treatment Note M2 OT-IP Current Condition Start: 07/18/22 12:49 Freq: Status: Active Protocol: Document 07/18/22 12:49 [facility] (Rec: 07/18/22 13:19 [facility] [id number]) Occupational Therapy Current Condition Current Condition Evaluation Date 07/18/22 Treatment Diagnosis S/P L4-5 TLIF Diagnosis Onset Date 07/17/22 M3 OT- IP Subjective and Pain Start: 07/18/22 12:49 Freq: Status: Active Protocol: Document 07/20/22 12:04 [facility] (Rec: 07/20/22 13:16 [facility] [id number]) OT- Subjective Occupational Therapy Visit Type Type Treatment Note Visit Start Time 12:04 Visit Stop Time 12:30 Total Visit Minutes 26 Occupational Therapy Visit Comments Patient Comments Pt agreed to get up to the recliner for lunch. Patient/Caregiver Goals TO get better and open to going to skilled rehab. OT Pain Assessment Pain When Pain Assessed During Mobility Pain Present Pain Present Pain Reported Location low back, right leg Intensity 7 Scale Used Numeric (0 - 10) M4 OT- IP ADL's Start: 07/18/22 12:49 Freq: Status: Active Protocol: Document 07/20/22 12:04 [facility] (Rec: 07/20/22 13:16 [facility] [id number]) OT [id number] Comments OT Self-Feeding Comments Not at meal time. OT ADL-Grooming General Evaluation Grooming Ability Standby Assistance Areas Needing Assistance Retrieving/Set-up of Grooming Items Comments OT Grooming Comments while seated at the edge of the bed OT ADL-Oral Care General Eval Oral Care Ability Independent Comments Oral Care Comments Pt able to swish his mouth with mouth wash. OT ADL-Dressing Comments OT Dressing Comments Pt will still need MAXA for bed mobility needs. OT ADL-Toileting Comments OT Toileting Comments Avina in place OT ADL-Bathing Comments OT Bathing Comments Sponge bath more appropriate at this time. M5 OT- IP IADL's Start: 07/18/22 12:49 Freq: Status: Active Protocol: Document 07/18/22 12:49 [facility] (Rec: 07/18/22 13:19 [facility] [id number]) OT-Instrumental Activities of Daily Living Deficits IADL Deficits Identified Deficits Home Safety Awareness Awareness of Need for Assistance at Home Good Awareness Ability to Problem Solve Emergency Able to Problem Solve Situations M6 OT- IP Functional Cognition Start: 07/18/22 12:49 Freq: Status: Active Protocol: Document 07/20/22 12:04 [facility] (Rec: 07/20/22 13:16 [facility] [id number]) Cognitive Factors Limiting Selfcare Function Cognitive Comments Cognitive Assessment Comments Pt needing cues to follow for hand placement on the FWW and cues for safety of log rolling and coming up to stand. M7 OT- IP Mobility and Balance Start: 07/18/22 12:49 Freq: Status: Active Protocol: Document 07/20/22 12:04 [facility] (Rec: 07/20/22 13:16 [facility] [id number]) OT- Bed Mobility Assessment Supine to Sit Supine to Sit Assist Maximum Assistance,1 Person Assistance OT-Transfer Assessment Sit to and From Stand Sit to and from Stand Maximum Assistance,2 Person Assistance Transfers Transfer Ability Minimal Assistance,2 Person Assistance Technique Transfer Destination Bed,Chair Transfer Technique Stand Step Pivot Devices Transfer Assistive Devices Gait Belt,Front Wheeled Walker Comments Mobility Comments MAX A x1for bed mobility, MAXA x2 to stand to FWW and CLEMENTINA x2 wih FWW to transfer to the recliner. Pt having pain and requesting pain medications. OT- Balance Assessment Sitting Balance and Reactions Static Sitting Balance Ability Fair Dynamic Sitting Balance Ability Poor Standing Balance and Reactions Static Standing Balance Ability Poor Dynamic Standing Balance Ability Poor M9 OT- IP Assessment and Plan Start: 07/18/22 12:49 Freq: Status: Active Protocol: Document 07/20/22 12:04 [facility] (Rec: 07/20/22 13:16 [facility] [id number]) OT Summary Assessment and Plan Potential Rehabilitation Potential Good Analytic Complexity at Evaluation Low Summary OT Impairments Pain,Balance,Functional Mobility,Dressing,Toileting, Bathing,Toilet Transfers, Shower Transfers,Activity Tolerance Progress Towards Goals Slow Progress due to Medical Issues,Slow Progress due to Activity Tolerance Assessment Summary Pt needing encouragement to get up and still needing MAX AX 2 to stand to the FWW. Once on his feet moves a little better CLEMENTINA x2 to step to the recliner. Pt now having medical issues of hematemesis and will greatly benefit from skilled rehab when medically stable. Goals Grooming Goal Independent Dressing Goal Minimal Assistance Toileting Goal Minimal Assistance Bathing Goal Minimal Assistance Toilet Transfer Goal Contact Guard Assistance Shower Transfer Goal Minimal Assistance Days to Meet Goals 20 Frequency of Treatment Frequency Of Treatment Once a Day Treatment Plan OT Treatment Plan ADL Training,Functional Mobility,Patient/Family Education,Discharge Planning Other Treatment Recommendations and Next bookbinder apprentice front of the sink for Treatment Focus grooming needs with FWW. Discharge Recommendations OT Discharge Recommendations SNF Rehab Transportation Needs at Discharge Wheelchair/Cabulance
--- NOTE | 2022-07-20 12:32 | PT.IPTN ---
Current Diagnoses Chronic obstructive pulmonary disease, unspecified (07/17/22) Spondylolisthesis, lumbar region (07/17/22) Spinal stenosis, lumbar region with neurogenic claudication (07/17/22) Vomiting, unspecified (07/17/22) Arthrodesis status (07/17/22) Surgery Performed Operation Date: 04/26/22 12:45 <No data on this case meets the specified criteria> Operation Date: 07/17/22 12:45 Actual Procedures p L4-5 TLIF(Not Applicable) - Jaden Day MD Physical Therapy Treatment Note M2 PT-IP Current Condition Start: 07/18/22 12:30 Freq: NEEDED Status: Active Protocol: Document 07/20/22 12:03 SP (Rec: 07/20/22 14:16 SP [id number]) Physical Therapy Current Condition Current Condition Evaluation Date 07/18/22 Treatment Diagnosis s/p L4-5 TLIF; difficulty in walking Onset Date 07/17/22 M3 PT-IP Subjective Start: 07/18/22 12:30 Freq: NEEDED Status: Active Protocol: Document 07/20/22 12:03 SP (Rec: 07/20/22 14:16 SP [id number]) Subjective Physical Therapy Visit Type Type Treatment Note Visit Start Time 12:03 Visit Stop Time 12:32 Total Visit Minutes 29 Notes Co Tx with OT. Vitals: supine BP 150 /77 HR 76 SaO2 95% on 2L post mobility seated in chair: BP 154/83 HR 83 SaO2 90-94 on RA. Provided supplimental O2 for comfort breath, seemed little SOB and improved SaO2 high 90s. Number of CLAIM MANAGER Visits 1 Physical Therapy Visit Comments Patient Comments Pt willing to work with therapies when returned 2nd attempt early pm. Therapy Pain Assessment Pain When Pain Assessed During Mobility Pain Present Pain Present Pain Reported Location low back, right leg Intensity 7 Scale Used 4/10 rest, 7/10 with mobility Description With Movement Pain Behaviors Facial Grimacing,Guarding, Restlessness,Wincing Pain Management Techniques Distraction,Modification of Treatment,Re-positioning M4 PT-IP Mobility and Gait Start: 07/18/22 12:30 Freq: NEEDED Status: Active Protocol: Document 07/20/22 12:03 SP (Rec: 07/20/22 14:16 SP [id number]) PT-Bed Mobility Assessment Rolling Type of Rolling Log Rolling,Roll to Right Level of Assist Minimal Assistance,Moderate Assistance,1 Person Assistance Supine to Sit Supine to Sit Maximum Assistance,1 Person Assistance,Bedrails Scooting Scooting to Edge of Bed Minimal Assistance PT-Transfer Assessment Sit to and From Stand Sit to and from Stand Maximum Assistance,2 Person Assistance,Use of Upper Extremities Equipment Transfer Assistive Device Gait Belt,Front Wheeled Walker Orthotic/Prosthetic Devices or Brace: No Transfers Transfer Destination Chair Transfer Technique Stand Step Pivot Transfer Ability Level of Assist Minimal Assistance,2 Person Assistance Comments Mobility Comments Nursing identified NPO. Pt required cues for LR technique , Min/ Mod A ed bend knees LR with shoulder and use bed rail support. R SL>sit Max A x1 trunk righting to sit, Min A scoot to EOB trunk stability retro lean. Seated at EOB approx 10 min for ADLs and nursing dressing change Min A at back>SBA. STS Max A x2 come to stand cues proper hand placement from bed to FWW. Once in standing able wt shift w/ FWW Mod/heavy BUE on FWW. SPT bed>chair Min A x2 w/FWW. PT [place] unable to complete flat foot, pt states is his baseline tight achilles. Cues back up full and reach back Min A x2 descend sit in chair, scoot back in chair SBA. CLAIM MANAGER elevated BLEs and provided pillow support and all needs in reach before left. Gait Assessment Gait Gait Assistance Required: Minimum Assistance,2 Person Assist Distance (Feet) 2 Able to Maintain Weight Bearing Status Yes During Gait Assistive Devices Assistive Device Gait Belt,Front Wheeled Walker Orthotic/Prosthetic Devices or Brace: No Gait Deviations General Gait Pattern Antalgic,Decreased Stride Length,Decreased Feet Clearance,Step-to Gait Factors Limiting Gait Function Factors Limiting Gait Function Decreased Activity Tolerance, Decreased Strength,Difficulty Following Directions,Limited Range of Motion,Pain,Poor Balance,Poor Safety Awareness Comments Gait Comments see mobility comments Stair Climbing Assessment Comments Stair Climbing Comments Unable to assess, has 2 steps to kitchen once inside level enterance for safe return home . PT-Balance Assessment Sitting Balance and Reactions Static Sitting Balance Ability Fair Dynamic Sitting Balance Ability Poor Standing Balance and Reactions Static Standing Balance Ability Fair Dynamic Standing Balance Ability Poor Device Used FWW M5 PT-IP Objective Assessments Start: 07/18/22 12:30 Freq: NEEDED Status: Active Protocol: Document 07/18/22 09:10 AB (Rec: 07/18/22 12:45 AB [id number]) Orientation Orientation/Cognition Level of Alertness Alert Orientation Name,Place,Situation Language Function Ability Hard of Hearing Safety Awareness Decreased Safety Awareness Memory Description Short Term Impaired Gross Range of Motion Lower Extremity ROM Assessment Within Functional Limits Strength Lower Extremity Strength Hip 4-/5 Knee 4-/5 Sensation Assessment Sensation Gross Sensation WNL Muscle Tone Muscle Tone WNL Yes M6 PT-IP Treatment Start: 07/18/22 12:30 Freq: NEEDED Status: Active Protocol: Document 07/20/22 12:03 SP (Rec: 07/20/22 14:16 SP [id number]) Physical Therapy Treatment Exercises Exercises Ankle Pumps,Heel Slides Education Education Provided Weight Bearing Status,Safety M7 PT-IP Assessment and Plan Start: 07/18/22 12:30 Freq: NEEDED Status: Active Protocol: Document 07/20/22 12:03 SP (Rec: 07/20/22 14:16 SP [id number]) PT Summary Assessment and Plan Potential Rehabilitation Potential Fair Status of Condition at Evaluation Evolving Summary Impairments Pain,ROM,Strength,Balance, Coordination,Sensation,Tone, Cognition,Bed Mobility, Transfers,Gait,Activity Tolerance Progress Towards Goals Slow Progress due to Pain,Slow Progress due to Activity Tolerance Assessment Summary Pt requiring Max A x1 bed mob, Max Ax2 STS and Min A x2 SPT bed>chair w/ FWW. Pt will require SNF for progression strength and mobility. Spouse is unable to assist pt. Goals Bed Mobility Goal Standby Assistance Transfer Goal Standby Assistance,Front Wheeled Walker Gait Goal Standby Assistance,Front Wheel Walker Gait Distance 75 Other Goals up/down 2 steps without AD/ least restrictive AD SBA Days to Meet Goals 10 Frequency of Treatment Frequency Of Treatment Twice a Day Treatment Plan Physical Therapy Treatment Plan Bed Mobility Training,Transfer Training,Gait Training, Therapeutic Exercise,Balance Retraining,Post Op Education, Discharge Planning,Hot or Cold Pack,Neuromuscular Re-ed, Coordination Retraining,Manual Therapy Other Recommendations and Next Treatment bedmob, transfers, further Focus distance gait w/FWW PT chair follow. Encourage up with nursing transfers, BSC. Precautions Lumbar Precautions Log Roll,No Twisting,Limit Bending,Lifting Restriction of 10 lbs,Gait Belt above Incisional Area Other Precautions falls Recommendations To Nursing Amount of Assist Needed 2 Person Assist Discharge Recommendations PT Discharge Recommendations SNF Rehab Transportation Needs at Discharge Wheelchair/Cabulance
[2022-07-20] MEDS: OXYCODONE IR 10 MG TABLET PO ×3 (12:35→21:30)
--- NOTE | 2022-07-20 14:00 | CM.DPC ---
DCP: This CM left a VM for Hollie Kaba who is actually covering today for Sara Bocanegra/Rubina Baez, . at [place] for Authorization anticipation for this pt for SNF placement. Faith Roblero RN Case Manager
--- NOTE | 2022-07-20 14:51 | PM.PN.1 ---
Subjective Subjective Date Patient Seen: 07/20/22 Interval history: 82 year old male admitted after lumbar spinal fusion. Course was complicated by acute respiratory failure, fever and possible hematemesis (vs hemoptysis). CT angio showed mucous plugging in the bilateral bases, and esophageal thickening. H/h down slightly but no further episodes since yesterday. Does complain of continued nausea and hip pain. Exam Vital Signs (past 8 hours): - 07/20/22 07:58 07/20/22 08:05 07/20/22 08:32 Temperature 98.3 F Pulse Rate 74 78 82 Respiratory Rate 18 18 16 Blood Pressure 160/85 H Pulse Oximetry 93 95 Oxygen Delivery Method Nasal Cannula Oxygen Flow Rate 1 2 07/20/22 12:14 07/20/22 07:15 Temperature 98.6 F Pulse Rate 85 Respiratory Rate 16 Blood Pressure 154/83 H Pulse Oximetry 95 Oxygen Delivery Method Nasal Cannula Oxygen Flow Rate 2 Oxygen Delivery Method Nasal Cannula Oxygen Flow Rate 2 Narrative Exam Narrative: General: Patient is a well-developed, well-nourished in no acute distress at this time, mildly ill appearing. Lungs: Auscultation of all lung culver are clear without adventitious sounds, wheezes, rhonchi, or rales. Cardio: regular rate and rhythm Abdomen: Slightly distended nontender negative for organomegaly, or masses. Bowel sounds are present in all 4 quadrants without guarding or rebound, no CVA tenderness. Skin: Warm dry and intact without rashes, ulcerations or petechiae. Neuro: Alert and orientated x3, strength is +5/5 in all extremities, sensation to touch intact, no gross deficits noted of cranial nerves. Psych: Patient has a well-kept appearance, appropriate affect, mental status attitude thought context and judgment are appropriate for age. Objective Labs 07/20/22 08:55 07/20/22 08:55 Labs: Laboratory Results - last 24 hr 07/20/22 07/20/22 08:55 08:55 WBC 9.7 RBC 4.07 L Hgb 12.5 L Hct 37.6 L MCV 92.2 MCH 30.7 MCHC 33.3 RDW 14.5 Plt Count 147 L Neut % (Auto) 80.3 H Lymph % (Auto) 8.4 L [place] % (Auto) 11.1 Eos % (Auto) 0.0 L Baso % (Auto) 0.2 Neut # (Auto) 7700 H Lymph # (Auto) 800 L [place] # (Auto) 1100 H Eos # (Auto) 0 Baso # (Auto) 0 Sodium 134 L Potassium 4.0 Chloride 97 L Carbon Dioxide 29 BUN 28 H Creatinine 1.27 H Estimated GFR 57 L BUN/Creatinine Ratio 22.0 Glucose 115 H Calcium 8.4 Magnesium 2.1 PFSH Medical History Allergic rhinosinusitis Anxiety Arthritis Asbestos exposure Burn Centrilobular emphysema Chronic pain syndrome COPD (chronic obstructive pulmonary disease) Depression Easy bruisability Facet arthropathy, lumbar Hyperlipidemia Lower urinary tract symptoms (LUTS) Lumbar radiculopathy Persistent asthma Rhinosinusitis Spondylolisthesis at L4-L5 level Surgical History History of carpal tunnel surgery of left wrist History of carpal tunnel surgery of right wrist History of tonsillectomy and adenoidectomy History 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 History of vasectomy Hx of nasal sinusotomy Family History Father No problems noted. Grandfather No problems noted. Social History household members: spouse Smoking Status: Former smoker alcohol intake: never Assessment & Plan Assessment & Plan narrative: Tima Barrow is an 82-year-old male with a medical history of COPD, BPH with obstruction, depression with anxiety, chronic pain syndrome secondary to spondylolisthesis and spinal stenosis of the lumbar. Patient was admitted and is postop day 2 for a lumbar spinal fusion by Dr. Eckert, Dr. Michelle graciously requested that we consult regarding 2 episodes of possible hematemesis vs hemoptysis. Patient has had no further episodes of hematemesis, H&H has been stable but developed fever and hypoxia. 1. Hematemesis vs hemoptysis, x2, acute, s/p 2nd day postop lumbar fusion, present on admission with acute respiratory failure with hypoxia and probable bacterial pneumonia after intubation for surgical procedure. -guaiac-positive emesis. no history of GI bleed patient is not on any anticoagulation. -may have been hemoptysis given mucous plugging. -PPI IV BID as there is some esophageal thickening on CT angio, but if h/h stabilizes can defer to outpatient EGD. -continue ceftriaxone and patients 3x weekly azithromycin for bacterial pneumonia coverage. -CT angio performed as has not been on anticoagulation ppx, was negative but did show b/l Lower lobe mucous plugging which may indicate aspiration or COPD exacerbation. 2. 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 3. Chronic pain syndrome, secondary to spondylolisthesis and spinal stenosis of lumbar, acute on chronic, present on admission -continue patient's Suboxone film tramadol, prednisone -managed by Dr. Arcos's pain management 4. COPD, chronic, present on admission -continue albuterol, Spiriva 5. Depression with anxiety, chronic, present on admission -continue fluoxetine 6. BPH with obstruction LUTS, chronic, present on admission -continue tamsulosin Code status:Full Surrogate decision maker: Melanie PAULINEID PCR:Negative Will continue to follow. Time Spent With Patient Critical Care time: I spent a total of [] minutes of critical care time on this patient's care today; this time is exclusive of procedural time. Quality VTE Deep Vein Thrombosis/Pulmonary Embolism Present on Admission: No
[2022-07-20] MEDS: PANTOPRAZOLE 40 MG VIAL IV ×2 (15:37→21:29)
[2022-07-20] MEDS: hydrOXYzine pamoate 25 MG CAPSULE PO (15:37)
[2022-07-20] MEDS: ACETAMINOPHEN 325 MG TABLET 650 MG PO (15:44)
--- NOTE | 2022-07-20 16:29 | PT.IPTN ---
Current Diagnoses Chronic obstructive pulmonary disease, unspecified (07/17/22) Spondylolisthesis, lumbar region (07/17/22) Spinal stenosis, lumbar region with neurogenic claudication (07/17/22) Vomiting, unspecified (07/17/22) Arthrodesis status (07/17/22) Surgery Performed Operation Date: 04/26/22 12:45 <No data on this case meets the specified criteria> Operation Date: 07/17/22 12:45 Actual Procedures p L4-5 TLIF(Not Applicable) - Jaden Day MD Physical Therapy Treatment Note M2 PT-IP Current Condition Start: 07/18/22 12:30 Freq: NEEDED Status: Active Protocol: Document 07/20/22 16:06 SP (Rec: 07/20/22 17:54 SP [id number]) Physical Therapy Current Condition Current Condition Evaluation Date 07/18/22 Treatment Diagnosis s/p L4-5 TLIF; difficulty in walking Onset Date 07/17/22 M3 PT-IP Subjective Start: 07/18/22 12:30 Freq: NEEDED Status: Active Protocol: Document 07/20/22 16:06 SP (Rec: 07/20/22 17:54 SP [id number]) Subjective Physical Therapy Visit Type Type Treatment Note Visit Start Time 16:06 Visit Stop Time 16:29 Total Visit Minutes 23 Notes Nurse assisted as 2nd person assist during transfer mobility. Number of PUSHER OPERATOR Visits 2 Physical Therapy Visit Comments Patient Comments Pt willing to work with PUSHER OPERATOR to get back into bed. Patient Goals Get stronger to go home. Pt is agreeable to going to SNF. Therapy Pain Assessment Pain When Pain Assessed During Mobility Pain Present Pain Present Pain Reported Location low back, right leg Scale Used Head/neck/back pain horrible, sore Description With Movement Pain Behaviors Facial Grimacing,Guarding, Restlessness,Wincing Pain Management Techniques Distraction,Modification of Treatment,Re-positioning M4 PT-IP Mobility and Gait Start: 07/18/22 12:30 Freq: NEEDED Status: Active Protocol: Document 07/20/22 16:06 SP (Rec: 07/20/22 17:54 SP [id number]) PT-Bed Mobility Assessment Rolling Type of Rolling Log Rolling,Roll to Left Level of Assist Minimal Assistance,1 Person Assistance Sit to Supine Sit to Supine Maximum Assistance,1 Person Assistance,Bedrails PT-Transfer Assessment Sit to and From Stand Sit to and from Stand Maximum Assistance,2 Person Assistance,Use of Upper Extremities Equipment Transfer Assistive Device Gait Belt,Front Wheeled Walker Orthotic/Prosthetic Devices or Brace: No Transfers Transfer Destination Bed Transfer Technique Stand Step Pivot Transfer Ability Level of Assist Minimal Assistance,Moderate Assistance,2 Person Assistance ,Use of Upper Extremities Comments Mobility Comments Pt identified NPO. Completed scoot to edge of chair CGA, STS heavy Max A x2 pushing from chair arms then quick/ heavy transition to FWW. Cued for upright posturing, quad facilitation into full stand. SPT w/ FWW chair>bed Mod A x2 cues for directioning back fully and mariaa step up toward HOB, Mod A x2 slow descent sit on EOB. Sit>LSL>supine Mod/ Max A for trunk and BLE intobed then LR into supine. Pt had calllight , bed alarmed and all needs in reach before left. Recommending SNF for progress strength and functional mobility, can not assist him at home. Gait Assessment Gait Gait Assistance Required: Minimum Assistance,Moderate Assistance,2 Person Assist Distance (Feet) 2 Able to Maintain Weight Bearing Status Yes During Gait Assistive Devices Assistive Device Gait Belt,Front Wheeled Walker Orthotic/Prosthetic Devices or Brace: No Gait Deviations General Gait Pattern Antalgic,Decreased Stride Length,Decreased Feet Clearance,Step-to Gait Factors Limiting Gait Function Factors Limiting Gait Function Decreased Activity Tolerance, Decreased Strength,Difficulty Following Directions,Limited Range of Motion,Pain,Poor Balance,Poor Safety Awareness Comments Gait Comments see mobility comments Stair Climbing Assessment Comments Stair Climbing Comments Unable to assess, has 2 steps to kitchen once inside level enterance for safe return home . PT-Balance Assessment Sitting Balance and Reactions Static Sitting Balance Ability Fair Dynamic Sitting Balance Ability Poor Standing Balance and Reactions Static Standing Balance Ability Poor Dynamic Standing Balance Ability Poor Device Used FWW M5 PT-IP Objective Assessments Start: 07/18/22 12:30 Freq: NEEDED Status: Active Protocol: Document 07/18/22 09:10 AB (Rec: 07/18/22 12:45 AB [id number]) Orientation Orientation/Cognition Level of Alertness Alert Orientation Name,Place,Situation Language Function Ability Hard of Hearing Safety Awareness Decreased Safety Awareness Memory Description Short Term Impaired Gross Range of Motion Lower Extremity ROM Assessment Within Functional Limits Strength Lower Extremity Strength Hip 4-/5 Knee 4-/5 Sensation Assessment Sensation Gross Sensation WNL Muscle Tone Muscle Tone WNL Yes M6 PT-IP Treatment Start: 07/18/22 12:30 Freq: NEEDED Status: Active Protocol: Document 07/20/22 16:06 SP (Rec: 07/20/22 17:54 SP [id number]) Physical Therapy Treatment Education Education Provided Weight Bearing Status,Safety M7 PT-IP Assessment and Plan Start: 07/18/22 12:30 Freq: NEEDED Status: Active Protocol: Document 07/20/22 16:06 SP (Rec: 07/20/22 17:54 SP [id number]) PT Summary Assessment and Plan Potential Rehabilitation Potential Fair Status of Condition at Evaluation Evolving Summary Impairments Pain,ROM,Strength,Balance, Coordination,Sensation,Tone, Cognition,Bed Mobility, Transfers,Gait,Activity Tolerance Progress Towards Goals Slow Progress due to Pain,Slow Progress due to Activity Tolerance Assessment Summary Pt requires Max A x2 for heavy STS w/ FWW, Min/Mod A x2 transfer w/ FWW to bed, Max A for sit>supine. Pt will require SNF increased strength and functional mobility. Will continue to assess progress. Goals Bed Mobility Goal Standby Assistance Transfer Goal Standby Assistance,Front Wheeled Walker Gait Goal Standby Assistance,Front Wheel Walker Gait Distance 75 Other Goals up/down 2 steps without AD/ least restrictive AD SBA Days to Meet Goals 10 Frequency of Treatment Frequency Of Treatment Twice a Day Treatment Plan Physical Therapy Treatment Plan Bed Mobility Training,Transfer Training,Gait Training, Therapeutic Exercise,Balance Retraining,Post Op Education, Discharge Planning,Hot or Cold Pack,Neuromuscular Re-ed, Coordination Retraining,Manual Therapy Other Recommendations and Next Treatment bed mob, trasnfers, gait w/FWW Focus if able chair follow. Encourage up with nursing transfers, BSC. Precautions Lumbar Precautions Log Roll,No Twisting,Limit Bending,Lifting Restriction of 10 lbs,Gait Belt above Incisional Area Other Precautions falls Recommendations To Nursing Amount of Assist Needed 2 Person Assist Discharge Recommendations PT Discharge Recommendations SNF Rehab Transportation Needs at Discharge Wheelchair/Cabulance
[2022-07-20] MEDS: SODIUM CHLORIDE 0.9% FLUSH 10 ML IV (21:25)
[2022-07-20] MEDS: MONTELUKAST 10 MG TABLET PO (21:29)
[2022-07-20] MEDS: ATORVASTATIN 20 MG TABLET PO (21:29)
[2022-07-20] MEDS: TAMSULOSIN 0.4 MG CAPSULE 0.8 MG PO (21:29)
[2022-07-20] MEDS: SENNOSIDES 8.6 MG TABLET 17.2 MG PO (21:29)
[2022-07-21] VITALS (9 sets, daily range): BP systolic 105–137; BP diastolic 64–73; PULSE 69–93; RESP 12–20; TEMP 36.3–37.3; O2SAT 90–93
[2022-07-21 01:57] LABS: Appearance Urine UA CLEAR; Bilirubin Urine UA NEGATIVE (NEGATIVE); Color Urine UA YELLOW; Glucose Urine UA NEGATIVE (Negative); Ketones Urine UA NEGATIVE (NEGATIVE); Leukocyte Esterase Urine UA NEGATIVE (NEGATIVE); Nitrite Urine UA NEGATIVE (Negative); Occult Blood Urine UA 2+ (Negative); Protein Urine UA 1+ (Negative); Specific Gravity Urine UA 1.025 (1.000-1.035); Urobilinogen Urine UA 0.2 E.U./dL (0.2); pH Urine UA 6.5 (4.5-8.0)
[2022-07-21 02:08] LABS: Bacteria Urine None Seen; Culture Indicated Urine Cult Not Indicated; RBC Urine 1-5/HPF (0-5/HPF); WBC Urine 0-1/HPF (0-5/HPF)
[2022-07-21] MEDS: OXYCODONE IR 10 MG TABLET PO ×3 (02:31→10:34)
[2022-07-21] MEDS: BUDESONIDE 0.5 MG/2 ML NEB INH ×2 (06:17→20:04)
[2022-07-21] MEDS: ALBUTEROL 2.5 MG/3 ML NEB (ADULT) INH ×2 (06:18→16:56)
[2022-07-21 06:43] LABS: Hematocrit 35.6 % (41-53); Hemoglobin 11.9 g/dL (13.5-17.5); Mean Corpuscular HGB Conc 33.6 % (30-36); Mean Corpuscular Hemoglobin 30.7 PG (26-34); Mean Corpuscular Volume 91.6 fL (80-100); Platelet Count 162 X10^3/uL (150-400); Red Blood Cell Count 3.88 X10^6/uL (4.5-5.9); Red Cell Distribution Width 14.3 % (11.6-14.8); White Blood Cell Count 10.5 X10^3/uL (4.5-11.0)
[2022-07-21 06:45] LABS: BUN Creatinine Ratio 24.8 (6-22); Blood Urea Nitrogen 31 mg/dL (9-20); Calcium 8.2 mg/dL (8.4-10.2); Carbon Dioxide 30 mmol/L (22-32); Chloride 97 mmol/L (98-107); Estimated Glomerular Filt Rate 58 mL/min (>60); Glucose 90 mg/dL (80-110); HEMOLYSIS < 15 (0-50); Potassium 3.7 mmol/L (3.4-5.1); Sodium 131 mmol/L (137-145)
[2022-07-21 06:46] LABS: Add Manual Diff / Slide Review YES
[2022-07-21 07:51] LABS: Neutrophils Absolute Manual 8715 /uL (3000-5900); Total Cells Counted 100
[2022-07-21 07:52] LABS: Anisocytosis 1+
--- NOTE | 2022-07-21 08:29 | CM.DPC ---
Addendum entered by Samina Victor R.N. 07/21/22 13:25: CM sent PT and OT notes to [facility] network contract manager JANAE for her reivew - she said she should know about the SNF auth in a little while CM team will follow up to determine if patient medically ready for DC and if SNF auth is approved... [facility] stated they maybe able to accept today if auth is received. Samina Victor RN Case manger Addendum entered by Faith Roblero R.N. 07/21/22 08:49: DCP: Sent PT/OT notes to Zina Kaba for [facility] review as pt has been accepted to [facility] for a Potential admission on Sunday 07/23. Original Note: DCP: Received a call from Doretha at [facility] who can accept pt on Sunday. This CM called Doretha back and left a VM letting her know that we are awaiting a [facility] Auth and pt was able to work with therapy yesterday and so I am forwarding therapy notes to [facility] for review. Spoke with Kim in OT who will touch base with the team to make this am a priority for PT/OT in order to attempt to get [facility] auth today. Faxed PT/OT notes from yesterday to [facility]. Faith Roblero RN Case Manager
[2022-07-21] MEDS: cefTRIAXone 2,000 MG in SODIUM CHLORIDE 0.9% 100 ML 200 MG IV (08:46)
[2022-07-21] MEDS: hydrOXYzine pamoate 25 MG CAPSULE PO ×2 (08:46→13:52)
[2022-07-21] MEDS: FLUoxetine 20 MG CAPSULE PO (08:46)
[2022-07-21] MEDS: ACETAMINOPHEN 325 MG TABLET 650 MG PO ×2 (08:46→16:38)
[2022-07-21] MEDS: AZITHROMYCIN 250 MG TABLET PO (08:46)
[2022-07-21] MEDS: DOCUSATE 100 MG CAPSULE PO ×2 (08:46→20:54)
[2022-07-21] MEDS: polyethylene glycoL 3350 17 GM POWD.PACK PO (08:47)
[2022-07-21] MEDS: guaiFENesin ER 600 MG TAB PO ×2 (09:12→20:54)
[2022-07-21] MEDS: PANTOPRAZOLE 40 MG VIAL IV (09:12)
[2022-07-21] MEDS: SODIUM CHLORIDE 0.9% FLUSH 10 ML IV (09:12)
[2022-07-21] MEDS: IPRATROPIUM 0.5 MG/2.5 ML NEB INH ×3 (11:01→20:04)
--- NOTE | 2022-07-21 11:07 | OT.IP.TRT ---
Current Diagnoses Chronic obstructive pulmonary disease, unspecified (07/17/22) Spondylolisthesis, lumbar region (07/17/22) Spinal stenosis, lumbar region with neurogenic claudication (07/17/22) Vomiting, unspecified (07/17/22) Arthrodesis status (07/17/22) Surgery Performed Operation Date: 04/26/22 12:45 <No data on this case meets the specified criteria> Operation Date: 07/17/22 12:45 Actual Procedures p L4-5 TLIF(Not Applicable) - Jaden Day MD Occupational Therapy Treatment Note M2 OT-IP Current Condition Start: 07/18/22 12:49 Freq: Status: Active Protocol: Document 07/18/22 12:49 [facility] (Rec: 07/18/22 13:19 [facility] [id number]) Occupational Therapy Current Condition Current Condition Evaluation Date 07/18/22 Treatment Diagnosis S/P L4-5 TLIF Diagnosis Onset Date 07/17/22 M3 OT- IP Subjective and Pain Start: 07/18/22 12:49 Freq: Status: Active Protocol: Document 07/21/22 11:09 [facility] (Rec: 07/21/22 11:15 [facility] [id number]) OT- Subjective Occupational Therapy Visit Type Visit Start Time 10:35 Visit Stop Time 11:07 Total Visit Minutes 32 Occupational Therapy Visit Comments Patient Comments Pt agreed to get up. Patient/Caregiver Goals To go to skilled rehab. OT Pain Assessment Pain When Pain Assessed At Rest Pain Present Pain Present Denied Pain M4 OT- IP ADL's Start: 07/18/22 12:49 Freq: Status: Active Protocol: Document 07/21/22 11:09 [facility] (Rec: 07/21/22 11:15 [facility] [id number]) OT [id number] Comments OT Self-Feeding Comments Not at meal time. OT ADL-Grooming General Evaluation Grooming Ability Standby Assistance Areas Needing Assistance Retrieving/Set-up of Grooming Items Comments OT Grooming Comments while seated OT ADL-Oral Care General Eval Oral Care Ability Independent Comments Oral Care Comments Pt able to swish his mouth with mouth wash. OT ADL-Dressing General Eval Lower Body Dressing Ability Maximum Assistance Areas Needing Assistance Socks OT ADL-Toileting Comments OT Toileting Comments external catheter in place OT ADL-Bathing General Evaluation Bathing Ability Moderate Assistance,Maximal Assistance Comments OT Bathing Comments Pt needing assist for completeness for pericare needs and assist for LB and his back. Pt's bed soaked as external catheter was not attached, notified nursing of wet/soiled bandage which needing to be replaced. M5 OT- IP IADL's Start: 07/18/22 12:49 Freq: Status: Active Protocol: Document 07/18/22 12:49 [facility] (Rec: 07/18/22 13:19 [facility] [id number]) OT-Instrumental Activities of Daily Living Deficits IADL Deficits Identified Deficits Home Safety Awareness Awareness of Need for Assistance at Home Good Awareness Ability to Problem Solve Emergency Able to Problem Solve Situations M6 OT- IP Functional Cognition Start: 07/18/22 12:49 Freq: Status: Active Protocol: Document 07/21/22 11:09 [facility] (Rec: 07/21/22 11:15 [facility] [id number]) Cognitive Factors Limiting Selfcare Function Cognitive Comments Cognitive Assessment Comments Pt is very cooperative and able to follow commands well. M7 OT- IP Mobility and Balance Start: 07/18/22 12:49 Freq: Status: Active Protocol: Document 07/21/22 11:09 [facility] (Rec: 07/21/22 11:15 [facility] [id number]) OT- Bed Mobility Assessment Supine to Sit Supine to Sit Assist Moderate Assistance,1 Person Assistance OT-Transfer Assessment Sit to and From Stand Sit to and from Stand Minimal Assistance,Moderate Assistance,1 Person Assistance Transfers Transfer Ability Minimal Assistance,1 Person Assistance Technique Transfer Destination Bed,Chair Transfer Technique Stand Step Pivot Devices Transfer Assistive Devices Gait Belt,Front Wheeled Walker Comments Mobility Comments MODA for bed mobility and MIN to MOD to stand especially from lower surface, Once on his feet able to take some steps with FWW CLEMENT[place]. OT- Balance Assessment Sitting Balance and Reactions Static Sitting Balance Ability Good Dynamic Sitting Balance Ability Fair Standing Balance and Reactions Static Standing Balance Ability Fair Dynamic Standing Balance Ability Poor M9 OT- IP Assessment and Plan Start: 07/18/22 12:49 Freq: Status: Active Protocol: Document 07/21/22 11:09 [facility] (Rec: 07/21/22 11:15 [facility] [id number]) OT Summary Assessment and Plan Potential Rehabilitation Potential Good Analytic Complexity at Evaluation Low Summary OT Impairments Pain,Balance,Functional Mobility,Dressing,Toileting, Bathing,Toilet Transfers, Shower Transfers,Activity Tolerance Progress Towards Goals Progressing Toward Goals Assessment Summary Much improved today and now one person assist for mobility needs. Pt will greatly benefit from skilled rehab. OT goals upgraded below. Goals Grooming Goal Independent Dressing Goal Minimal Assistance Toileting Goal Independent Bathing Goal Minimal Assistance Toilet Transfer Goal Independent Shower Transfer Goal Independent Days to Meet Goals 15 Frequency of Treatment Frequency Of Treatment Once a Day Treatment Plan OT Treatment Plan ADL Training,Functional Mobility,Patient/Family Education,Discharge Planning Other Treatment Recommendations and Next shower Treatment Focus Discharge Recommendations OT Discharge Recommendations SNF Rehab Transportation Needs at Discharge Wheelchair/Cabulance
--- NOTE | 2022-07-21 11:43 | PT.IPTN ---
Current Diagnoses Chronic obstructive pulmonary disease, unspecified (07/17/22) Spondylolisthesis, lumbar region (07/17/22) Spinal stenosis, lumbar region with neurogenic claudication (07/17/22) Vomiting, unspecified (07/17/22) Arthrodesis status (07/17/22) Surgery Performed Operation Date: 04/26/22 12:45 <No data on this case meets the specified criteria> Operation Date: 07/17/22 12:45 Actual Procedures p L4-5 TLIF(Not Applicable) - Jaden Day MD Physical Therapy Treatment Note M2 PT-IP Current Condition Start: 07/18/22 12:30 Freq: NEEDED Status: Active Protocol: Document 07/21/22 11:29 [facility] (Rec: 07/21/22 11:39 [facility] [id number]) Physical Therapy Current Condition Current Condition Evaluation Date 07/18/22 Treatment Diagnosis s/p L4-5 TLIF; difficulty in walking Onset Date 07/17/22 M3 PT-IP Subjective Start: 07/18/22 12:30 Freq: NEEDED Status: Active Protocol: Document 07/21/22 11:29 [facility] (Rec: 07/21/22 11:39 [facility] [id number]) Subjective Physical Therapy Visit Type Type Treatment Note Visit Start Time 10:50 Visit Stop Time 11:11 Total Visit Minutes 21 Notes OT assist with transfer and mobility Number of GANG DRILL PRESS OPERATOR Visits 2 Physical Therapy Visit Comments Patient Comments Patient willing to work with PT, sit up in chair when done. When arrived nursing changing dressing over incision. Patient Goals Get stronger to go home. Pt is agreeable to going to SNF. Therapy Pain Assessment Pain When Pain Assessed At Rest Pain Present Pain Present Denied Pain Location low back, right leg Intensity 4 Pain Behaviors Facial Grimacing,Guarding, Restlessness,Wincing Pain Management Techniques Distraction,Modification of Treatment,Re-positioning M4 PT-IP Mobility and Gait Start: 07/18/22 12:30 Freq: NEEDED Status: Active Protocol: Document 07/21/22 11:29 [facility] (Rec: 07/21/22 11:39 [facility] [id number]) PT-Transfer Assessment Sit to and From Stand Sit to and from Stand Moderate Assistance,2 Person Assistance Equipment Transfer Assistive Device Gait Belt,Front Wheeled Walker Orthotic/Prosthetic Devices or Brace: No Transfers Transfer Destination Bed Transfer Technique ambulated Transfer Ability Level of Assist Minimal Assistance,Moderate Assistance,2 Person Assistance Comments Mobility Comments Patient sitting at EOB when PT arrived. Ther ex while nursing changed bandage: glut sets, LAQ, ankle pumps and circles; 10 reps ea. Stood with min-mod assist of 2. Gait in room 10 ft with FWW and min assist of 1. Gait Assessment Gait Gait Assistance Required: Minimum Assistance,Moderate Assistance,2 Person Assist Distance (Feet) 2 Able to Maintain Weight Bearing Status Yes During Gait Assistive Devices Assistive Device Gait Belt,Front Wheeled Walker Orthotic/Prosthetic Devices or Brace: No Gait Deviations General Gait Pattern Antalgic,Decreased Stride Length,Decreased Feet Clearance,Step-to Gait Factors Limiting Gait Function Factors Limiting Gait Function Decreased Activity Tolerance, Decreased Strength,Difficulty Following Directions,Limited Range of Motion,Pain,Poor Balance,Poor Safety Awareness Stair Climbing Assessment Comments Stair Climbing Comments Unable to assess, has 2 steps to kitchen once inside level enterance for safe return home . PT-Balance Assessment Sitting Balance and Reactions Static Sitting Balance Ability Fair Dynamic Sitting Balance Ability Fair Standing Balance and Reactions Static Standing Balance Ability Fair Dynamic Standing Balance Ability Poor Device Used FWW Comments Other Balance Tests/Deviations/Treatment unable to achieve heelstrike : due to contracture right ankle , toes only M5 PT-IP Objective Assessments Start: 07/18/22 12:30 Freq: NEEDED Status: Active Protocol: Document 07/21/22 11:29 [facility] (Rec: 07/21/22 11:39 [facility] [id number]) Gross Range of Motion Lower Extremity ROM Assessment Right Impaired Impairments lacking full knee extension, and is at least 30 degrees from neutral right ankle Strength Lower Extremity Strength Ankle 3- M6 PT-IP Treatment Start: 07/18/22 12:30 Freq: NEEDED Status: Active Protocol: Document 07/21/22 11:29 [facility] (Rec: 07/21/22 11:39 [facility] [id number]) Physical Therapy Treatment Exercises Exercises Ankle Pumps,Gluteal Sets Other Treatments Other Treatment Performed LAQ, ankle circles M7 PT-IP Assessment and Plan Start: 07/18/22 12:30 Freq: NEEDED Status: Active Protocol: Document 07/21/22 11:29 [facility] (Rec: 07/21/22 11:39 [facility] [id number]) PT Summary Assessment and Plan Potential Rehabilitation Potential Fair Status of Condition at Evaluation Evolving Summary Impairments Pain,ROM,Strength,Balance, Coordination,Sensation,Tone, Cognition,Bed Mobility, Transfers,Gait,Activity Tolerance Progress Towards Goals Slow Progress due to Pain,Slow Progress due to Activity Tolerance Assessment Summary Pt requires min to mod x2 for transfers w/ FWW. Able to ambulate short distance (10ft) this am with FWW and min assist. Mobility limited by pain, weakness, right ankle contrcture. At this time pt will require SNF to increased strength and functional mobility. Will continue to assess progress. Goals Bed Mobility Goal Standby Assistance Transfer Goal Standby Assistance,Front Wheeled Walker Gait Goal Standby Assistance,Front Wheel Walker Gait Distance 75 Other Goals up/down 2 steps without AD/ least restrictive AD SBA Days to Meet Goals 10 Frequency of Treatment Frequency Of Treatment Twice a Day Treatment Plan Physical Therapy Treatment Plan Bed Mobility Training,Transfer Training,Gait Training, Therapeutic Exercise,Balance Retraining,Post Op Education, Discharge Planning,Hot or Cold Pack,Neuromuscular Re-ed, Coordination Retraining,Manual Therapy Other Recommendations and Next Treatment bed mob, trasnfers, gait w/FWW Focus if able chair follow. Encourage up with nursing transfers, BSC. Precautions Lumbar Precautions Log Roll,No Twisting,Limit Bending,Lifting Restriction of 10 lbs,Gait Belt above Incisional Area Other Precautions falls Recommendations To Nursing Amount of Assist Needed 2 Person Assist Discharge Recommendations PT Discharge Recommendations SNF Rehab Transportation Needs at Discharge Wheelchair/Cabulance
--- NOTE | 2022-07-21 13:54 | CM.DPC ---
DCP: Left a VM with SERENA Gee and am awaiting a return call with regard to if pt is medically ready for discharge. This DCP also called Dr. Day's office who is following pt and did not attain an answer. This CM spoke with TIARRA Reeves carpet installation specialist at [place] for [facility] who is out sick and who is reviewing notes for Pre SNF placement Auth, with aniticipation of discharging to either [facility] today if pt is medically stable or to [facility] who can accept patient on Sunday. Faith Roblero, manager electronic
--- NOTE | 2022-07-21 14:48 | PT-IP ANOTE ---
Pt refuses therapy. States he had been sitting in a chair for 1-1/2 hrs and the nursing staff just walked and got back into bed, so too tired to get OOB again or do ankle exercises.
--- NOTE | 2022-07-21 15:57 | PM.PN.1 ---
Subjective Subjective Interval history: 82-year-old gentleman with underlying COPD, BPH with obstruction, depression/anxiety, chronic pain syndrome who is presently postoperative day 4 from a lumbar fusion. Hospitalists were consulted after 2 episodes of hematemesis versus hemoptysis as well as hypoxia. CT angiogram done on July 19 revealed mucous plugging in the bilateral lower lobes with possibility of aspiration noted. Esophagitis was noted as well with some esophageal thickening. Patient has been treated with IV antibiotics empirically with Rocephin and azithromycin. Patient reports he is feeling fairly well today overall. He states his appetite remains decreased. He has been drinking well. He notes he has not had a bowel movement since prior to admission. He states he uses MiraLax at home with good effect. He describes his back as being sore but pain is manageable. Exam Vital Signs (past 8 hours): - 07/21/22 07:58 07/21/22 13:00 07/21/22 12:37 Temperature 97.9 F 97.4 F L Pulse Rate 80 78 70 Respiratory Rate 18 18 18 Blood Pressure 135/72 105/69 Pulse Oximetry 90 L 92 Oxygen Delivery Method Room Air Oxygen Flow Rate 0 0 Oxygen Delivery Method Room Air Oxygen Flow Rate 0 Narrative Exam Narrative: GEN: Pleasant elderly male, Alert and oriented x 3, NAD HEENT:NC, Face symmetric CHEST: Respiratory excursions symmetric, CTAB with mild bibasilar wheezes CV: RRR, no M/R/G ABD: Soft, NT/ND, BT present in all 4 quadrants, no organomegaly or masses EXTR: warm, well perfused, no C/C/E SKIN: warm and dry, no rash NEURO: Alert and oriented x 3, nonfocal Objective Labs 07/21/22 06:12 07/21/22 06:12 Labs: Laboratory Results - last 24 hr 07/21/22 07/21/22 07/21/22 01:50 06:12 06:12 WBC 10.5 RBC 3.88 L Hgb 11.9 L Hct 35.6 L MCV 91.6 MCH 30.7 MCHC 33.6 RDW 14.3 Plt Count 162 Neut % (Auto) Not Reportable Lymph % (Auto) Not Reportable [place] % (Auto) Not Reportable Eos % (Auto) Not Reportable Baso % (Auto) Not Reportable Lymph # (Auto) Not Reportable [place] # (Auto) Not Reportable Baso # (Auto) Not Reportable Total Counted 100 Seg Neutrophils % 81.0 H Band Neutrophils % 2.0 L Lymphocytes % (Manual) 10.0 L Monocytes % (Manual) 7.0 Neutrophils # (Manual) 8715 H RBC Morphology See below Anisocytosis 1+ H Sodium 131 L Potassium 3.7 Chloride 97 L Carbon Dioxide 30 BUN 31 H Creatinine 1.25 Estimated GFR 58 L BUN/Creatinine Ratio 24.8 H Glucose 90 Calcium 8.2 L Urine Color Yellow Urine Appearance Clear Urine pH 6.5 Ur Specific [place] 1.025 Urine Protein 1+ H Urine Glucose (UA) Negative Urine Ketones Negative Urine Occult Blood 2+ H Urine Nitrate Negative Urine Bilirubin Negative Urine Urobilinogen 0.2 Ur Leukocyte Esterase Negative Urine RBC 1-5/hpf Urine WBC 0-1/hpf Urine Bacteria None seen Ur Culture Indicated? Cult not indicated PFSH Medical History Allergic rhinosinusitis Anxiety Arthritis Asbestos exposure Burn Centrilobular emphysema Chronic pain syndrome COPD (chronic obstructive pulmonary disease) Depression Easy bruisability Facet arthropathy, lumbar Hyperlipidemia Lower urinary tract symptoms (LUTS) Lumbar radiculopathy Persistent asthma Rhinosinusitis Spondylolisthesis at L4-L5 level Surgical History History of carpal tunnel surgery of left wrist History of carpal tunnel surgery of right wrist History of tonsillectomy and adenoidectomy History 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 History of vasectomy Hx of nasal sinusotomy Family History Father No problems noted. Grandfather No problems noted. Social History household members: spouse Smoking Status: Former smoker alcohol intake: never Assessment & Plan Assessment & Plan narrative: 1. Hematemesis versus hemoptysis Esophagitis found on CT. Patient is on Protonix 40 mg IV b.i.d.. At discharge can transition to oral Protonix. He is being treated empirically for potential aspiration pneumonia. Remains on Rocephin and azithromycin. He is presently stable on room air. 2. CHER versus CKD 3 Creatinine was 1.33 on admission. It has now improved at 1.25. Likely he had a component of CHER which is resolved. 3. Chronic pain syndrome secondary to spondylolisthesis and spinal stenosis of lumbar spine Patient is on Suboxone, tramadol, prednisone at baseline. He receives meds through the pain clinic. 4. COPD No evidence of exacerbation. Continue albuterol and Spiriva 5. Depression/anxiety Stable. Continue fluoxetine 6. BPH with obstruction Patient remained on Flomax. 7. Normocytic anemia Mild, stable 8. Hyponatremia Mild at 131. Down slightly from 134 yesterday. Will monitor. Code status Full Surrogate decision maker Patient's spouse Prophylaxis No chemical prophylaxis ordered per primary team, work on increasing mobility. Disposition correction facility, possibly on 07/23/2022 pending insurance authorization Time Spent With Patient Critical Care time: I spent a total of [] minutes of critical care time on this patient's care today; this time is exclusive of procedural time. Quality VTE Deep Vein Thrombosis/Pulmonary Embolism Present on Admission: No
--- NOTE | 2022-07-21 19:51 | P.PN_ITS ---
Subjective Subjective Date Patient Seen: 07/21/22 Time Patient Seen: 07:15 Interval history: Patient is sleeping in bed comfortably this morning. He states that his recovery since surgery has not gone very smoothly. He has struggled with pain, which he notes is decently controlled with medication at this point. He continues to have nausea and notes that ondansetron does help. His goal for today is to work with physical therapy. Patient notes his is at home and will not come in until he is set up to discharge to a rehab facility. Exam Vital Signs (past 8 hours): - 07/21/22 13:00 07/21/22 12:37 07/21/22 16:56 Temperature 97.4 F L Pulse Rate 78 70 70 Respiratory Rate 18 18 12 Blood Pressure 105/69 Pulse Oximetry 92 92 Oxygen Delivery Method Room Air Room Air Oxygen Flow Rate 0 07/21/22 16:40 Temperature 98.5 F Pulse Rate 75 Respiratory Rate 18 Blood Pressure 137/73 Pulse Oximetry 92 Oxygen Delivery Method Oxygen Flow Rate 0 Oxygen Delivery Method Room Air Oxygen Flow Rate 0 Narrative Exam Narrative: Awake, alert, and oriented. Strength and sensation intact to bilateral lower extremities. Bilateral calves soft, compressible, nontender with no palpable cords or masses. Intraoperative dressing clean, dry, and intact. Objective Labs 07/21/22 06:12 07/21/22 06:12 Labs: Laboratory Results - last 24 hr 07/21/22 07/21/22 07/21/22 01:50 06:12 06:12 WBC 10.5 RBC 3.88 L Hgb 11.9 L Hct 35.6 L MCV 91.6 MCH 30.7 MCHC 33.6 RDW 14.3 Plt Count 162 Neut % (Auto) Not Reportable Lymph % (Auto) Not Reportable [place] % (Auto) Not Reportable Eos % (Auto) Not Reportable Baso % (Auto) Not Reportable Lymph # (Auto) Not Reportable [place] # (Auto) Not Reportable Baso # (Auto) Not Reportable Total Counted 100 Seg Neutrophils % 81.0 H Band Neutrophils % 2.0 L Lymphocytes % (Manual) 10.0 L Monocytes % (Manual) 7.0 Neutrophils # (Manual) 8715 H RBC Morphology See below Anisocytosis 1+ H Sodium 131 L Potassium 3.7 Chloride 97 L Carbon Dioxide 30 BUN 31 H Creatinine 1.25 Estimated GFR 58 L BUN/Creatinine Ratio 24.8 H Glucose 90 Calcium 8.2 L Urine Color Yellow Urine Appearance Clear Urine pH 6.5 Ur Specific [place] 1.025 Urine Protein 1+ H Urine Glucose (UA) Negative Urine Ketones Negative Urine Occult Blood 2+ H Urine Nitrate Negative Urine Bilirubin Negative Urine Urobilinogen 0.2 Ur Leukocyte Esterase Negative Urine RBC 1-5/hpf Urine WBC 0-1/hpf Urine Bacteria None seen Ur Culture Indicated? Cult not indicated PFSH Medical History Allergic rhinosinusitis Anxiety Arthritis Asbestos exposure Burn Centrilobular emphysema Chronic pain syndrome COPD (chronic obstructive pulmonary disease) Depression Easy bruisability Facet arthropathy, lumbar Hyperlipidemia Lower urinary tract symptoms (LUTS) Lumbar radiculopathy Persistent asthma Rhinosinusitis Spondylolisthesis at L4-L5 level Surgical History History of carpal tunnel surgery of left wrist History of carpal tunnel surgery of right wrist History of tonsillectomy and adenoidectomy History 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 History of vasectomy Hx of nasal sinusotomy Family History Father No problems noted. Grandfather No problems noted. Social History household members: spouse Smoking Status: Former smoker alcohol intake: never Assessment & Plan Post-op Postoperative Procedures: Procedures Operation Date: 04/26/22 12:45 <No data on this case meets the specified criteria> Operation Date: 07/17/22 12:45 Actual Procedure Side Surgeon p L4-5 TLIF Not Applicable Jaden Day MD Postoperative day: 4 Postoperative status narrative: Patient is progressing slowly after surgery. He has not been able to work with physical therapy. Continues to struggle with nausea and pain. Postoperative plan narrative: Plan to discharge to [facility] facility when accepted. Patient is understanding of this plan. He was encouraged to work with physical therapy as able. Quality VTE Deep Vein Thrombosis/Pulmonary Embolism Present on Admission: No
[2022-07-21] MEDS: ATORVASTATIN 20 MG TABLET PO (20:54)
[2022-07-21] MEDS: MONTELUKAST 10 MG TABLET PO (20:54)
[2022-07-21] MEDS: TAMSULOSIN 0.4 MG CAPSULE 0.8 MG PO (20:54)
[2022-07-21] MEDS: SENNOSIDES 8.6 MG TABLET 17.2 MG PO (20:54)
[2022-07-21] MEDS: PANTOPRAZOLE DR 40 MG TABLET PO (20:56)
[2022-07-22] VITALS (7 sets, daily range): BP systolic 106–150; BP diastolic 71–80; PULSE 62–78; RESP 14–19; TEMP 36.6–38; O2SAT 91–93
[2022-07-22] MEDS: OXYCODONE IR 10 MG TABLET PO ×3 (01:40→18:51)
[2022-07-22] MEDS: ACETAMINOPHEN 325 MG TABLET 650 MG PO ×2 (01:41→11:45)
[2022-07-22] MEDS: ONDANSETRON 4 MG ODT SL (05:24)
[2022-07-22] MEDS: PANTOPRAZOLE DR 40 MG TABLET PO ×2 (06:57→21:09)
[2022-07-22] MEDS: BUDESONIDE 0.5 MG/2 ML NEB INH (08:20)
[2022-07-22] MEDS: IPRATROPIUM 0.5 MG/2.5 ML NEB INH ×3 (08:20→16:12)
[2022-07-22] MEDS: FLUoxetine 20 MG CAPSULE PO (09:05)
[2022-07-22] MEDS: DOCUSATE 100 MG CAPSULE PO ×2 (09:05→21:07)
[2022-07-22] MEDS: guaiFENesin ER 600 MG TAB PO ×2 (09:05→21:06)
[2022-07-22] MEDS: polyethylene glycoL 3350 17 GM POWD.PACK PO (09:14)
--- NOTE | 2022-07-22 09:55 | P.PN_ITS ---
Subjective Subjective Date Patient Seen: 07/22/22 Time Patient Seen: 09:55 Interval history: Patient's pain is mild. Denies fever or chills. No shortness of breath or chest pain. Patient does continue to be nauseous. Otherwise without complaints. Exam Vital Signs (past 8 hours): - 07/22/22 04:27 07/22/22 08:20 Temperature 98.4 F Pulse Rate 75 72 Respiratory Rate 18 16 Blood Pressure 143/72 H Pulse Oximetry 92 92 Oxygen Delivery Method Room Air Oxygen Flow Rate 0 Fraction of Inspired Oxygen 21 SaO2/FiO2 Ratio 433 Oxygen Delivery Method Room Air Oxygen Flow Rate 0 Narrative Exam Narrative: 82-year-old male resting comfortably in bed in no apparent distress. Motor functions intact bilateral lower extremities. Sensation grossly intact to light touch bilateral lower extremities. Const General: cooperative and comfortable Nutritional Appearance: average body habitus Orientation: alert Resp Effort & Inspection: normal respiratory effort and able to speak in complete sentences Objective Labs 07/21/22 06:12 07/21/22 06:12 [facility] Medical History Allergic rhinosinusitis Anxiety Arthritis Asbestos exposure Burn Centrilobular emphysema Chronic pain syndrome COPD (chronic obstructive pulmonary disease) Depression Easy bruisability Facet arthropathy, lumbar Hyperlipidemia Lower urinary tract symptoms (LUTS) Lumbar radiculopathy Persistent asthma Rhinosinusitis Spondylolisthesis at L4-L5 level Surgical History History of carpal tunnel surgery of left wrist History of carpal tunnel surgery of right wrist History of tonsillectomy and adenoidectomy History 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 History of vasectomy Hx of nasal sinusotomy Family History Father No problems noted. Grandfather No problems noted. Social History household members: spouse Smoking Status: Former smoker alcohol intake: never Assessment & Plan Post-op Postoperative Procedures: Procedures Operation Date: 04/26/22 12:45 <No data on this case meets the specified criteria> Operation Date: 07/17/22 12:45 Actual Procedure Side Surgeon p L4-5 TLIF Not Applicable Jaden Day MD Postoperative day: 5 Postoperative status narrative: Patient improving slowly status post lumbar fusion Postoperative plan narrative: Mobilize with physical therapy, limit bending, twisting, lifting, patient currently is 2 person assist Hospitalist following patient for hematemesis versus hemoptysis recommend transitioning to oral Protonix at discharge. Currently treating empirically for potential aspiration pneumonia. CHER versus CKD 3 improving, COPD continue albuterol and Spiriva, normocytic anemia mild and stable. Hyponatremia mild continue to monitor Likely discharge to correction facility tomorrow if stable, currently pending insurance authorization Quality VTE Deep Vein Thrombosis/Pulmonary Embolism Present on Admission: No
--- NOTE | 2022-07-22 11:07 | PC.NURSE ---
Pt alert and oriented, follows commands, offers no overt complaint. Restful at present.
--- NOTE | 2022-07-22 12:36 | PC.NURSE ---
Pt restful initially, sleeping well, following commands. Pain meds of good effect. Pt asks appropriately for needs. Sugical site intact.
--- NOTE | 2022-07-22 16:56 | P.PN_ITS ---
Subjective Subjective Interval history: 82-year-old gentleman with underlying COPD, BPH with obstruction, depress ion/anxiety, chronic pain syndrome who is presently postoperative day 5 from a lumbar fusion.? Hospitalists were consulted after 2 episodes of hematemesis versus hemoptysis as well as hypoxia.? CT angiogram done on July 19 revealed mucous plugging in the bilateral lower lobes with possibility of aspiration noted.? Esophagitis was noted as well with some esophageal thickening.? Patient has been treated with IV antibiotics empirically with Rocephin and azithromycin. Patient reports he continues to feel better. His appetite is improving. He is drinking well. He does not feel constipated today. No shortness of breath. His back pain is improving. Exam Vital Signs (past 8 hours): - 07/22/22 11:29 07/22/22 16:12 Pulse Rate 77 68 Respiratory Rate 16 14 Pulse Oximetry 92 91 Oxygen Delivery Method Room Air Room Air Fraction of Inspired Oxygen 21 SaO2/FiO2 Ratio 433 Oxygen Delivery Method Room Air Oxygen Flow Rate 0 Narrative Exam Narrative: GEN:? Pleasant elderly male, Alert and oriented x 3, NAD HEENT:NC, Face symmetric CHEST: Respiratory excursions symmetric, mildly coarse bilaterally but CTAB CV: RRR, no M/R/G ABD: Soft, NT/ND, BT present in all 4 quadrants, no organomegaly or masses EXTR: warm, well perfused, no C/C/E SKIN: warm and dry, no rash NEURO: Alert and oriented x 3, nonfocal Objective Labs 07/21/22 06:12 07/21/22 06:12 [facility] Medical History Allergic rhinosinusitis Anxiety Arthritis Asbestos exposure Burn Centrilobular emphysema Chronic pain syndrome COPD (chronic obstructive pulmonary disease) Depression Easy bruisability Facet arthropathy, lumbar Hyperlipidemia Lower urinary tract symptoms (LUTS) Lumbar radiculopathy Persistent asthma Rhinosinusitis Spondylolisthesis at L4-L5 level Surgical History History of carpal tunnel surgery of left wrist History of carpal tunnel surgery of right wrist History of tonsillectomy and adenoidectomy History 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 History of vasectomy Hx of nasal sinusotomy Family History Father No problems noted. Grandfather No problems noted. Social History household members: spouse Smoking Status: Former smoker alcohol intake: never Assessment & Plan Assessment & Plan narrative: 1. Hematemesis versus hemoptysis Esophagitis found on CT.? Patient is on Protonix 40 mg IV b.i.d..? At discharge can transition to oral Protonix.? He is being treated empirically for potential aspiration pneumonia.? IV Access lost today. Will transition to oral cefdinir 300 mg b.i.d.. He will complete his course of antibiotic therapy on 07/24/2022. 2. CHER versus CKD 3 Creatinine was 1.33 on admission.? It has now improved at 1.25.? Likely he had a component of CHER which is resolved. CKD appears to have been ruled out. 3. Chronic pain syndrome secondary to spondylolisthesis and spinal stenosis of l umbar spine Patient is on Suboxone, tramadol, prednisone at baseline.? He receives meds through the pain clinic. 4. COPD No evidence of exacerbation.? Continue albuterol and Spiriva 5. Depression/anxiety Stable.? Continue fluoxetine 6.? BPH with obstruction Patient remained on Flomax. At this time, he wishes to continue his Avina catheter until tomorrow morning. He understands it will need to be removed prior to discharge. 7. Normocytic anemia Mild, stable 8. Hyponatremia Mild at 131 yesterday.? Down slightly from 134 yesterday.? Will repeat labs in the morning. Code status Full Surrogate decision maker Patient's spouse Prophylaxis No chemical prophylaxis ordered per primary team, work on increasing mobility. Disposition Accepted to [facility] tomorrow. Time Spent With Patient Critical Care time: I spent a total of [] minutes of critical care time on this patient's care today; this time is exclusive of procedural time. Quality VTE Deep Vein Thrombosis/Pulmonary Embolism Present on Admission: No
--- NOTE | 2022-07-22 17:47 | PT.IPTN ---
Current Diagnoses Chronic obstructive pulmonary disease, unspecified (07/17/22) Spondylolisthesis, lumbar region (07/17/22) Spinal stenosis, lumbar region with neurogenic claudication (07/17/22) Vomiting, unspecified (07/17/22) Arthrodesis status (07/17/22) Surgery Performed Operation Date: 04/26/22 12:45 <No data on this case meets the specified criteria> Operation Date: 07/17/22 12:45 Actual Procedures p L4-5 TLIF(Not Applicable) - Jaden Day MD Physical Therapy Treatment Note M2 PT-IP Current Condition Start: 07/18/22 12:30 Freq: NEEDED Status: Active Protocol: Document 07/21/22 11:29 SAK (Rec: 07/21/22 11:39 SAK [id number]) Physical Therapy Current Condition Current Condition Evaluation Date 07/18/22 Treatment Diagnosis s/p L4-5 TLIF; difficulty in walking Onset Date 07/17/22 M3 PT-IP Subjective Start: 07/18/22 12:30 Freq: NEEDED Status: Active Protocol: Document 07/22/22 17:34 LJ (Rec: 07/22/22 17:47 LJ [id number]) Subjective Physical Therapy Visit Type Type Treatment Note Visit Start Time 15:05 Visit Stop Time 15:21 Total Visit Minutes 16 Number of INTERNAL CONTROL CONSULTANT Visits 3 Physical Therapy Visit Comments Patient Comments Willing to work with PT. Patient Goals Get stronger to go home. Pt is agreeable to going to SNF. Therapy Pain Assessment Pain When Pain Assessed At Rest Pain Present Pain Present Denied Pain M4 PT-IP Mobility and Gait Start: 07/18/22 12:30 Freq: NEEDED Status: Active Protocol: Document 07/22/22 17:34 LJ (Rec: 07/22/22 17:47 LJ [id number]) PT-Bed Mobility Assessment Rolling Type of Rolling Roll to Right Level of Assist Contact Guard Assistance,1 Person Assistance Supine to Sit Supine to Sit Contact Guard Assistance, Bedrails Sit to Supine Sit to Supine Contact Guard Assistance, Bedrails PT-Transfer Assessment Sit to and From Stand Sit to and from Stand Contact Guard Assistance,Use of Upper Extremities Equipment Transfer Assistive Device Gait Belt,Front Wheeled Walker Orthotic/Prosthetic Devices or Brace: No Transfers Transfer Destination Bed Transfer Ability Level of Assist Contact Guard Assistance,Use of Upper Extremities Comments Mobility Comments Pt in bed. Bed flat, logroll to right CGA. SL>sit CGA with use of bedrails. Pt seated on side of bed several minutes prior to standing. Pt stood using UEs on bed and FWW CGA. Stood for ~30 sec then stated he needed to sit down again. Unwilling to attemot to stand again. Stated not feeling good. Pt sat on side of bed then sit>SL CGA. Logroll onto back CGA. Pt able to position self in bed. Head of bed elevated slightly. Pt left in bed and given all needs within reach. Alarm activated. Gait Assessment Gait Gait Assistance Required: Minimum Assistance,Moderate Assistance,2 Person Assist Comments Gait Comments see mobility comments Stair Climbing Assessment Comments Stair Climbing Comments Unable to assess, has 2 steps to kitchen once inside level enterance for safe return home . M5 PT-IP Objective Assessments Start: 07/18/22 12:30 Freq: NEEDED Status: Active Protocol: Document 07/21/22 11:29 SAK (Rec: 07/21/22 11:39 SAK [id number]) Gross Range of Motion Lower Extremity ROM Assessment Right Impaired Impairments lacking full knee extension, and is at least 30 degrees from neutral right ankle Strength Lower Extremity Strength Ankle 3- M6 PT-IP Treatment Start: 07/18/22 12:30 Freq: NEEDED Status: Active Protocol: Document 07/22/22 17:34 LUIS (Rec: 07/22/22 17:47 LJ [id number]) Physical Therapy Treatment Education Education Provided Weight Bearing Status,Safety M7 PT-IP Assessment and Plan Start: 07/18/22 12:30 Freq: NEEDED Status: Active Protocol: Document 07/22/22 17:34 LUIS (Rec: 07/22/22 17:47 LJ [id number]) PT Summary Assessment and Plan Potential Rehabilitation Potential Fair Status of Condition at Evaluation Evolving Summary Impairments Pain,ROM,Strength,Balance, Coordination,Sensation,Tone, Cognition,Bed Mobility, Transfers,Gait,Activity Tolerance Progress Towards Goals Slow Progress due to Pain,Slow Progress due to Activity Tolerance Assessment Summary Pt requiring CGA and cues to avoid twisting with logroll. CGA with use of UEs and bed rails SL>sit on side of bed. Transfer CGA. Standing balance with FWW SBA. Stand>sit on bed CGA. CGA with assisting LEs back onto bed. Logroll to back cues and CGA-SBA. Pt able to position self in bed. Left with call light and all needs within reach. Alarm activated . Goals Bed Mobility Goal Standby Assistance Transfer Goal Standby Assistance,Front Wheeled Walker Gait Goal Standby Assistance,Front Wheel Walker Gait Distance 75 Other Goals up/down 2 steps without AD/ least restrictive AD SBA Days to Meet Goals 10 Frequency of Treatment Frequency Of Treatment Twice a Day Treatment Plan Physical Therapy Treatment Plan Bed Mobility Training,Transfer Training,Gait Training, Therapeutic Exercise,Balance Retraining,Post Op Education, Discharge Planning,Hot or Cold Pack,Neuromuscular Re-ed, Coordination Retraining,Manual Therapy Precautions Lumbar Precautions Log Roll,No Twisting,Limit Bending,Lifting Restriction of 10 lbs,Gait Belt above Incisional Area Other Precautions falls Recommendations To Nursing Amount of Assist Needed 1 Person Assist Discharge Recommendations PT Discharge Recommendations SNF Rehab Transportation Needs at Discharge Wheelchair/Cabulance
--- NOTE | 2022-07-22 20:19 | RT ---
At 2018, the pt refused his scheduled budesonide and atrovent treatments, stating that he would like to sleep. Pt on RA, no apparent distress noted.
[2022-07-22] MEDS: ATORVASTATIN 20 MG TABLET PO (21:06)
[2022-07-22] MEDS: TAMSULOSIN 0.4 MG CAPSULE 0.8 MG PO (21:06)
[2022-07-22] MEDS: CEFDINIR 300 MG CAPSULE PO (21:06)
[2022-07-22] MEDS: MONTELUKAST 10 MG TABLET PO (21:06)
[2022-07-22] MEDS: SENNOSIDES 8.6 MG TABLET 17.2 MG PO (21:06)
[2022-07-23] MEDS: OXYCODONE IR 10 MG TABLET PO ×4 (05:19→20:43)
[2022-07-23 06:48] LABS: Add Manual Diff / Slide Review NO; Basophils Absolute Auto 0 /uL (0-100); Basophils Percent Auto 0.3 % (0-2); Eosinophils Absolute Auto 0 /uL (0-450); Hematocrit 37.2 % (41-53); Hemoglobin 12.7 g/dL (13.5-17.5); Lymphocytes Absolute Auto 1200 /uL (1100-4500); Lymphocytes Percent Auto 11.7 % (25-40); Mean Corpuscular HGB Conc 34.1 % (30-36); Mean Corpuscular Hemoglobin 30.8 PG (26-34); Mean Corpuscular Volume 90.2 fL (80-100); Monocytes Absolute Auto 900 /uL (0-900); Monocytes Percent Auto 9.3 % (3-14); Neutrophils Absolute Auto 7800 /uL (1500-7000); Neutrophils Percent Auto 78.7 % (50-75); Platelet Count 215 X10^3/uL (150-400); Red Blood Cell Count 4.12 X10^6/uL (4.5-5.9)
[2022-07-23 06:56] LABS: Blood Urea Nitrogen 25 mg/dL (9-20); Calcium 8.6 mg/dL (8.4-10.2); Carbon Dioxide 26 mmol/L (22-32); Chloride 99 mmol/L (98-107); Estimated Glomerular Filt Rate 58 mL/min (>60); Glucose 105 mg/dL (80-110); HEMOLYSIS < 15 (0-50); Potassium 3.9 mmol/L (3.4-5.1); Sodium 132 mmol/L (137-145)
[2022-07-23] MEDS: ACETAMINOPHEN 325 MG TABLET 650 MG PO ×2 (07:34→20:44)
[2022-07-23] MEDS: PANTOPRAZOLE DR 40 MG TABLET PO ×2 (07:34→20:57)
[2022-07-23] MEDS: FLUoxetine 20 MG CAPSULE PO (08:13)
[2022-07-23] MEDS: guaiFENesin ER 600 MG TAB PO ×2 (08:13→20:43)
[2022-07-23] MEDS: CEFDINIR 300 MG CAPSULE PO ×2 (08:14→20:44)
[2022-07-23] MEDS: DOCUSATE 100 MG CAPSULE PO ×2 (08:14→20:43)
[2022-07-23] MEDS: polyethylene glycoL 3350 17 GM POWD.PACK PO (08:14)
--- NOTE | 2022-07-23 08:15 | CM.DPC ---
Addendum entered by Anne-Marie Brock R.N. 07/23/22 15:00: Placed COVID swab order. Spouse had been the one coming in for caregiver training, as patient did not pass P.t. Addendum entered by Anne-Marie Brock R.N. 07/23/22 14:21: P.TAra worked with patient and caregiving training with son-in-law. She has deemed patient unsafe for home, became diaphoretic, unable to manage stairs. This will be second avoidable day, attempted to get patient to [facility], but they already had two admits, can't take another today. Contacted Radha at [facility], confirmed that they will pick him up tomorrow at 11:00. Will see if he needs updated COVID. Addendum entered by Anne-Marie Brock R.N. 07/23/22 11:37: Spoke to spouse today, reminded her that patient is medically stable for discharge today, [facility] was the only facility that could accept. She wants to take him home. Son-in-law, Juan C, will be here between [id number] for caregiver training. Spoke to Letha, physical therapist, she is aware. Patient did work with P.T. yesterday. He will need to manage a couple of steps. Left Hari at [facility] a message that patient is discharging home. Adding nursing, for med assess and pain management, along with P.T, and O.T. Dr. Calvo is aware of plan. Will fax over DC Summary, face to face, and orders to [facility]. Addendum entered by Anne-Marie Brock R.N. 07/23/22 09:25: Spoke to Lexus at [facility], confirmed, she could take patient today. Spoke to spouse, Lauryn. She is upset that [facility] could not accept. She indicated that his medication for asthma is done by the pulmonolisist, not due until 3-6. Spouse really does not want [facility]. Let her know that patient is medically stable today, and is an avoidable day. She stated, she is very worried, she is afraid that his stay may not be covered. She indicated, if he does well today, she wants to take him home and do home health, she has family that can help to get him home. Let her know that this DC senior media planner will discuss during team rounds, and see how he did with P.T. Addendum entered by Anne-Marie Brock R.N. 07/23/22 09:04: Called over at [facility], confirmed that they will accept patient tomorrow. supervisor instant potato processing time is at 11:00. Will update patient and spouse. Original Note: DCP Cont: Doretha from [facility] left a message on the DC Planning phone declining patient. She indicated that due to not only his Suboxone, concerned about managing his pain, and his monthly $5000.00 asthma injections. This DC Slip Presser left her a message indicated that they had already accepted patient, meds were to be adjusted, unclear as to why the facility suddenly changed their mind. Went ahead and updated the unit manager rn. Called over at [facility], Fatmata indicated that she has several admits tomorrow, unclear if she has enough beds, and that they are not really in the [facility] network, but [facility] is. Will follow up with [facility], and did leave a message with [facility] as well. P: DCP to work on placement. Called [facility], updated Rigo Jernigan, she is the family independence case manager for [facility] working today, and will update the chcf department. Stated, auth is still good for tomorrow. Anne-Marie Brock RN/Knockout Machine Operator
[2022-07-23] MEDS: IPRATROPIUM 0.5 MG/2.5 ML NEB INH ×3 (08:50→19:55)
[2022-07-23 08:51] VITALS: PULSE 86; RESP 14; O2SAT 92
[2022-07-23] MEDS: BUDESONIDE 0.5 MG/2 ML NEB INH ×2 (08:51→19:55)
[2022-07-23] MEDS: MAGNESIUM HYDROXIDE 30 ML UDC PO (12:59)
--- NOTE | 2022-07-23 14:05 | PT.IPTN ---
Current Diagnoses Chronic obstructive pulmonary disease, unspecified (07/17/22) Spondylolisthesis, lumbar region (07/17/22) Spinal stenosis, lumbar region with neurogenic claudication (07/17/22) Vomiting, unspecified (07/17/22) Arthrodesis status (07/17/22) Surgery Performed Operation Date: 04/26/22 12:45 <No data on this case meets the specified criteria> Operation Date: 07/17/22 12:45 Actual Procedures p L4-5 TLIF(Not Applicable) - Jaden Day MD Physical Therapy Treatment Note M2 PT-IP Current Condition Start: 07/18/22 12:30 Freq: NEEDED Status: Active Protocol: Document 07/21/22 11:29 SAK (Rec: 07/21/22 11:39 SAK [id number]) Physical Therapy Current Condition Current Condition Evaluation Date 07/18/22 Treatment Diagnosis s/p L4-5 TLIF; difficulty in walking Onset Date 07/17/22 M3 PT-IP Subjective Start: 07/18/22 12:30 Freq: NEEDED Status: Active Protocol: Document 07/23/22 14:05 NBM (Rec: 07/23/22 15:10 NBM [id number]) Subjective Physical Therapy Visit Type Type Treatment Note Visit Start Time 13:12 Visit Stop Time 14:05 Total Visit Minutes 53 Notes Caregiver training w/ spouse Velma for possible discharge home. Number of [employer] Visits 4 Physical Therapy Visit Comments Patient Comments Caregiver training w/ spouse Velma for possible discharge home today where son-in-law Juan C is waiting to assist. Willing to work with PT. Per extensive questioning with spouse determined pt would have 10 ft to enter home, then ~20 more feet inside and two steps up to access level for bathroom and sleeping. Patient Goals Get stronger to go home. Pt is agreeable to going to SNF. Therapy Pain Assessment Pain When Pain Assessed At Rest Pain Present Pain Present Pain Reported Location low back, right leg Description Aching,Pressure,Tender, Throbbing Pain Behaviors Calling Out,Facial Grimacing, Guarding,Restlessness,Wincing Pain Management Techniques Distraction,Modification of Treatment,Re-positioning M4 PT-IP Mobility and Gait Start: 07/18/22 12:30 Freq: NEEDED Status: Active Protocol: Document 07/23/22 14:05 NBM (Rec: 07/23/22 15:10 NBM [id number]) PT-Bed Mobility Assessment Rolling Type of Rolling Roll to Left Level of Assist Contact Guard Assistance,1 Person Assistance Sit to Supine Sit to Supine Contact Guard Assistance, Minimal Assistance,Bedrails Scooting Scooting Up and Down in Bed Moderate Assistance PT-Transfer Assessment Sit to and From Stand Sit to and from Stand Moderate Assistance,1 Person Assistance,Use of Upper Extremities Equipment Transfer Assistive Device Gait Belt,Front Wheeled Walker Orthotic/Prosthetic Devices or Brace: No Transfers Transfer Destination Bed Transfer Technique Stand Step Pivot Transfer Ability Level of Assist Moderate Assistance,1 Person Assistance,Use of Upper Extremities Comments Mobility Comments Pt in reclined in chair upon arrival with urinal, unable to void and willing to work with PT in preparation for discharge home. Treatment focus is caregiver training w/ spouse and stair training. Pt expresses L shoulder pain and is educated to keep shoulders down away from ears, especially when using FWW. Spouse able to don/doff gait belt above incision w/ initial cues and safe use of w/c with brakes and of FWW - caregiver cues pt appropriately for safe hand placement for Sit<> Stand. Caregiver struggles with safe body mechanics for providing assist with Sit<> Stands which she states is due to physical limitations. Pt sit<>stand w/ FWW from chair Jayce x2PA w/ cues for glute engagement and upright posture . Pt stands for ~2 min CGA until nausea/lightheadedness improve but demonstrates impulsiveness to ambulate and [employer] physically blocks FWW w/ L foot and directs pt again to wait. Pt then ambulates ~7ft to w/c and uses Stand Step Pivot transfer to back up to w /c and Stand>Sit w/ caregiver corrected for pt's safe handplacement. Caregiver pushes pt to ~7ft from training stairs and safely cues pt for sit<>stand w/ FWW Jayce and cues for glute engagement. Pt stands ~1min for lightheadedness/nausea to improve then ambulates ~7ft to stairs CGA and transfers to holding rails bilaterally for preparation to climb stairs. As soon as FWW and w/c are removed pt requests wheelchair because his left leg is giving out. [employer] provides ModA w/ gait belt and pt uses handrails bilaterally while spouse brings w/c and directs spouse to bring w/c to pt's back legs and cues pt to wait until w/c is close enough to safely sit. Stand>sit in w/c mod A 2PA. Pt reports intense nausea, diaphoresis and back pain and is sweating visibly, and requests return to bed without stair attempt. In room Sit>stand w/ FWW w/ caregvier Stand Step Pivot with lateral steps to sitting EOB right side of bed. Log roll to left w/ Jayce for RLE elevation. Pt and caregiver cued to let pt scoot up in bed by pushing through LLE w/ HOB lowered. Pt and spouse each able to recall precautions: no bending , lifting, twisting. Pt left in bed w/ HOB elevated, call light and all needs within reach. Pt and spouse in agreement with PT recommendations not to discharge home at this time. Gait Assessment Gait Gait Assistance Required: Minimum Assistance,Moderate Assistance,1 Person Assist Distance (Feet) 14 Able to Maintain Weight Bearing Status No During Gait Assistive Devices Assistive Device Gait Belt,Front Wheeled Walker Orthotic/Prosthetic Devices or Brace: No Gait Deviations General Gait Pattern Antalgic,Decreased Stride Length,Decreased Feet Clearance,Step-to Gait Factors Limiting Gait Function Factors Limiting Gait Function Decreased Activity Tolerance, Decreased Strength,Difficulty Following Directions,Limited Range of Motion,Pain,Poor Balance,Poor Safety Awareness Comments Gait Comments see mobility comments Stair Climbing Assessment Comments Stair Climbing Comments Unable to assess due to LLE giving out at base of stairs after ambulating 7 ft x 2. Pt has about 10ft to enter home, then about 20 more ft and 2 steps once inside level entrance for safe return home. PT-Balance Assessment Sitting Balance and Reactions Static Sitting Balance Ability Fair Dynamic Sitting Balance Ability Fair Standing Balance and Reactions Static Standing Balance Ability Fair Dynamic Standing Balance Ability Poor Device Used FWW Comments Other Balance Tests/Deviations/Treatment unable to achieve heelstrike : due to contracture right ankle , toes only, and weightbearing into R ankle painful today. M5 PT-IP Objective Assessments Start: 07/18/22 12:30 Freq: NEEDED Status: Active Protocol: Document 07/21/22 11:29 [facility] (Rec: 07/21/22 11:39 [facility] [id number]) Gross Range of Motion Lower Extremity ROM Assessment Right Impaired Impairments lacking full knee extension, and is at least 30 degrees from neutral right ankle Strength Lower Extremity Strength Ankle 3- M6 PT-IP Treatment Start: 07/18/22 12:30 Freq: NEEDED Status: Active Protocol: Document 07/23/22 14:05 NB (Rec: 07/23/22 15:10 [facility] [id number]) Physical Therapy Treatment Education Education Provided Precautions,Weight Bearing Status,Safety M7 PT-IP Assessment and Plan Start: 07/18/22 12:30 Freq: NEEDED Status: Active Protocol: Document 07/23/22 14:05 [facility] (Rec: 07/23/22 15:10 [facility] [id number]) PT Summary Assessment and Plan Potential Rehabilitation Potential Fair Status of Condition at Evaluation Evolving Summary Impairments Pain,ROM,Strength,Balance, Coordination,Sensation,Tone, Cognition,Bed Mobility, Transfers,Gait,Activity Tolerance Progress Towards Goals Slow Progress due to Pain,Slow Progress due to Activity Tolerance Assessment Summary Physical Therapy recommendation discharge to SNF rather than home at this time as pt is unable to attempt stairs this treatment and is limited by activity tolerance, weakness and pain. Pt needs to ambulate 10 ft to front entrance, then about 20 ft more and two steps up for safe discharge home. Today pt tolerated 2 x 7ft w/ one seated rest break, and was unable to maintain standing with bilateral railings due to left leg is giving out, right ankle pain, and increased nausea and diaphoresis. Per nursing offered pt to transfer to toilet or commode but pt declined stating their symptoms were not GI-related. They asked to return to bed. Spouse is lone caregiver available 18/12 and also expresses concern with ability to provide safe care for pt at this time due to physical ailments. Discussed w/ PT who is in agreement. Pt, spouse, Nursing, Hospitalist, and Care Management notified of PT recommendation for safe discharge to SNF rather than home at this time. Pt is able to recall surgical precautions 3/3 end of treatment session. Goals Bed Mobility Goal Standby Assistance Transfer Goal Standby Assistance,Front Wheeled Walker Gait Goal Standby Assistance,Front Wheel Walker Gait Distance 75 Other Goals up/down 2 steps without AD/ least restrictive AD SBA Days to Meet Goals 10 Frequency of Treatment Frequency Of Treatment Twice a Day Treatment Plan Physical Therapy Treatment Plan Bed Mobility Training,Transfer Training,Gait Training, Therapeutic Exercise,Balance Retraining,Post Op Education, Discharge Planning,Hot or Cold Pack,Neuromuscular Re-ed, Coordination Retraining,Manual Therapy Other Recommendations and Next Treatment bed mob, transfers, gait w/FWW Focus if able chair follow. Encourage up with nursing transfers, BSC. Precautions Lumbar Precautions Log Roll,No Twisting,Limit Bending,Lifting Restriction of 10 lbs,Gait Belt above Incisional Area Other Precautions falls Recommendations To Nursing Amount of Assist Needed 1 Person Assist Discharge Recommendations PT Discharge Recommendations SNF Rehab Transportation Needs at Discharge Wheelchair/Cabulance
--- NOTE | 2022-07-23 14:38 | P.PN_ITS ---
Subjective Subjective Interval history: 82-year-old gentleman with underlying COPD, BPH with obstruction, depress ion/anxiety, chronic pain syndrome who is presently postoperative day 6 from a lumbar fusion.? Hospitalists were consulted after 2 episodes of hematemesis versus hemoptysis as well as hypoxia.? CT angiogram done on July 19 revealed mucous plugging in the bilateral lower lobes with possibility of aspiration noted.? Esophagitis was noted as well with some esophageal thickening.? Patient has been treated with IV antibiotics empirically with Rocephin and azithromycin. IV access was lost yesterday and he was transitioned to cefdinir. He is on azithromycin prophylaxis 3 days weekly at baseline(for unclear reasons). This was continued. He was placed on IV Protonix secondary to his esophagitis symptoms and persistent nausea. Patient reports he is feeling fairly well. He continues to have significant back pain. He is not yet had a bowel movement but notes he feels as though he will soon. Does not feel constipated. No chest pain or shortness breath. No further nausea. Exam Vital Signs (past 8 hours): - 07/23/22 08:51 Pulse Rate 86 Respiratory Rate 14 Pulse Oximetry 92 Oxygen Delivery Method Room Air Fraction of Inspired Oxygen 21 SaO2/FiO2 Ratio 433 Oxygen Delivery Method Room Air Oxygen Flow Rate 0 Narrative Exam Narrative: GEN:? Pleasant elderly male, Alert and oriented x 3, NAD HEENT:NC, Face symmetric CHEST: Respiratory excursions symmetric, scattered expiratory wheezes in the bases bilaterally, otherwise clear CV: RRR, no M/R/G ABD: Soft, NT/ND, BT present in all 4 quadrants, no organomegaly or masses EXTR: warm, well perfused, no C/C/E SKIN: warm and dry, no rash NEURO: Alert and oriented x 3, nonfocal Objective Labs 07/23/22 06:09 07/23/22 06:09 Labs: Laboratory Results - last 24 hr 07/23/22 07/23/22 06:09 06:09 WBC 10.0 RBC 4.12 L Hgb 12.7 L Hct 37.2 L MCV 90.2 MCH 30.8 MCHC 34.1 RDW 14.0 Plt Count 215 Neut % (Auto) 78.7 H Lymph % (Auto) 11.7 L [place] % (Auto) 9.3 Eos % (Auto) 0.0 L Baso % (Auto) 0.3 Neut # (Auto) 7800 H Lymph # (Auto) 1200 [place] # (Auto) 900 Eos # (Auto) 0 Baso # (Auto) 0 Sodium 132 L Potassium 3.9 Chloride 99 Carbon Dioxide 26 BUN 25 H Creatinine 1.25 Estimated GFR 58 L BUN/Creatinine Ratio 20.0 Glucose 105 Calcium 8.6 PFSH Medical History Allergic rhinosinusitis Anxiety Arthritis Asbestos exposure Burn Centrilobular emphysema Chronic pain syndrome COPD (chronic obstructive pulmonary disease) Depression Easy bruisability Facet arthropathy, lumbar Hyperlipidemia Lower urinary tract symptoms (LUTS) Lumbar radiculopathy Persistent asthma Rhinosinusitis Spondylolisthesis at L4-L5 level Surgical History History of carpal tunnel surgery of left wrist History of carpal tunnel surgery of right wrist History of tonsillectomy and adenoidectomy History 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 History of vasectomy Hx of nasal sinusotomy Family History Father No problems noted. Grandfather No problems noted. Social History household members: spouse Smoking Status: Former smoker alcohol intake: never Assessment & Plan Assessment & Plan narrative: 1. Pneumonia with potential hemoptysis Patient had episodes of either hematemesis or hemoptysis for which the hospitalist service was consulted on 07/19/2022. He was placed on Rocephin and azithromycin. IV access was lost and he is transitioned to oral cefdinir and azithromycin. His final dose of cefdinir will be given on the evening dose of July 24. He has improved. He has no residual oxygen need. No hemoptysis. He does have scattered wheezes but overall is improved. 2. Esophagitis with associated nausea Continue PPI. He will be on b.i.d. PPI at discharge for 30 days. Nausea has resolved. 3. Chronic pain syndrome secondary to spondylolisthesis and spinal stenosis of lumbar spine Patient is on Suboxone, tramadol, prednisone at baseline.? He receives meds through the pain clinic. Unfortunately, he had been accepted to [facility] nursing [facility]. They had accepted him 2 days ago but ultimately decided today that they could not accept him related to his pain medications. 4. COPD Although he has scattered wheezes, he does not appear to have significant exacerbation.? Continue albuterol and Spiriva 5. Depression/anxiety Stable.? Continue fluoxetine 6.? BPH with obstruction Patient remained on Flomax.? Avina catheter is to be removed this morning. 7. Normocytic anemia Mild, stable 8. Hyponatremia Up from 131 on July 17-132 today. Patient is asymptomatic. Code status Full Resolved issues: CHER CKD 3 was ruled out Surrogate decision maker Patient's spouse Prophylaxis No chemical prophylaxis ordered per primary team, work on increasing mobility. Additionally, it would be contraindicated in the setting of hemoptysis or hemate mesis Disposition [facility], but he and his felt they would prefer to go home with home health. Physical therapy attempted to do caregiver teaching this afternoon. Unfortunately, patient was noted not to be safe with his mobility. Recommendation is for longterm facility. Disposition is pending. Time Spent With Patient Critical Care time: I spent a total of [] minutes of critical care time on this patient's care today; this time is exclusive of procedural time. Quality VTE Deep Vein Thrombosis/Pulmonary Embolism Present on Admission: No
[2022-07-23 16:05] VITALS: PULSE 71; RESP 14; O2SAT 92
[2022-07-23 16:11] LABS: COVID19 -Nasal RAPID Negative (Negative)
[2022-07-23 19:55] VITALS: PULSE 92; RESP 18; O2SAT 88
[2022-07-23] MEDS: TAMSULOSIN 0.4 MG CAPSULE 0.8 MG PO (20:42)
[2022-07-23] MEDS: ATORVASTATIN 20 MG TABLET PO (20:44)
[2022-07-23] MEDS: SENNOSIDES 8.6 MG TABLET 17.2 MG PO (20:45)
[2022-07-23] MEDS: MONTELUKAST 10 MG TABLET PO (20:45)
[2022-07-23 20:47] VITALS: BP 145/62; PULSE 94; RESP 17; TEMP 36.8; O2SAT 93
[2022-07-23 23:35] VITALS: BP 123/70; PULSE 89; RESP 18; TEMP 36.4; O2SAT 94
[2022-07-24 03:50] VITALS: BP 137/76; PULSE 83; RESP 18; TEMP 36.4; O2SAT 94
[2022-07-24] MEDS: PANTOPRAZOLE DR 40 MG TABLET PO (05:56)
[2022-07-24] MEDS: OXYCODONE IR 10 MG TABLET PO ×2 (05:56→09:36)
--- NOTE | 2022-07-24 07:47 | PM.PNPO.1 ---
Subjective Subjective Date Patient Seen: 07/24/22 Time Patient Seen: 07:47 Interval history: Patient notes his back pain is mild. Denies fever chills. Occasional feeling nauseous however significantly improved. Patient's last bowel movement was the day prior to surgery. No shortness of breath or chest pain. Exam Vital Signs (past 8 hours): - 07/24/22 03:50 Temperature 97.5 F L Pulse Rate 83 Respiratory Rate 18 Blood Pressure 137/76 Pulse Oximetry 94 Oxygen Flow Rate 0 Fraction of Inspired Oxygen 21 SaO2/FiO2 Ratio 419 Oxygen Delivery Method Room Air Oxygen Flow Rate 0 Narrative Exam Narrative: 82-year-old male resting comfortably in bed in no apparent distress. Motor functions intact bilateral lower extremities. Sensation grossly intact to light touch bilateral lower extremities. Const General: cooperative and comfortable Nutritional Appearance: average body habitus Resp Effort & Inspection: normal respiratory effort and able to speak in complete sentences Objective Labs 07/23/22 06:09 07/23/22 06:09 Labs: Laboratory Results - last 24 hr 07/23/22 15:45 SARS-CoV-2 (PCR) Negative [facility] Medical History Allergic rhinosinusitis Anxiety Arthritis Asbestos exposure Burn Centrilobular emphysema Chronic pain syndrome COPD (chronic obstructive pulmonary disease) Depression Easy bruisability Facet arthropathy, lumbar Hyperlipidemia Lower urinary tract symptoms (LUTS) Lumbar radiculopathy Persistent asthma Rhinosinusitis Spondylolisthesis at L4-L5 level Surgical History History of carpal tunnel surgery of left wrist History of carpal tunnel surgery of right wrist History of tonsillectomy and adenoidectomy History 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 History of vasectomy Hx of nasal sinusotomy Family History Father No problems noted. Grandfather No problems noted. Social History household members: spouse Smoking Status: Former smoker alcohol intake: never Assessment & Plan Post-op Postoperative Procedures: Procedures Operation Date: 04/26/22 12:45 <No data on this case meets the specified criteria> Operation Date: 07/17/22 12:45 Actual Procedure Side Surgeon p L4-5 TLIF Not Applicable Jaden Day MD Postoperative day: 7 Postoperative status narrative: Stable status post L4-L5 fusion July 17, 2022, patient has been slow to progress and will need half-way facility placement. Hospitalist following for pneumonia with potential hemoptysis patient currently being treated with oral antibiotics. Esophagitis with associated nausea continue PPI. COPD continue albuterol and Spiriva. Depression/anxiety continue fluoxetine. 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 Normal 7 anemia, stable. Hyponatremia improving and asymptomatic. Postoperative plan: routine post-op care Postoperative plan narrative: Continue physical therapy, weight-bearing as tolerated, limit bending, twisting, lifting Multimodal pain management Follow-up in 2 weeks Discharge to half-way facility today. Quality VTE Deep Vein Thrombosis/Pulmonary Embolism Present on Admission: No
--- NOTE | 2022-07-24 08:23 | P.DS_ITS ---
History of Present Illness History of Present Illness Date Patient Seen: 07/24/22 Chief complaint: back pain Narrative: Tima Barrow is an 82-year-old male with a medical history of COPD, BPH with obstruction, depression with anxiety, chronic pain syndrome secondary to spondylolisthesis and spinal stenosis of the lumbar.? Patient was admitted and is postop day 2 for a lumbar spinal fusion by Dr. Eckert,? Dr. Michelle graciously requested that we consult regarding 2 episodes of hematemesis that have just occurred, that were guaiac positive.? Subsequently per the nurse's report the patient's O2 saturation decreased, blood pressure elevated? and respiratory rate elevated, he was placed on a oxygen mask. At the time of consult patient is resting comfortably and has not vomited further, febrile 101.7 BP 160/84, 84, 22, 94% on 2L/Mask.? No baseline labs or imaging are in the patient's chart only in H&H which was 12.3/36.3.? Ordered stat CBC, CMP, procalcitonin, lactate, CRP, ESR, blood cultures, wound culture if there is any drainage coming from the incision, and chest x-ray.? Consult ation for hematemesis postop spinal lumbar fusion day two. Discharge Providers Provider Date of admission: 07/17/22 10:47 Discharge Date: 07/24/22 Primary care physician: ONEIL Clayton Consults: 07/17/22 16:16 Consult to Occupational Therapy Evaluate & Treat Comment: Physician Instructions: Evaluate and treat Consult to Physical Therapy Evaluate & Treat Comment: Physician Instructions: Evaluate and Treat 07/18/22 15:17 Consult to Home Health Routine Comment: Reason For Exam: Home Health P.T, O.T. 07/23/22 11:41 Consult to Home Health Routine Comment: Reason For Exam: Home Health RN, P.T, and O.T. Discharge provider: Kiel Ospina DO Summary Hospital Course Discharge Diagnosis: 1. Pneumonia with potential hemoptysis Patient had episodes of either hematemesis or hemoptysis for which the hospitalist service was consulted on 07/19/2022.? He was placed on Rocephin and azithromycin.? IV access was lost and he is transitioned to oral cefdinir and azithromycin.? His final dose of cefdinir will be given on the evening dose of July 24.? He has improved.? He has no residual oxygen need.? No hemoptysis.? He does have scattered wheezes but overall is improved. 2. Esophagitis with associated nausea Continue PPI.? He will be on b.i.d. PPI at discharge for 30 days.? Nausea has resolved. 3. Chronic pain syndrome secondary to spondylolisthesis and spinal stenosis of lumbar spine Patient is on tramadol, prednisone at baseline.? No longer on suboxone so this was taken off of med list on discharge. 4. COPD Although he has scattered wheezes, he does not appear to have significant exacerbation.? Continue albuterol and Spiriva 5. Depression/anxiety Stable.? Continue fluoxetine 6.? BPH with obstruction Patient remained on Flomax.? Avina catheter is to be removed this morning. 7. Normocytic anemia Mild, stable 8. Hyponatremia Up from 131 on July 17-132.? Patient is asymptomatic. 9. Stable status post L4-L5 fusion July 17, 2022, patient has been slow to progress and will need snf facility placement. Postoperative plan narrative: Continue physical therapy, weight-bearing as tolerated, limit bending, twisting, lifting Multimodal pain management Follow-up in 2 weeks Hospital Course: See problem list above. Time Spent with Patient Time spent: Greater than 30 minutes Exam Vital Signs (past 8 hours): - 07/24/22 03:50 Temperature 97.5 F L Pulse Rate 83 Respiratory Rate 18 Blood Pressure 137/76 Pulse Oximetry 94 Oxygen Flow Rate 0 Fraction of Inspired Oxygen 21 SaO2/FiO2 Ratio 419 Oxygen Delivery Method Room Air Oxygen Flow Rate 0 Narrative Exam Narrative: GEN:? Pleasant elderly male, Alert and oriented x 3, NAD HEENT:NC, Face symmetric CHEST: Respiratory excursions symmetric, scattered expiratory wheezes in the bases bilaterally, otherwise clear CV: RRR, no M/R/G ABD: Soft, NT/ND, BT present in all 4 quadrants, no organomegaly or masses EXTR: warm, well perfused, no C/C/E SKIN: warm and dry, no rash NEURO: Alert and oriented x 3, nonfocal Objective Labs 07/23/22 06:09 07/23/22 06:09 Labs: Laboratory Results - last 24 hr 07/23/22 15:45 SARS-CoV-2 (PCR) Negative [facility] Medical History Allergic rhinosinusitis Anxiety Arthritis Asbestos exposure Burn Centrilobular emphysema Chronic pain syndrome COPD (chronic obstructive pulmonary disease) Depression Easy bruisability Facet arthropathy, lumbar Hyperlipidemia Lower urinary tract symptoms (LUTS) Lumbar radiculopathy Persistent asthma Rhinosinusitis Spondylolisthesis at L4-L5 level Surgical History History of carpal tunnel surgery of left wrist History of carpal tunnel surgery of right wrist History of tonsillectomy and adenoidectomy History 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 History of vasectomy Hx of nasal sinusotomy Family History Father No problems noted. Grandfather No problems noted. Social History household members: spouse Smoking Status: Former smoker alcohol intake: never Discharge Assessment & Plan Assessment and Plan Assessment: Patient progressing as expected status post lumbar fusion Plan of Treatment: Multimodal pain management Mobilize with physical therapy, weight-bearing as tolerated, limit bending, twisting, lifting Keep dressing clean and dry Discharge home today after physical therapy if safe for home environment Discharge Plan Discharge Plan Patient Disposition: SNF Transfer to: [facility] Under care of provider: Facility MD Provider Discharge Comment: Use precautions with movement as recommended by therapy. You will continue antibiotics for 2 more days for pneumonia. Use mucinex as needed for expectorating phlegm. You were started on pantoprazole (Protonix) as there was evidence of esophagitis (inflammation/irritation from stomach acid). Please take this twice daily for four weeks, then once daily. Return to the ED for fevers, Shortness of breath, or inability to hold down food/fluids Discharge orders & Medications Prescriptions: New docusate sodium 100 mg Capsule 100 mg PO BID Qty: 10 0RF hydroxyzine pamoate 25 mg Capsule 25 mg PO Q4HR PRN (Reason: Nausea And Vomiting) Qty: 20 0RF oxycodone 10 mg Tablet 5 mg PO Q3HR PRN (Reason: Pain, Severe (7-10)) Qty: 60 0RF cefdinir 300 mg Capsule 300 mg PO BID Qty: 5 0RF guaifenesin [Mucus Relief ER] 600 mg Tablet Extended Release 12hr 600 mg PO BID PRN (Reason: congestion) Qty: 14 0RF polyethylene glycol 3350 17 gram Powder In Packet 17 g PO DAILY Qty: 30 0RF pantoprazole 40 mg Tablet,Delayed Release (Dr/Ec) 40 mg PO 0700,2100 Qty: 60 0RF ondansetron 4 mg Tablet,Disintegrating 4 mg sublingual Q4HR PRN (Reason: Nausea) Qty: 30 0RF sennosides [senna] 8.6 mg Tablet 17.2 mg PO BEDTIME PRN (Reason: constipation) Qty: 30 0RF Continued montelukast 10 mg Tablet 10 mg PO BEDTIME fluticasone propionate 50 mcg/actuation [place],Suspension 1 - 2 spray INTRANASAL DAILY PRN (Reason: Nasal Congestion) Label Comments: Unsure if patient takes this cholecalciferol (vitamin D3) [Vitamin D3] 5,000 unit Tablet 500,000 unit PO QWEEK tamsulosin 0.4 mg Capsule,Extended Release 24hr 0.8 mg PO BEDTIME albuterol sulfate [Ventolin HFA] 90 mcg/actuation Hfa Aerosol Inhaler 2 puff INHALATION Q4-6H PRN (Reason: copd) Spiriva with HandiHaler 18 mcg Capsule, W/Inhalation Device 2 cap INHALATION DAILY Qty: 0 Rx Instructions: puncture 1 cap using device; one dose = 2 inhalations atorvastatin 20 mg Tablet 20 mg PO DAILY albuterol sulfate 2.5 mg /3 mL (0.083 %) Solution For Nebulization 2.5 mg INHALATION Q4-6H PRN (Reason: Shortness Of Breath) aspirin 325 mg Tablet 325 mg PO Q OTHER DAY fluticasone propion-salmeterol [Wixela Inhub] 500-50 mcg/dose Blister With Device 1 inh INHALATION BID azithromycin 250 mg capsule 250 mg PO QMWF fluoxetine 20 mg capsule 20 mg PO DAILY Discontinued buprenorphine-naloxone 8-2 mg Tablet, Sublingual 2.5 tab SUBLINGUAL DAILY Rx Instructions: takes 18mg daily acetaminophen 500 mg Capsule 1,000 mg PO Q6H PRN (Reason: Pain) Follow up/Referrals: Jaden Day MD [Physician] - As previously scheduled Felicita Milan ARNP [Primary Care Provider] - Discharge Health Status Multidrug resistant organism: No MDRO Diet/Activity/Treatments Diet: Diet as Tolerated and Regular Liquid consistency: Normal/Thin Food texture: Regular Activity: Up and walking as tolerated, limit bending, twisting, lifting Oxygen: N/A Skin/Wound/Dressing Care Report to your healthcare provider any signs of infection, such as:: chills, fever, night sweats, unusual drainage and unusual redness Dressing: May shower. Keep dressing clean, dry, and intact until your 2 week postoperative follow up with orthopedics. If it becomes wet please call our office for dressing change. [facility] Rehab type: Physical therapy and Occupational therapy Restrictions to mobility: Limit bending and twisting, no lifting over 10 pounds. Visit Report/Discharge Packet Instructions: DI for Prescription Opioid Use, DI for Transforaminal Lumbar Interbody Fusion Stand Alone Forms: Patient Portal/API, Stroke Signs & Symptoms, Surgery Discharge Discharge Data Primary Care Provider: Felicita Milan Quality VTE Deep Vein Thrombosis/Pulmonary Embolism Present on Admission: No
[2022-07-24 08:32] VITALS: PULSE 86; O2SAT 92
[2022-07-24] MEDS: BUDESONIDE 0.5 MG/2 ML NEB INH (08:32)
[2022-07-24] MEDS: IPRATROPIUM 0.5 MG/2.5 ML NEB INH ×2 (08:32→13:26)
--- NOTE | 2022-07-24 08:58 | CM.DPC ---
Addendum entered by Anne-Marie Brock R.N. 07/24/22 10:56: [place] from [facility] called, stated that they can't take patient, one of their admission nurses is ill, and they have no one in admissions. Called over at [facility], [facility] can accept patient today. Asked Michelle to fax over the orders. Spoke to spouse, Lauryn, was in tears. She is not feeling well herself, was thinking about going to the ER in [facility]. She feels that her is not participating with P.T, worried about her ankle. She also is aware that she can't take him home. She is ok with [facility], but hopes that she can have him moved closer. Patient will now be picked up at 1400. Left a message with Enrique Browne human services case manager to call back so she can be updated on facility. Original Note: DCP Cont: Spoke to Hollie Kaba at [facility], confirmed that auth is still good. She will update the prison department about patient discharging to [facility] today. Orthopedist SERENA did not do discharge orders, asked Dr. Ospina if he can complete orders, which he just completed. Michelle, [facility] pharmacy affairs assistant, is faxing over to [facility]. Did speak to [place] at [facility] today. P: Patient is discharging today. Anne-Marie Brock, RN/[employer] Gun [employer]er
[2022-07-24 09:00] VITALS: BP 103/62; PULSE 77; RESP 17; TEMP 36.5; O2SAT 94
[2022-07-24] MEDS: guaiFENesin ER 600 MG TAB PO (09:25)
[2022-07-24] MEDS: FLUoxetine 20 MG CAPSULE PO (09:25)
[2022-07-24] MEDS: DOCUSATE 100 MG CAPSULE PO (09:25)
[2022-07-24] MEDS: CEFDINIR 300 MG CAPSULE PO (09:25)
[2022-07-24] MEDS: polyethylene glycoL 3350 17 GM POWD.PACK PO (09:29)
[2022-07-24] MEDS: FLEETS ENEMA 1 EACH PR (09:33)
[2022-07-24] MEDS: AZITHROMYCIN 250 MG TABLET PO (09:33)
[2022-07-24] MEDS: ACETAMINOPHEN 325 MG TABLET 650 MG PO (09:36)
[2022-07-24] MEDS: hydrOXYzine pamoate 25 MG CAPSULE PO (09:36)
[2022-07-24 11:00] VITALS: BP 118/62; PULSE 90; RESP 17; TEMP 36.2; O2SAT 92
[2022-07-24 13:26] VITALS: PULSE 90; O2SAT 91
--- NOTE | 2022-07-24 14:26 | PC.NURSE ---
Pt is A&OX3, VSS, afebrile on RA. Pt is ordered to have an enema due to several days of constipation. After enema patient is able to pass an extra large BM. He is unable to void entire shift and per noc shift RN, patient was straight cath'd for bladder scan>500ml and unable to void during the night. Bladder scan at 1345, 360 on and patient denies feeling the urge to void. MD notified and placed guevara catheter prior to discharge, 360 ml obtained clear, yellow urine. He reports pain is well controlled, incision c/d/i to back. Pt is a mod assist to w/ch and is assisted to the wheelchair for transport to [facility] this afternoon with all of his belongings. Report called to Jackeline at approximately 1400.
== END 2022-07-24 14:10 | DRG 453 ==
PROVIDERS: Family Medicine; Internal Medicine; Nurse Practitioner Family; Orthopaedic Surgery; Admitting Provider Orthopaedic Surgery Orthopaedic Surgery of the Spine; PCP Nurse Practitioner Family; Referring Provider Orthopaedic Surgery Orthopaedic Surgery of the Spine; Visit Provider Orthopaedic Surgery Orthopaedic Surgery of the Spine
PROC: 0SG00AJ Fusion of Lumbar Vertebral Joint with Interbody Fusion Device, Posterior Approach, Anterior Column, Open Approach (ICD-10-PCS; principal; 2022-07-17 12:45)
DX: M43.16 Spondylolisthesis, lumbar region (principal); J18.9 Pneumonia, unspecified organism; J96.01 Acute respiratory failure with hypoxia; K92.0 Hematemesis; N13.8 Other obstructive and reflux uropathy; E87.1 Hypo-osmolality and hyponatremia; R04.2 Hemoptysis; M48.061 Spinal stenosis, lumbar region without neurogenic claudication; F32.A Depression, unspecified; J44.9 Chronic obstructive pulmonary disease, unspecified; F41.9 Anxiety disorder, unspecified; N40.1 Benign prostatic hyperplasia with lower urinary tract symptoms; G89.4 Chronic pain syndrome; E78.5 Hyperlipidemia, unspecified; K20.90 Esophagitis, unspecified without bleeding; Z87.891 Personal history of nicotine dependence; Z20.822 Contact with and (suspected) exposure to COVID-19
CPT/HCPCS: 0241U; 36415; 71045; 71275; 72100; 76000; 80048; 80053; 81001; 82962; 83605; 83735; 84145; 85007; 85014; 85018; 85025; 85610; 87040; 87635; 94640; 94760; 97116; 97162; 97165; 97530; 97535; C9803; C1713; C1831; C9113; C9290; J0330; J0690; J0696; J1100; J1170; J2405; J2704; J3010; J7613